=== PATIENT | male | born 1945 | race Caucasian/White ===

== ENCOUNTER 2017-05-23 05:49 | Inpatient (IN) | payer OTHER ==
[2017-05-23] MEDS ORDERED: LIDOCAINE 1% 2 ML INJ ONE (06:08)
[2017-05-23] MEDS ORDERED: LR 1,000 ML IV ONE (06:47)
[2017-05-23 06:52] LABS: % IMMATURE GRANULYOCYTES 0.3 % (0.0-1.1); ABSOLUTE IMMATURE GRANULOCYTES 0.02 10^3/uL (0.00-0.10); ADD DIFF? NO; ADD MORPH? NO; ADD SCAN? NO; ATYPICAL LYMPHOCYTE FLAG 10 (0-99); FRAGMENT RBC FLAG 0 (0-99); HEMATOCRIT 44.5 % (40.0-51.0); LEFT SHIFT FLG 0 (0-99); LIPEMIA HEMOLYSIS FLAG 80 (0-99); MEAN CELL HEMOGLOBIN 31.8 pg (27.9-34.1); MEAN CELL HEMOGLOBIN CONCENTR. 33.7 g/dL (32.4-36.7); MEAN CELL VOLUME 94.5 fL (81.5-99.8); MEAN PLATELET VOLUME 9.4 fL (8.7-11.7); PLATELET CLUMPS FLAG 0 (0-99); PLATELET COUNT 244 10^3/uL (150-400); RED BLOOD CELL COUNT 4.71 10^6/uL (4.40-6.38); RED CELL DISTRIBUTION WIDTH 12.7 % (11.5-15.2)
[2017-05-23] MEDS ORDERED: THROMBIN (BOVINE) 5,000 UNIT VIAL TP ONE (06:52)
[2017-05-23] MEDS ORDERED: BUPIVACAINE/EPI 0.5% 30 ML SDV ONE (06:52)
[2017-05-23] MEDS ORDERED: CALCIUM CHLORIDE 1 GM/10 ML INJ ONE (06:53)
[2017-05-23] MEDS ORDERED: BACITRACIN 50,000 UNITS/10 ML SYR IRR ONE (06:53)
[2017-05-23] MEDS ORDERED: POLYMYXIN B SULFATE 500,000 UNIT/10 ML SYR IRR ONE (06:53)
[2017-05-23] MEDS ORDERED: LIDOCAINE 1% 2 ML INJ ID PRN (07:01)
[2017-05-23] MEDS ORDERED: fentaNYL 100 MCG/2 ML INJ ONE (07:05)
[2017-05-23] MEDS ORDERED: ROPIVACAINE 0.2% 80 MG, EPINEPHrine 0.2 MG, KETOROLAC TROMETHAMINE 30 MG, morphINE 10 M... IU ONE (07:07)
[2017-05-23] MEDS ORDERED: ACETAMINOPHEN 500 MG TAB PO ONE (07:07)
[2017-05-23] MEDS ORDERED: ceFAZolin 2 GM/DEXTROSE 100 ML IV ONE (07:07)
[2017-05-23] MEDS ORDERED: MIDAZOLAM 2 MG/2 ML VIAL ONE (07:08)
[2017-05-23] MEDS ORDERED: PROPOFOL/EMULSION 500 MG/50 ML BOTTLE IV ONE (07:09)
--- NOTE | 2017-05-23 07:09 | PDHPUP ---
History & Physical Update H&P update statement: This history and physical update is based on an assessment of the patient which was completed after admission or registration (within 24 hours), but prior to the surgery/procedure. H&P update: H&P reviewed & patient examined, no change in patient's condition since H&P completed
--- NOTE | 2017-05-23 07:26 | PDGENHP ---
History & Physical Chief Complaint: l knee pain History of Present Illness: l knee pain Pertinent Past, Social, Family History: non-contributory Relevant Physical Exam: varus angle to l knee with spurring medially Cardiorespiratory Assessment: rrr. cta
[2017-05-23] MEDS ORDERED: ONDANSETRON 4 MG/2 ML VIAL ONE (07:54)
[2017-05-23] MEDS ORDERED: ROPIVACAINE HCL 150 MG/30 ML INJ ONE (07:54)
[2017-05-23] MEDS ORDERED: MEPERIDINE 25 MG/ML SYR IVP PRN (08:21)
[2017-05-23] MEDS ORDERED: METOCLOPRAMIDE 10 MG/2 ML VIAL IVP PRN ×2 (08:21→09:32)
[2017-05-23] MEDS ORDERED: ONDANSETRON 4 MG/2 ML VIAL IVP PRN ×2 (08:21→09:32)
[2017-05-23] MEDS ORDERED: PROMETHAZINE HCL 25 MG/ML INJ IVP PRN ×2 (08:21→09:32)
[2017-05-23] MEDS ORDERED: fentaNYL 100 MCG/2 ML INJ IVP PRN (08:21)
[2017-05-23] MEDS ORDERED: LR 500 ML IV PRN (08:21)
[2017-05-23] MEDS ORDERED: NALOXONE HCL 0.4 MG/ML INJ IVP PRN (08:21)
[2017-05-23] MEDS ORDERED: HYDROmorphONE/DILAUDID 1 MG/ML SYR IVP PRN (08:21)
[2017-05-23] MEDS ORDERED: ALBUTEROL 3 ML DEYVIAL IH PRN (08:21)
--- NOTE | 2017-05-23 08:26 | PDANEPAE ---
ANE Past Medical History - Cardiovascular History Hx Hypertension: Yes Hx Arrhythmias: No Hx Chest Pain: No Hx Coronary Artery / Peripheral Vascular Disease: No Hx CHF / Valvular Disease: No Hx Palpitations: No - Pulmonary History Hx COPD: No Hx Asthma/Reactive Airway Disease: No Hx Recent Upper Respiratory Infection: No Hx Oxygen in Use at Home: No Hx Sleep Apnea: Yes Sleep Apnea Screening Result - Last Documented: Positive Pulmonary History Comment: h/o sleep apnea - Neurologic History Hx Cerebrovascular Accident: No Hx Seizures: No Hx Dementia: No - Endocrine History Hx Diabetes: Yes Endocrine History Comment: DMII - Renal History Hx Renal Disorders: No - Liver History Hx Hepatic Disorders: No - Neurological & Psychiatric Hx Hx Neurological and Psychiatric Disorders: No - Cancer History Hx Cancer: No - Congenital Disorder History Hx Congenital Disorders: No - GI History Hx Gastrointestinal Disorders: No - Other Health History Other Health History: missing teeth - Chronic Pain History Chronic Pain: Yes (left knee) - Surgical History Prior Surgeries: left knee scoped. left rotator cuff surgery. heart cath ANE Review of Systems - Exercise capacity METS (RN): 4 METS ANE Patient History - Allergies Allergies/Adverse Reactions: No Known Allergies Allergy (Unverified 04/28/17 11:38) - Home Medications Home Medications: Cholecalciferol Vit D3 [Vitamin D3 (*)] 1,000 units PO DAILY 04/28/17 [Last Taken 1 Week Ago] Fluticasone Nasal [Flonase Nasal [place] (RX)] 1 - 2 sprays NASAL DAILY PRN [Last Taken 1 Week Ago] Herbals/Supplements -Info Only 1 ea PO DAILY 04/28/17 [Last Taken 1 Week Ago] Lisinopril [Zestril 20 mg (*)] 20 mg PO DAILY 04/28/17 [Last Taken 05/23/17 05: 00] Montelukast Sodium [Singulair 10 mg (*)] 10 mg PO HS PRN 04/28/17 [Last Taken ] Simvastatin [Zocor] 20 mg PO HS 04/28/17 [Last Taken 05/22/17 21:00] metFORMIN HCL [Glucophage 500 mg (*)] 500 mg PO DAILY 04/28/17 [Last Taken 05/20 09:00] Naproxen Sodium [Aleve 220 MG (*)] 220 mg PO DAILY PRN 05/05/17 [Last Taken 1 Week Ago] Vicodin 5-300 mg Tablet 05/05/17 [Last Taken 05/22/17 20:00] - NPO status NPO Since - Liquids (Date): 05/22/17 NPO Since - Liquids (Time): 21:00 NPO Since - Solids (Date): 05/22/17 NPO Since - Solids (Time): 18:00 - Smoking Hx Smoking Status: Never smoked - Family Anes Hx Family Hx Anesthesia Complications: none ANE Labs/Vital Signs - Labs Result Diagrams: 05/23/17 06:40 - Vital Signs Blood Pressure: 154/80 Heart Rate: 61 Respiratory Rate: 16 O2 Sat (%): 93 Height: 170.18 cm Weight: 88.451 kg ANE Physical Exam - Airway Neck exam: FROM Mallampati Score: Class 2 Mouth exam: normal dental/mouth exam - Pulmonary Pulmonary: no respiratory distress, clear to auscultation - Cardiovascular Cardiovascular: regular rate and rhythym - ASA Status ASA Status: III ANE Anesthesia Plan Anesthesia Plan: spinal Regional Anesthesia: single shot NB
[2017-05-23] MEDS ORDERED: PHENYLEPHRINE HCL 100 MCG/ML SYR ONE (08:38)
[2017-05-23] MEDS ORDERED: MONTELUKAST SODIUM 10 MG TAB PO PRN (09:31)
[2017-05-23] MEDS ORDERED: FLUTICASONE NASAL 120 SPRAYS/16 GM MDI EACHNARE PRN (09:31)
--- NOTE | 2017-05-23 09:31 | POSTOPPROG ---
Post Op Note Date of Operation: 05/23/17 Surgeon: China Hernandez Airconditioning Plant Operator: kaz Anesthesiologist: pepe Anesthesia: Epidural, IV Sedation Pre-op Diagnosis: l knee oa Procedure: l tkr Inf/Abcess present in the surg proc area at time of surgery?: No Depth: Deep Incisional (Fascial) EBL: 100-500
[2017-05-23] MEDS ORDERED: PHARMACY PAIN CONSULT 1 EA MISC PRN (09:32)
[2017-05-23] MEDS ORDERED: BISACODYL 10 MG SUPP PR PRN (09:32)
[2017-05-23] MEDS ORDERED: TEMAZEPAM 15 MG CAP PO PRN (09:32)
[2017-05-23] MEDS ORDERED: ONDANSETRON DISINTEGRATING 4 MG TAB PO PRN (09:32)
[2017-05-23] MEDS ORDERED: LACTULOSE 20 GM/30 ML UDCUP PO PRN (09:32)
[2017-05-23] MEDS ORDERED: DIPHENOXYLATE/ATROPINE LOMOTIL 1 TAB PO PRN (09:32)
[2017-05-23] MEDS ORDERED: POLYETHYLENE GLYCOL 3350 17 GM PKT PO PRN (09:32)
[2017-05-23] MEDS ORDERED: diphenhydrAMINE 25 MG CAP PO PRN (09:32)
[2017-05-23] MEDS ORDERED: PROMETHAZINE HCL 25 MG SUPPR PR PRN (09:32)
[2017-05-23] MEDS ORDERED: TAPENTADOL HCL 50 MG TAB PO PRN (09:32)
[2017-05-23] MEDS ORDERED: MAGNESIUM HYDROXIDE 30 ML UDCUP PO PRN (09:32)
[2017-05-23] MEDS ORDERED: CYCLOBENZAPRINE 10 MG TAB PO PRN (09:32)
[2017-05-23] MEDS ORDERED: LR 1,000 ML IV SCH (10:00)
--- NOTE | 2017-05-23 10:29 | POSTANESTH ---
Post Anesthetic Evaluation Respiratory Status: Normal, Stable Level of Consciousness/Mental Status: Can Participate in Eval Pain Control: Adequate, Prn Tx Ordered Nausea/Vomiting Control: Adequate, Prn Tx Ordered Complications Possibly Related to Anesthesia: None Noted
--- NOTE | 2017-05-23 11:52 | GOP ---
[f rep st] OPERATIVE REPORT DATE OF OPERATION: 05/23/2017 SURGEON: China Hernandez MD SR. PAYROLL PROCESSOR: Terrell Camara, Certified SA whose presence was medically necessary. ANESTHESIA: By epidural nerve block. PREOPERATIVE DIAGNOSIS: Left knee osteoarthritis. POSTOPERATIVE DIAGNOSIS: Left knee osteoarthritis. PROCEDURE PERFORMED: Left total knee arthroplasty. FINDINGS: INDICATIONS: This is a 71-year-old male with a long history of left knee pain worsening with use with time. X-ray exam reveals [id number] osteoarthritic changes to the medial compartment. He wishes to have surgery in order to resolve the problem. DESCRIPTION OF PROCEDURE: Patient was brought to the operating room after the left side had been identified as the correct side by the patient, nurse, and physician. Once in the operating room he was given an epidural nerve block. He then had a tourniquet placed around the upper portion of the left thigh, and the left lower extremity sterilely prepped and draped in usual fashion using a GSI solution. Once prepped and draped, the limb was exsanguinated, tourniquet inflated to 250 mmHg. An anterior incision was made along with skin 1 handbreadth above and below the patella, but not using a prior parapatellar skin incision. Sharp dissection was carried down through the skin and subcutaneous layers where bleeding controlled using electrocautery. A medial parapatellar approach was carried through the extensor mechanism with the extensor mechanism brought to the thigh but not everted. He was noted to have idat-np-gemo osteoarthritic changes to the medial compartment, and significant osteoarthritic changes to the lateral compartment. The ACL as well as the medial lateral meniscus were removed. A drill hole was made 1 cm anterior to the intercondylar notch with an intramedullary guide placed within the femur. The femur was set to remove 10 mm of bone from the distal end of the femur with 6 degrees of valgus. Once pinned into place the guide huan was removed. Cutting block had a locking pin placed within it and oscillating saw was used to remove the distal end of the femur. Once achieving a flat cut the knee was brought to maximal flexion with cartilage removed from the posterior condyles of the lateral femoral condyle. A sizing guide was placed on the cut surface of the bone. It was noted that a size 4 seemed to fit best without notching the anterior cortex of the femur. Pin holes were made, and a size 4, 4 in 1 cutting block was put into place, and the anterior, posterior, and chamfer cuts were made. A size 4 trial was put into place, noted to fit securely. The knee was brought to full extension to ensure an adequate amount of bone was removed from the femur and the knee was able to achieve full extension. Lug holes were drilled for the femoral component. Femoral trial was removed. Attention was then turned to the proximal tibia. With the knee fully flexed and subluxed with the tibia subluxed anteriorly, an external tibial guide was put into place, set in neutral varus valgus and slight posterior slope. Once pinned into place it was set to remove 2 mm of bone from the low side of the tibia which was the medial side. Once pinned into place, drop huan was used to ensure proper alignment, and a locking pin placed within the tibial guide. Oscillating saw was passed through the guide, and the proximal portion of the tibia was removed. Once removed and achieving a flat surface trial femur tibia and trial liner was placed in the tibial tray. The knee was able to achieve full extension suggesting adequate removal of bone. Therefore, trials were removed. The knee was brought back to maximum flexion, tibia subluxed anteriorly. Multiple sizes were trialed onto the tibia and noted a size 4 seemed to fit best. Therefore, a size 4 trial was pinned into place. Keel punch was passed through the guide into the proximal femur and then a secondary punch guide was placed onto the proximal tibia to accommodate a cementless tibial component. Once this guide was removed the wound was irrigated with a bulb syringe to remove any bony fragment, at which point a size 4 cementless tibial component from [place] was put into place, noted to fit securely. A size 4 cruciate retaining cementless femoral component was then put in place and noted to fit securely. Multiple trials were placed in the tibial tray and noted that an 11 mm polyethylene trial seemed to fit best. Therefore, an 11 mm poly component was put into place. Since the patient did not have a patella no resurfacing of the patella had to be done. Once completed the tourniquet was deflated at 50 minutes. Any bleeding was controlled using electrocautery. The extensor mechanism was closed using 0 Vicryl suture in a qixmpt-yy-hljte type stitch with plasma gel placed within the intra-articular portion. 0 Vicryl and 2-0 Vicryl suture were used for the subcutaneous layers with plasma gel placed external to the extensor mechanism, and a 3-0 V-Loc suture was used to close the skin. 30 cc of Marcaine had been infused around the actual incision site and joint cocktail had been injected around the periosteum of the femur and the tibia in order to alleviate the pain. The skin was then dressed with Steri-Strips, Xeroform, 4 x 4, and Kerlix. The leg was completely undraped in the operating room, tourniquet removed from the thigh, and an Oliver wrap placed around the knee. The patient was then transferred onto the stretcher, and sent to recovery room in good condition. TOURNIQUET TIME: 50 minutes. /[id number]/MODL MTDD
[2017-05-23] MEDS: KETOROLAC 30 MG/1 ML SDV IVP SCH ×2 (14:28→18:09)
[2017-05-23] MEDS: ceFAZolin 2 GM/DEXTROSE 100 ML IV SCH ×2 (14:28→21:32)
[2017-05-23] MEDS: ACETAMINOPHEN 325 MG TAB PO SCH ×2 (14:29→18:10)
[2017-05-23] MEDS: oxyCODONE IR 5 MG TAB PO PRN ×2 (14:45→20:04)
[2017-05-23] MEDS: traMADol 50 MG TAB PO SCH ×2 (14:51→17:28)
[2017-05-23] MEDS: SENNOSIDES/DOCUSATE SODIUM TAB PO SCH (20:05)
[2017-05-23] MEDS: FAMOTIDINE 20 MG TAB PO SCH (20:05)
[2017-05-23] MEDS ORDERED: NON-FORMULARY NEW DRUG (Simvastatin [Zocor] 20 MG) PO SCH (21:00)
[2017-05-23] MEDS ORDERED: ATORVASTATIN CALCIUM 10 MG TAB PO SCH (21:00)
[2017-05-24] MEDS: ACETAMINOPHEN 325 MG TAB PO SCH ×3 (00:13→11:59)
[2017-05-24] MEDS: traMADol 50 MG TAB PO SCH ×3 (00:13→12:00)
[2017-05-24] MEDS: KETOROLAC 30 MG/1 ML SDV IVP SCH ×3 (00:13→11:59)
[2017-05-24 05:24] LABS: HEMATOCRIT 33.8 % (40.0-51.0); HEMOGLOBIN 11.2 g/dL (13.7-17.5)
[2017-05-24] MEDS: oxyCODONE IR 5 MG TAB PO PRN ×2 (05:47→12:49)
[2017-05-24 07:43] VITALS: PULSE 64
[2017-05-24] MEDS: SENNOSIDES/DOCUSATE SODIUM TAB PO SCH (08:27)
[2017-05-24] MEDS: FAMOTIDINE 20 MG TAB PO SCH (08:28)
[2017-05-24] MEDS ORDERED: metFORMIN HCL 500 MG TAB PO SCH (09:00)
[2017-05-24] MEDS ORDERED: FERROUS SULFATE 140 MG TAB.ER PO SCH (09:00)
[2017-05-24] MEDS ORDERED: CHOLECALCIFEROL VIT D3 1,000 UNITS TAB PO SCH (09:00)
[2017-05-24] MEDS ORDERED: RIVAROXABAN 10 MG TAB PO SCH (09:00)
[2017-05-24] MEDS ORDERED: LISINOPRIL 20 MG TAB PO SCH (09:00)
--- NOTE | 2017-05-24 11:25 | SOAPPROG ---
SOAP Progress Note Assessment/Plan: Assessment: Plan: - d/c home 05/24/17 11:23 Subjective: Pain controlled w oxy, no issues, did PT today, feels ready to go home Objective: Vital Signs Temp Pulse Resp BP Pulse Ox 37.1 C 64 16 119/55 L 97 05/24/17 07:42 05/24/17 07:42 05/24/17 07:42 05/24/17 08:28 05/24/17 07:42 Laboratory Results 05/24/17 04:26 05/23/17 05/24/17 05/25/17 05:59 05:59 05:59 Intake Total 4050 Output Total 855 Balance 3195 Dressing removed, small amount of bloody drainage, dressing was soaked with blood, moderate effusion, calf NT, neg homman's, NVI - Time Spent With Patient Time Spent With Patient: 20 - Pending Discharge Pending Discharge Within 24 Hours: Yes Pending Discharge Within 48 Hours: No Pending Discharge Date: 05/25/17 Pending Discharge Time: 11:00 ICD10 Worksheet Patient Problems: Problems Problem Status Onset Arthritis of right knee Acute - ICD10 Problem Qualifiers (1) Arthritis of right knee
--- NOTE | 2017-05-24 11:28 | PDIAF ---
- Diagnosis Code Status: Full Code - Medication Management Discharge Medications: Medications to Continue on Transfer Cholecalciferol Vit D3 [Vitamin D3 (*)] 1,000 units PO DAILY 04/28/17 [Last Taken 1 Week Ago] Fluticasone Nasal [Flonase Nasal [place]] 1 - 2 sprays NASAL DAILY PRN 04/28/17 [ Last Taken 1 Week Ago] Herbals/Supplements -Info Only 1 ea PO DAILY 04/28/17 [Last Taken 1 Week Ago] Lisinopril [Zestril 20 mg (*)] 20 mg PO DAILY 04/28/17 [Last Taken 05/23/17 05: 00] Montelukast Sodium [Singulair 10 mg (*)] 10 mg PO HS PRN 04/28/17 [Last Taken ] Simvastatin [Zocor] 20 mg PO HS 04/28/17 [Last Taken 05/22/17 21:00] metFORMIN HCL [Glucophage 500 mg (*)] 500 mg PO DAILY 04/28/17 [Last Taken 05/20 09:00] Hydrocodone/APAP 5/325 [[place] 5/325 (*)] 1 tab PO HS 05/05/17 [Last Taken ] Naproxen Sodium [Aleve 220 MG (*)] 220 mg PO DAILY PRN 05/05/17 [Last Taken 1 Week Ago] oxyCODONE IR [Oxycodone Ir (*)] 5 - 10 mg PO Q4HRS PRN 05/23/17 [Last Taken Unknown] Acetaminophen [Tylenol 325mg (*)] 650 mg PO Q6HRS #0 tab 05/24/17 [Last Taken Unknown] Rivaroxaban [Xarelto 10mg (*)] 10 mg PO DAILY #0 tab 05/24/17 [Last Taken Unknown] oxyCODONE IR [Oxycodone Ir (*)] 5 - 10 mg PO Q3HRS PRN #0 tab 05/24/17 [Last Taken Unknown] Discharge Medications: Refer to the Discharge Home Medication list for PRN reason. PICC Care - Routine: N/A - Orders Services needed: Physical Therapy Diet Recommendation: no restrictions on diet Diet Texture: Regular Texture Diet [place]: Not applicable Wound Care Instructions: Change dressing to coverderm on. Monday morning. If bleeding soaks through will call office tomorrow Activity/Weight Bearing Restrictions: wbat - Follow Up Care Current Providers and Referrals: Sandra Parson MD [Primary Care Provider] -
[2017-05-24 11:35] VITALS: BP 110/55; RESP 15; TEMP 98.6; O2SAT 92
== END 2017-05-24 14:21 | disposition home health service (06) | DRG 470 ==
LOC: F3N 05:49
PROVIDERS: ADMIT Orthopaedic Surgery; ATTEND Orthopaedic Surgery
PROC: 0SRD0JA Replacement of Left Knee Joint with Synthetic Substitute, Uncemented, Open Approach (ICD-10-PCS; principal; 2017-05-23 07:15)
DX: M17.12 Unilateral primary osteoarthritis, left knee (principal)
CPT/HCPCS: 97110-GP; 97116-GP; 97161-GP; 97165-GO; G8978-GP-CJ; G8979-GP-CI; G8987-GO-CI; G8988-GO-CI; G8989-GO-CI; J0171; J0690; J1885; J2250; J2370; J2405; J2704; J2795; J3010

== ENCOUNTER 2017-05-26 11:51 | Inpatient (IN) | payer OTHER ==
[2017-05-26] MEDS ORDERED: LIDOCAINE 1% 2 ML INJ ONE (12:12)
[2017-05-26] MEDS ORDERED: ACETAMINOPHEN 500 MG TAB PO ONE (12:40)
[2017-05-26] MEDS ORDERED: ceFAZolin 2 GM/DEXTROSE 100 ML IV ONE (12:40)
[2017-05-26] MEDS ORDERED: ACETAMINOPHEN 500 MG TAB ONE (12:48)
[2017-05-26] MEDS ORDERED: CEFAZOLIN 2 GM/DEXTROSE/100 ML BAG IV ONE (12:48)
[2017-05-26] MEDS ORDERED: BUPIVACAINE/EPI 0.5% 30 ML SDV ONE (13:07)
[2017-05-26] MEDS ORDERED: BACITRACIN 50,000 UNITS/10 ML SYR IRR ONE (13:07)
[2017-05-26] MEDS ORDERED: POLYMYXIN B SULFATE 500,000 UNIT/10 ML SYR IRR ONE (13:07)
[2017-05-26] MEDS ORDERED: LR 1,000 ML IV ONE (13:13)
[2017-05-26] MEDS ORDERED: LIDOCAINE 1% 2 ML INJ ID PRN (13:13)
[2017-05-26] MEDS ORDERED: fentaNYL 100 MCG/2 ML INJ ONE ×4 (13:59→16:06)
[2017-05-26] MEDS ORDERED: PROPOFOL 200 MG/20 ML VIAL ONE (13:59)
[2017-05-26] MEDS ORDERED: LIDOCAINE 2% 100 MG/5 ML SYR ONE (14:00)
[2017-05-26] MEDS ORDERED: METOCLOPRAMIDE 10 MG/2 ML VIAL ONE (14:00)
--- NOTE | 2017-05-26 14:09 | GHP ---
[f rep st] PREOP HISTORY AND PHYSICAL DATE OF ADMISSION: 05/26/2017 CURRENT COMPLAINT: Left knee wound dehiscence. HISTORY OF PRESENT ILLNESS: The patient is a 71-year-old male who this week had undergone a left to duran knee arthroplasty. He had been discharged from the hospital the next day. He began physical th erapy yesterday, and has had an excessive amount of bleeding underneath his dressing since then. ALLERGIES: He has no drug allergies. MEDICATIONS: Include fluticasone, lisinopril, metformin, montelukast, ProAir, and simvastatin. PAST MEDICAL HISTORY: Prior medical problems include diabetes, high cholesterol, and sleep apnea. Prior surgeries include removal of a kneecap in 1967, cardiac catheterization in 2004, and orthopedi c surgery x3. PHYSICAL EXAM: HEENT: Patient's pupils equal, round, and reactive to light. CHEST: Clear to ausc ultation. HEART: Regular rate and rhythm. ABDOMEN: Soft and nontender. EXTREMITIES: His left k nee has an open wound approximately 6 cm long and approximately 3 cm wide; at this point, he has a c lot noted in the middle with a small amount of bloody oozing coming from around the wound itself. T here is no significant erythema, and there is no purulence noted. ASSESSMENT AND PLAN: The patient is status post left knee wound dehiscence. He is to go to the ope rating room for formal irrigation and debridement, and subsequent 23-hour observation for antibiotic s. /[id number]/MODL
--- NOTE | 2017-05-26 14:10 | PDANEPAE ---
ANE History of Present Illness s/p l tka ANE Past Medical History - Cardiovascular History Hx Hypertension: Yes Hx Arrhythmias: No Hx Chest Pain: No Hx Coronary Artery / Peripheral Vascular Disease: No Hx CHF / Valvular Disease: No Hx Palpitations: No - Pulmonary History Hx COPD: No Hx Asthma/Reactive Airway Disease: No Hx Recent Upper Respiratory Infection: No Hx Oxygen in Use at Home: No Hx Sleep Apnea: Yes Pulmonary History Comment: h/o sleep apnea - Neurologic History Hx Cerebrovascular Accident: No Hx Seizures: No Hx Dementia: No - Endocrine History Hx Diabetes: Yes Obesity: moderate Endocrine History Comment: DMII - Renal History Hx Renal Disorders: No - Liver History Hx Hepatic Disorders: No - Neurological & Psychiatric Hx Hx Neurological and Psychiatric Disorders: No - Cancer History Hx Cancer: No - Congenital Disorder History Hx Congenital Disorders: No - GI History Hx Gastrointestinal Disorders: No - Other Health History Other Health History: missing teeth - Chronic Pain History Chronic Pain: Yes (left knee) - Surgical History Prior Surgeries: left knee scoped, replaced. left rotator cuff surgery. heart cath ANE Review of Systems - Exercise capacity METS (RN): 3 METS ANE Patient History - Allergies Allergies/Adverse Reactions: No Known Allergies Allergy (Unverified 04/28/17 11:38) - Home Medications Home Medications: Cholecalciferol Vit D3 [Vitamin D3 (*)] 1,000 units PO DAILY 04/28/17 [Last Taken 1 Week Ago] Fluticasone Nasal [Flonase Nasal [place]] 1 - 2 sprays NASAL DAILY PRN 04/28/17 [ Last Taken 1 Week Ago] Herbals/Supplements -Info Only 1 ea PO DAILY 04/28/17 [Last Taken 1 Week Ago] Lisinopril [Zestril 20 mg (*)] 20 mg PO DAILY 04/28/17 [Last Taken 05/26/17 08: 00] Montelukast Sodium [Singulair 10 mg (*)] 10 mg PO HS PRN 04/28/17 [Last Taken ] Simvastatin [Zocor] 20 mg PO HS 04/28/17 [Last Taken 05/25/17 20:00] metFORMIN HCL [Glucophage 500 mg (*)] 500 mg PO DAILY 04/28/17 [Last Taken 05/26 08:00] Hydrocodone/APAP 5/325 [[place] 5/325 (*)] 1 tab PO HS 05/05/17 [Last Taken ] Naproxen Sodium [Aleve 220 MG (*)] 220 mg PO DAILY PRN 05/05/17 [Last Taken 20:00] oxyCODONE IR [Oxycodone Ir (*)] 5 - 10 mg PO Q4HRS PRN 05/23/17 [Last Taken 11:00] - NPO status NPO Since - Liquids (Date): 05/26/17 NPO Since - Liquids (Time): 13:00 NPO Since - Solids (Date): 05/25/17 NPO Since - Solids (Time): 20:00 - Smoking Hx Smoking Status: Never smoked - Family Anes Hx Family Hx Anesthesia Complications: none ANE Labs/Vital Signs - Vital Signs Blood Pressure: 132/57 Heart Rate: 88 Respiratory Rate: 16 O2 Sat (%): 92 Height: 170.18 cm Weight: 88.451 kg ANE Physical Exam - Airway Mallampati Score: Class 3 Mouth exam: small mouth opening - ASA Status ASA Status: III ANE Anesthesia Plan Anesthesia Plan: GA w LMA
[2017-05-26] MEDS ORDERED: PHARMACY PAIN CONSULT 1 EA MISC PRN (15:40)
[2017-05-26] MEDS ORDERED: BISACODYL 10 MG SUPP PR PRN (15:40)
[2017-05-26] MEDS ORDERED: DIPHENOXYLATE/ATROPINE LOMOTIL 1 TAB PO PRN (15:40)
[2017-05-26] MEDS: fentaNYL 100 MCG/2 ML INJ IVP PRN ×4 (15:40→16:22)
[2017-05-26] MEDS ORDERED: ONDANSETRON DISINTEGRATING 4 MG TAB PO PRN (15:40)
[2017-05-26] MEDS ORDERED: PROMETHAZINE HCL 25 MG/ML INJ IVP PRN (15:40)
[2017-05-26] MEDS ORDERED: ONDANSETRON 4 MG/2 ML VIAL IVP PRN ×2 (15:40→15:43)
[2017-05-26] MEDS ORDERED: TAPENTADOL HCL 50 MG TAB PO PRN (15:40)
[2017-05-26] MEDS ORDERED: diphenhydrAMINE 25 MG CAP PO PRN (15:40)
[2017-05-26] MEDS ORDERED: POLYETHYLENE GLYCOL 3350 17 GM PKT PO PRN (15:40)
[2017-05-26] MEDS ORDERED: METOCLOPRAMIDE 10 MG/2 ML VIAL IVP PRN (15:40)
[2017-05-26] MEDS ORDERED: LACTULOSE 20 GM/30 ML UDCUP PO PRN (15:40)
[2017-05-26] MEDS ORDERED: MAGNESIUM HYDROXIDE 30 ML UDCUP PO PRN (15:40)
[2017-05-26] MEDS ORDERED: PROMETHAZINE HCL 25 MG SUPPR PR PRN (15:40)
[2017-05-26] MEDS ORDERED: TEMAZEPAM 15 MG CAP PO PRN (15:40)
--- NOTE | 2017-05-26 15:40 | POSTOPPROG ---
Post Op Note Date of Operation: 05/26/17 Surgeon: China Hernandez Anesthesiologist: crystal Anesthesia: LMA Pre-op Diagnosis: l knee dehisence Procedure: l knee I&D with closure Inf/Abcess present in the surg proc area at time of surgery?: Yes Depth: Deep Incisional (Fascial) EBL: 100-500
[2017-05-26] MEDS ORDERED: MEPERIDINE 25 MG/ML SYR IVP PRN (15:43)
[2017-05-26] MEDS ORDERED: LR 500 ML IV PRN (15:43)
[2017-05-26] MEDS ORDERED: ACETAMINOPHEN 500 MG TAB PO PRN (15:43)
[2017-05-26] MEDS ORDERED: NALOXONE HCL 0.4 MG/ML INJ IVP PRN (15:43)
--- NOTE | 2017-05-26 15:45 | POSTANESTH ---
Post Anesthetic Evaluation Cardiovascular Status: Normal, Stable Respiratory Status: Normal, Stable Level of Consciousness/Mental Status: Can Participate in Eval Pain Control: Adequate, Prn Tx Ordered Nausea/Vomiting Control: Adequate, Prn Tx Ordered Complications Possibly Related to Anesthesia: None Noted
[2017-05-26] MEDS ORDERED: LR 1,000 ML IV SCH (16:00)
[2017-05-26] MEDS ORDERED: oxyCODONE IR 5 MG TAB ONE (16:55)
[2017-05-26] MEDS: oxyCODONE IR 5 MG TAB PO PRN ×2 (16:57→19:52)
--- NOTE | 2017-05-26 17:00 | GOP ---
[f rep st] OPERATIVE REPORT DATE OF OPERATION: 05/26/2017 SURGEON: China Hernandez MD ANESTHESIA: LMA. PREOPERATIVE DIAGNOSIS: Left knee wound dehiscence. POSTOPERATIVE DIAGNOSIS: Left knee wound dehiscence, with extensor mechanism dehiscence. PROCEDURE PERFORMED: Left knee irrigation and debridement, with closure of the extensor mechanism a nd the skin. FINDINGS: INDICATIONS: This is a 71-year-old male, who had undergone a left total knee arthroplasty on , went to physical therapy yesterday, noted a significant increase in bleeding, was seen in the off ice today. Once the dressings were removed, he was noted to have a wound dehiscence. [facility] to take him to the operating room directly today. DESCRIPTION OF PROCEDURE: Patient was brought to the operating room after the left side had been id entified as the correct side by the patient, nurse and physician. Once in the operating room, he wa s placed under general anesthesia using an LMA. Once asleep, tourniquet was placed around the upper portion of the left thigh, and the left lower extremity sterilely prepped and draped in usual fashi on using GSI solution. The limb was elevated for 2 minutes, at which point, the tourniquet was infl ated to 250 mmHg. The wound was opened and found to have dehiscence, not only of the cutaneous and subcutaneous layers, but also into the extensor mechanism. Therefore, the skin wound was extended i n order to further examine the extensor mechanism, which was noted to have a great deal of it having opened. Multiple Vicryl sutures as well as the V-Loc subcuticular closure sutures were removed. T here was abundant amount of blood and clotted blood within the knee and into the medial and lateral gutters. These were taken down, removed. 3 L of antibiotic solution was irrigated via bulb syringe through the knee joint, and then some in the subcutaneous tissues, with 0 Vicryl suture then used t o close the extensor mechanism in a [id number]-rj-[id number] type stitch. Another liter of fluid was irrigat ed through the subcutaneous tissue and over the extensor mechanism, with 0 Vicryl and 2-0 Vicryl sut ure used to close the subcutaneous layers, and a 2-0 nylon suture in a vertical mattress type stitch to close the skin. The tourniquet was deflated at 33 minutes. The wound was dressed with Xeroform, 4 x 4's, wrapped in Kerlix. Leg was completely undraped in the operating room, tourniquet removed from the thigh, and an Oliver wrap placed around the knee. He was then woken up, extubated, transferred onto a stretcher, and sent to recovery room in good condition. TOURNIQUET TIME: 33 minutes. /[id number]/MODL
[2017-05-26] MEDS: ACETAMINOPHEN 325 MG TAB PO SCH ×2 (18:25→23:39)
[2017-05-26] MEDS: traMADol 50 MG TAB PO SCH ×2 (18:25→23:39)
[2017-05-26] MEDS: FAMOTIDINE 20 MG TAB PO SCH (19:52)
[2017-05-26] MEDS: SENNOSIDES/DOCUSATE SODIUM TAB PO SCH (19:52)
[2017-05-26] MEDS: ceFAZolin 2 GM/DEXTROSE 100 ML IV SCH (22:22)
[2017-05-26] MEDS: LR 1,000 ML IV SCH (22:22)
[2017-05-27] MEDS: oxyCODONE IR 5 MG TAB PO PRN ×6 (00:44→17:29)
[2017-05-27 05:07] LABS: HEMATOCRIT 24.7 % (40.0-51.0); HEMOGLOBIN 8.2 g/dL (13.7-17.5)
[2017-05-27] MEDS: traMADol 50 MG TAB PO SCH ×4 (05:13→23:04)
[2017-05-27] MEDS: ceFAZolin 2 GM/DEXTROSE 100 ML IV SCH (05:13)
[2017-05-27] MEDS: ACETAMINOPHEN 325 MG TAB PO SCH ×4 (05:13→23:04)
[2017-05-27] MEDS: FAMOTIDINE 20 MG TAB PO SCH ×2 (07:50→19:56)
[2017-05-27] MEDS: SENNOSIDES/DOCUSATE SODIUM TAB PO SCH ×2 (07:50→19:55)
[2017-05-27] MEDS: LR 1,000 ML IV SCH (07:56)
[2017-05-27] MEDS: CYCLOBENZAPRINE 10 MG TAB PO PRN ×2 (11:54→19:56)
--- NOTE | 2017-05-27 14:48 | SOAPPROG ---
SOAP Progress Note Assessment/Plan: Assessment: Plan: Subjective: states he's not getting his pain meds as prescribed he is also not getting his home meds dressing C&D foot NVI brace in place get pain under control with better timing of pain meds, especially scheduled meds i am unable to check off home meds due to computer issue but he should those that aren't put on hold by me. await ID input for probable IV anitbiotic treatment Objective: Vital Signs Temp Pulse Resp BP Pulse Ox 36.8 C 66 16 112/50 L 95 05/27/17 11:00 05/27/17 11:00 05/27/17 11:00 05/27/17 11:00 05/27/17 11:00 Laboratory Results 05/27/17 04:26 05/26/17 05/27/17 05/28/17 05:59 05:59 05:59 Intake Total 1750 Output Total 800 250 Balance 950 -250 ICD10 Worksheet Patient Problems: Problems Problem Status Onset Arthritis of right knee Acute
[2017-05-27] MEDS ORDERED: FLUTICASONE NASAL 120 SPRAYS/16 GM MDI EACHNARE PRN (14:50)
[2017-05-27] MEDS ORDERED: MONTELUKAST SODIUM 10 MG TAB PO PRN (14:50)
[2017-05-27] MEDS: VANCOMYCIN HCL/NORMAL SALINE 250 ML IV SCH (15:35)
[2017-05-27 16:00] LABS: % IMMATURE GRANULYOCYTES 0.6 % (0.0-1.1); ABSOLUTE IMMATURE GRANULOCYTES 0.06 10^3/uL (0.00-0.10); ADD DIFF? NO; ADD MORPH? NO; ADD SCAN? NO; ATYPICAL LYMPHOCYTE FLAG 10 (0-99); FRAGMENT RBC FLAG 0 (0-99); HEMATOCRIT 24.5 % (40.0-51.0); HEMOGLOBIN 8.3 g/dL (13.7-17.5); LEFT SHIFT FLG 10 (0-99); LIPEMIA HEMOLYSIS FLAG 90 (0-99); MEAN CELL HEMOGLOBIN 32.7 pg (27.9-34.1); MEAN CELL HEMOGLOBIN CONCENTR. 33.9 g/dL (32.4-36.7); MEAN CELL VOLUME 96.5 fL (81.5-99.8); MEAN PLATELET VOLUME 9.4 fL (8.7-11.7); PLATELET CLUMPS FLAG 30 (0-99); PLATELET COUNT 230 10^3/uL (150-400); RED BLOOD CELL COUNT 2.54 10^6/uL (4.40-6.38); RED CELL DISTRIBUTION WIDTH 12.6 % (11.5-15.2)
[2017-05-27 16:11] LABS: ALANINE AMINOTRANSFERASE 29 IU/L (21-72); ALBUMIN 2.6 g/dL (3.5-5.0); ALKALINE PHOSPHATASE 51 IU/L (38-126); ANION GAP 8 mEq/L (8-16); ASPARTATE AMINOTRANSFERASE 24 IU/L (17-59); BILIRUBIN,TOTAL 0.6 mg/dL (0.1-1.4); CALCIUM 8.4 mg/dL (8.5-10.4); CARBON DIOXIDE 26 mEq/l (22-31); CHLORIDE 100 mEq/L (97-110); CREATININE 0.9 mg/dL (0.7-1.3); GLOMERULAR FILTRATION RATE > 60; GLUCOSE 123 mg/dL (70-100); POTASSIUM 3.7 mEq/L (3.5-5.2); SODIUM 134 mEq/L (134-144); TOTAL PROTEIN 4.9 g/dL (6.3-8.2)
[2017-05-27 16:27] LABS: C-REACTIVE PROTEIN 125.1 mg/L (<10.0)
[2017-05-27] MEDS: ATORVASTATIN CALCIUM 10 MG TAB PO SCH (19:55)
--- NOTE | 2017-05-27 20:34 | GCON ---
[f rep st] CONSULTATION INFECTIOUS DISEASE CONSULTATION DATE OF CONSULTATION: 05/27/2017 REFERRING PHYSICIAN: China Hernandez MD REASON FOR CONSULTATION: Left knee wound dehiscence after recent total knee arthroplasty. HISTORY OF PRESENT ILLNESS: The patient is a 71-year-old male who underwent left total knee arthrop lasty on 05/23/2017. Postoperatively, the patient notes that he had significant bleeding from his k nee incision. He does describe standing up with the help of nurses and aids during his post hospita l course and had a short period where his knees buckled, but he did not actually fall. After hospit al discharge, he continued to have bleeding from the knee incision. He was seen yesterday and furth er evaluation by Orthopedic Surgery yesterday, based on the increased bleeding, and was noted at finesse t time to have dehiscence of his surgical incision. He subsequently was taken to the operating room for debridement and wound closure. Intraoperatively, it was noted that he had dehiscence of the cu taneous and subcutaneous layers as well as the extensor mechanism extending into the joint. The pat ient underwent irrigation and debridement with retention of hardware and closure of his surgical inc isions. He did not have any preceding fever or chills. He did note that he had some erythema surro unding his knee. Intraoperative cultures are not available. Given the wound dehiscence with disrup tion of extensor mechanism and penetration into joint space, I am now asked to assist in his ongoing management and make recommendations regarding antibiotic therapy. PAST MEDICAL HISTORY: Diabetes mellitus, hypercholesterolemia, sleep apnea, hypertension. PAST SURGICAL HISTORY: As above, rotator cuff surgery, removal of left knee cap during ser vice. CURRENT MEDICATIONS: Lipitor 10 mg p.o. at bedtime, Celebrex 200 mg p.o. daily, Flexeril 10 mg as n eeded q.8 hours, Pepcid 20 mg p.o. twice daily, lisinopril 20 mg p.o. daily, metformin 500 mg p.o. d aily, Singulair 10 mg p.o. at bedtime, Xarelto 10 mg p.o. daily, Ultram 50 mg p.o. q.6 hours. ALLERGIES: No known drug allergies. SOCIAL HISTORY: No tobacco use. Patient drinks 3-4 glasses of wine daily. FAMILY HISTORY: Coronary artery disease. REVIEW OF SYSTEMS: Outside that noted in the HPI, remainder of a 10 system review is unremarkable. PHYSICAL EXAMINATION: VITAL SIGNS: Temperature 36.8, heart rate 74, blood pressure 112/61, oxygen saturation 92% on room air. GENERAL: Patient is well nourished, well developed, in no acute distre ss. He appears nontoxic. HEENT: There is no scleral icterus, conjunctival injection, or conjuncti lex petechiae. Oropharynx is clear without lesions. Dentition is in fair repair. There is no nasa l discharge. There is no tenderness over the frontal, maxillary, or mastoid area. NECK: Supple wi thout palpable lymphadenopathy or thyromegaly. CHEST: Clear to auscultation bilaterally without ad ventitious sounds. Respiratory effort is normal. CARDIOVASCULAR: Regular rate and rhythm without murmurs, gallops, or rubs. ABDOMEN: Soft, nontender, nondistended. There is no palpable organomeg chuy. Bowel sounds are present. MUSCULOSKELETAL: Left lower extremity is dressed postoperatively. No erythema above dressing margin. The patient is able to wiggle his toes without difficulty. SKI N: No rash is noted. No stigmata of endocarditis. Skin is warm and dry to touch. LYMPHATICS: No cervical or supraclavicular nodes palpable. NEUROLOGIC: Patient is alert and interacts appropriat murpyh with the examiner. Cranial nerves 2 through 12 are grossly intact. Sensation is grossly intact . Muscle tone and bulk are normal. LABORATORY DATA: Hematocrit 24.7. 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 Most likely pathogens would be related to skin tylor including Staphylococcus aureus, beta-hemolytic streptococc i, or coagulase-negative staphylococci. Most typical duration of treatment would be 6 weeks, althou gh given no overt infection present, could consider potential modified treatment course with initial 2 weeks of IV antibiotic therapy followed by oral antibiotic therapy. This will be discussed with patient over time. RECOMMENDATIONS: 1. Baseline CBC, CMP, and CRP. 2. Vancomycin 1 g IV q.12 hours. 3. Discussed with patient and plans for IV antibiotic therapy and need for PICC line placement over time. Thank you for this consultation. We will continue to follow the patient with you. /[id number]/MODL
[2017-05-27] MEDS ORDERED: NON-FORMULARY NEW DRUG (Simvastatin [Zocor] 20 MG) PO SCH (21:00)
[2017-05-27] MEDS ORDERED: DIAZEPAM 5 MG TAB PO PRN (22:50)
[2017-05-27] MEDS ORDERED: DIAZEPAM 10 MG/2 ML SYR IVP ONE (22:50)
[2017-05-28] MEDS: VANCOMYCIN HCL/NORMAL SALINE 250 ML IV SCH ×4 (03:12→15:50)
[2017-05-28] MEDS: oxyCODONE IR 5 MG TAB PO PRN ×5 (03:17→20:54)
[2017-05-28] MEDS: traMADol 50 MG TAB PO SCH ×4 (04:59→23:14)
[2017-05-28] MEDS: ACETAMINOPHEN 325 MG TAB PO SCH ×4 (05:00→23:15)
[2017-05-28 05:06] LABS: HEMATOCRIT 24.6 % (40.0-51.0); HEMOGLOBIN 8.2 g/dL (13.7-17.5)
[2017-05-28 05:32] LABS: ANION GAP 7 mEq/L (8-16); CALCIUM 8.5 mg/dL (8.5-10.4); CARBON DIOXIDE 25 mEq/l (22-31); CHLORIDE 104 mEq/L (97-110); CREATININE 0.7 mg/dL (0.7-1.3); GLOMERULAR FILTRATION RATE > 60; GLUCOSE 94 mg/dL (70-100); POTASSIUM 4.1 mEq/L (3.5-5.2); SODIUM 136 mEq/L (134-144)
[2017-05-28] MEDS: CYCLOBENZAPRINE 10 MG TAB PO PRN ×2 (08:39→21:43)
[2017-05-28] MEDS: metFORMIN HCL 500 MG TAB PO SCH (08:39)
[2017-05-28] MEDS: SENNOSIDES/DOCUSATE SODIUM TAB PO SCH ×2 (08:39→20:54)
[2017-05-28] MEDS: FAMOTIDINE 20 MG TAB PO SCH ×2 (08:40→20:53)
[2017-05-28] MEDS: RIVAROXABAN 10 MG TAB PO SCH (08:40)
[2017-05-28] MEDS: LISINOPRIL 20 MG TAB PO SCH (08:40)
[2017-05-28] MEDS ORDERED: metFORMIN HCL 500 MG TAB PO SCH (09:00)
--- NOTE | 2017-05-28 09:06 | GCON ---
[f rep st] CONSULTATION MEDICINE CONSULTATION DATE OF CONSULTATION: 05/27/2017 This is a medicine consultation at the request of Dr. China Hernandez for evaluation and management of pos sible seizure. CHIEF COMPLAINT: Question of seizure. HISTORY OF PRESENT ILLNESS: This is a 71-year-old man with past medical history of diabetes and obs tructive sleep apnea, who is status post a left total knee arthroplasty on 05/23/2017, which was com plicated by significant postoperative bleeding and ultimate wound dehiscence leading to repeat hospi talization on 05/26. He has undergone irrigation and debridement of his dehisced wound and subseque nt wound closure. He has not had a fever or other signs of infection, however, given the dehiscence was communicating with his joint space, it is being treated as a prosthetic joint infection, and ID is following. The patient noted that twice this evening while he was on the verge of falling aslee p, he was woken up with the sensation that his arms were flailing, which immediately stopped as soon as he was awake. Once awake, he also felt completely normal in terms of his thinking and other fac ulties. He notes this happened 2 times, and he was concerned that this was a sign that he was havin g seizures. He also has been having some shooting pain in the area of his knee where the surgery wa s performed today. He states it is a sensation like electricity. He has never had seizure in the p ast. He does drink 3-4 drinks daily but has never had withdrawal symptoms. PAST MEDICAL HISTORY: 1. Diabetes. 2. Hyperlipidemia. 3. SHABNAM. 4. Hypertension. PAST SURGICAL HISTORY: 1. Includes TKA with subsequent irrigation, debridement and secondary closure as per above. 2. Multiple orthopedic surgeries. 3. Rotator cuff surgery. FAMILY HISTORY: Reviewed and noncontributory. SOCIAL HISTORY: The patient is a nonsmoker. He drinks 3-4 glasses of wine per day. REVIEW OF SYSTEMS: A 10-point review of systems obtained and negative except as per HPI. HOME MEDICATIONS: Include: 1. Oxycodone. 2. Metformin. 3. Simvastatin. 4. Xarelto. 5. Naproxen. 6. Singulair. 7. Lisinopril. 8. [place]. 9. Flonase. 10. Cholecalciferol. 11. Tylenol. ALLERGIES: No known drug allergies. PHYSICAL EXAM: VITAL SIGNS: BP 112/61, heart rate 74, respiratory rate 16, O2 sat 92% on room air, temperature is 36.8. GENERAL APPEARANCE: Well-developed/well-nourished man. He is awake and aler t, in no acute distress. EYES: Anicteric. HENT: Oropharynx clear. CARDIOVASCULAR: RRR, no MRG. PULMONARY: CTA bilaterally to anterior exam. ABDOMEN: Obese, soft, nontender. EXTREMITIES: Le ft lower extremity in brace, otherwise bilateral lower extremities without clubbing, cyanosis, or ed shauna. SKIN: Warm, dry, well perfused. NEURO/PSYCH: Oriented, appropriate, pleasant, no tremors. CLINICAL DATA: Labs reviewed. BMP unremarkable other than a glucose of 123. LFTs remarkable only for albumin of 2.6 and total protein of 4.9. Most recent hemoglobin of 8.3 and hematocrit 24.5; the y were 15.0 and 44.5 preoperatively. ASSESSMENT/PLAN: This is a 71-year-old man status post TKA with postop wound dehiscence and prosthe tic joint infection presenting with concerns of seizure. 1. Movement disorder. From description, this sounds most consistent with hypnic jerking. This onl y occurred twice and both times in the setting of nearly falling asleep. There was no postictal per iod and no other features suggestive of seizure disorder. On further discussion with the patient, h is sleep has been quite disrupted since hospitalization, and he has only gotten a couple hours of sl eep per night, possibly contributing to new development of sleep disorder. Will give Valium for hel p with both muscle spasm and hopefully to aid him in sleeping this evening. 2. Prosthetic joint infection. Being managed by ID, currently on vancomycin. Cultures grew E coli . Intraoperative cultures are not available. He is being treated empirically with a plan for at le ast 2 weeks of treatment. 3. Postoperative anemia. The patient has had a fairly significant drop in his H and H from hematoc rit 44.5 to 24.5. Will continue to trend. 4. Diabetes. He has been continued on his metformin, and, thus far, glucose has been well controll ed. 5. Hypertension. Continue on lisinopril. Will monitor renal function given his associated anemia. 6. Deep vein thrombosis prophylaxis. Patient has been on Xarelto, which will be continued. 7. Disposition. Medicine will continue to follow patient while in-house. Thank you for this consultation. Patient is new to my care. Old records reviewed, summarized as per HPI and past medical history. /[id number]/MODL
--- NOTE | 2017-05-28 13:05 | HOSPPROG ---
Hospitalist Progress Note Assessment/Plan: 71-year-old male admitted because of a left knee arthroplasty plasty with wound dehiscence. He had operative repair and irrigation and closure of the left knee , is being followed by ID on vancomycin, and we have been asked to follow because of hip neck jerking and manage his medical problems. Patient new to me today - Hip neck limb jerking: - Diabetes mellitus: Currently in good control on Glucophage - hypertension: Currently in good control on lisinopril 20 mg a day - anemia with a hemoglobin of - OSAS: -hpl Plan: PICC line for Abx; continue bp, diabetic meds, PT Subjective: no complaints. no hipic spasms. No chest pain, SOB, fever, cough, N.v.,,abdominal pain Objective: Vital Signs Temp Pulse Resp BP Pulse Ox 37.1 C 90 16 130/75 H 95 05/28/17 12:20 05/28/17 12:20 05/28/17 12:20 05/28/17 08:40 05/28/17 12:20 Laboratory Results 05/28/17 04:38 05/28/17 04:38 05/27/17 05/28/17 05/29/17 05:59 05:59 05:59 Intake Total 1750 2400 Output Total 800 1800 475 Balance 950 600 -475 Laboratory Tests 05/27/17 05/27/17 05/27/17 04:26 15:45 20:34 Hgb 8.2 L 8.3 L POC Glucose 118 H 05/27/17 05/27/17 05/28/17 21:34 23:05 04:38 Hgb 8.2 L POC Glucose 109 H 108 H 05/28/17 05/28/17 07:25 12:11 Hgb POC Glucose 105 H 130 H - Time Spent With Patient Time Spent with Patient: greater than 35 minutes Time Spent with Patient: Greater than 35 minutes spent on this patients care, greater than 50% of time spent counseling, educating, and coordinating care regarding the above mentioned plan. - Pending Discharge Pending Discharge Within 24 Hours: No Pending Discharge Within 48 Hours: No - Physical Exam Constitutional: no apparent distress Eyes: PERRL, anicteric sclera Ears, Nose, Mouth, Throat: moist mucous membranes, hearing normal Cardiovascular: regular rate and rhythym, no murmur, rub, or gallop Respiratory: no respiratory distress, no rales or rhonchi Gastrointestinal: normoactive bowel sounds, soft, non-tender abdomen, no palpable masses Genitourinary: no bladder fullness Musculoskeletal: full muscle strength, other (Left knee in brace and surgical dressing. no signs infection above) Neurologic: AAOx3, CN II-XII Intact ICD10 Worksheet Patient Problems: Problems Problem Status Onset Arthritis of right knee Acute
[2017-05-28] MEDS ORDERED: ALTEPLASE 2 MG VIAL IVP PRN (13:47)
--- NOTE | 2017-05-28 13:47 | SOAPPROG ---
SOAP Progress Note Assessment/Plan: Assessment: Plan: Subjective: states he's doing better with pain control dressing C&D with foot NVI await PICC line placement and plan for DC tomorrow Objective: Vital Signs Temp Pulse Resp BP Pulse Ox 37.1 C 90 16 130/75 H 95 05/28/17 12:20 05/28/17 12:20 05/28/17 12:20 05/28/17 08:40 05/28/17 12:20 Laboratory Results 05/28/17 04:38 05/28/17 04:38 05/27/17 05/28/17 05/29/17 05:59 05:59 05:59 Intake Total 1750 2400 Output Total 800 1800 475 Balance 950 600 -475 ICD10 Worksheet Patient Problems: Problems Problem Status Onset Arthritis of right knee Acute
--- NOTE | 2017-05-28 13:49 | PCMIDPN ---
Assessment/Plan: Assessment/Plan: * Left total knee arthroplasty wound dehiscence with penetration to joint status post incision and drainage with wound closure: Tolerating vancomycin well. No operative cultures to further guide therapy. Primary organisms of concern skin tylor. Plan continued vancomycin as outlined in initial consultation with treatment course as if prosthetic joint infection present. Place PICC line tomorrow in anticipation of outpatient antibiotic therapy. 05/28/17 13:45 Subjective: Patient with mild left knee pain. No itching or rash with vancomycin. Objective: Vital Signs Temp Pulse Resp BP Pulse Ox 37.1 C 90 16 130/75 H 95 05/28/17 12:20 05/28/17 12:20 05/28/17 12:20 05/28/17 08:40 05/28/17 12:20 Laboratory Results 05/28/17 04:38 05/28/17 04:38 05/27/17 05/28/17 05/29/17 05:59 05:59 05:59 Intake Total 1750 2400 Output Total 800 1800 475 Balance 950 600 -475 C-Reactive Protein 125.1 mg/L (<10.0) H 05/27/17 15:45 vancomycin # 1 Laboratory Tests 05/27/17 15:45 WBC 9.29 - Physical Exam General Appearance: alert, no apparent distress EENT: No thrush, No conjunctival petechiae Respiratory: lungs clear, No respiratory distress Cardiac/Chest: regular rate, rhythm Extremities: other (Left knee dressed postoperatively) Abdomen: non-tender, No distended ICD10 Worksheet Patient Problems: Problems Problem Status Onset Arthritis of right knee Acute
[2017-05-28] MEDS: ATORVASTATIN CALCIUM 10 MG TAB PO SCH (20:54)
[2017-05-29] MEDS: oxyCODONE IR 5 MG TAB PO PRN ×6 (00:48→20:25)
[2017-05-29] MEDS: VANCOMYCIN HCL/NORMAL SALINE 250 ML IV SCH ×2 (03:20→15:57)
[2017-05-29] MEDS: LR 1,000 ML IV SCH (03:20)
[2017-05-29 05:02] LABS: % IMMATURE GRANULYOCYTES 1.5 % (0.0-1.1); ABSOLUTE IMMATURE GRANULOCYTES 0.11 10^3/uL (0.00-0.10); ADD DIFF? NO; ADD MORPH? NO; ADD SCAN? NO; ATYPICAL LYMPHOCYTE FLAG 0 (0-99); FRAGMENT RBC FLAG 0 (0-99); HEMOGLOBIN 8.3 g/dL (13.7-17.5); LEFT SHIFT FLG 30 (0-99); LIPEMIA HEMOLYSIS FLAG 80 (0-99); MEAN CELL HEMOGLOBIN 31.7 pg (27.9-34.1); MEAN CELL HEMOGLOBIN CONCENTR. 33.2 g/dL (32.4-36.7); MEAN CELL VOLUME 95.4 fL (81.5-99.8); MEAN PLATELET VOLUME 9.1 fL (8.7-11.7); PLATELET CLUMPS FLAG 20 (0-99); PLATELET COUNT 266 10^3/uL (150-400); RED BLOOD CELL COUNT 2.62 10^6/uL (4.40-6.38); RED CELL DISTRIBUTION WIDTH 12.6 % (11.5-15.2)
[2017-05-29 05:18] LABS: ANION GAP 7 mEq/L (8-16); CALCIUM 8.6 mg/dL (8.5-10.4); CARBON DIOXIDE 26 mEq/l (22-31); CHLORIDE 106 mEq/L (97-110); CREATININE 0.8 mg/dL (0.7-1.3); GLOMERULAR FILTRATION RATE > 60; GLUCOSE 95 mg/dL (70-100); POTASSIUM 4.1 mEq/L (3.5-5.2); SODIUM 139 mEq/L (134-144)
[2017-05-29] MEDS: traMADol 50 MG TAB PO SCH ×4 (05:38→23:50)
[2017-05-29] MEDS: ACETAMINOPHEN 325 MG TAB PO SCH ×4 (05:38→23:50)
[2017-05-29] MEDS: metFORMIN HCL 500 MG TAB PO SCH (08:23)
[2017-05-29] MEDS: LISINOPRIL 20 MG TAB PO SCH (08:23)
[2017-05-29] MEDS: FAMOTIDINE 20 MG TAB PO SCH ×2 (08:23→20:25)
[2017-05-29] MEDS: SENNOSIDES/DOCUSATE SODIUM TAB PO SCH ×2 (08:24→20:25)
[2017-05-29] MEDS: RIVAROXABAN 10 MG TAB PO SCH (08:24)
--- NOTE | 2017-05-29 15:26 | HOSPPROG ---
Hospitalist Progress Note Assessment/Plan: 71-year-old male admitted because of a left knee arthroplasty plasty with wound dehiscence. He had operative repair and irrigation and closure of the left knee , is being followed by ID on vancomycin, and we have been asked to follow because of hip neck jerking and manage his medical problems. - Hip neck limb jerking: none today. resolved -left knee irrigation, IV antibiotics. Overall knee looks good and OK for discharge when arrangement made for home IV antibiotic and training. Receiving vancomycin, level today. No cultures to guide antibiotic therapy from left knee irrigation. - Diabetes mellitus: Currently in good control on Glucophage - hypertension: Currently in good control on lisinopril 20 mg a day - anemia with a hemoglobin of Hgb=8.4 -dvt propylactic on xarelto - OSAS: uses CPAP -hpl Plan: PICC line for Abx; continue bp, diabetic meds, PT Home when home antibiotics and training completed Subjective: reports has good pain control Objective: Vital Signs Temp Pulse Resp BP Pulse Ox 36.9 C 79 24 H 139/75 H 92 05/29/17 11:30 05/29/17 11:30 05/29/17 11:30 05/29/17 11:30 05/29/17 11:30 Laboratory Results 05/29/17 04:39 05/29/17 04:39 05/28/17 05/29/17 05/30/17 05:59 05:59 05:59 Intake Total 2400 1100 Output Total 1800 475 375 Balance 600 625 -375 - Time Spent With Patient Time Spent with Patient: greater than 35 minutes Time Spent with Patient: Greater than 35 minutes spent on this patients care, greater than 50% of time spent counseling, educating, and coordinating care regarding the above mentioned plan. - Pending Discharge Pending Discharge Within 24 Hours: Yes Pending Discharge Date: 05/30/17 Pending Discharge Time: 11:00 - Physical Exam Constitutional: no apparent distress Eyes: PERRL Ears, Nose, Mouth, Throat: moist mucous membranes Cardiovascular: regular rate and rhythym, no murmur, rub, or gallop Respiratory: no respiratory distress, no rales or rhonchi, clear to auscultation Gastrointestinal: normoactive bowel sounds, soft, non-tender abdomen, no palpable masses Genitourinary: no bladder fullness Skin: warm Musculoskeletal: full muscle strength, other (left knee in a brace and slightly tender to palpation. no swelling, calf normal. Left arm with PICC which has had some bleeding. Good hemostasis now. No edema or SC swelling or ecchymosis. p[atient on Xarelto for DVT) ICD10 Worksheet Patient Problems: Problems Problem Status Onset Arthritis of right knee Acute
--- NOTE | 2017-05-29 16:25 | PCMIDPN ---
Assessment/Plan: Assessment/Plan: * Left total knee arthroplasty wound dehiscence with penetration to joint status post incision and drainage with wound closure: Tolerating vancomycin well. PICC line placed earlier today. Suspect will gradually accumulate vancomycin so do not plan to adjust dosing. If necessary, can adjust as outpatient with additional trough values. Will adjust timing to 8:00 p.m. and 8:00 a.m.for patient convenience with dosing. Anticipate 6 weeks of therapy with weekly CBC and CMP in twice weekly vancomycin trough /creatinine. Will arrange for follow-up in my office next week. 05/29/17 16:23 Subjective: Patient with increased knee pain. Working more with physical therapy. Objective: Vital Signs Temp Pulse Resp BP Pulse Ox 36.9 C 79 24 H 139/75 H 92 05/29/17 11:30 05/29/17 11:30 05/29/17 11:30 05/29/17 11:30 05/29/17 11:30 Laboratory Results 05/29/17 04:39 05/29/17 04:39 05/28/17 05/29/17 05/30/17 05:59 05:59 05:59 Intake Total 2400 1100 Output Total 1800 475 375 Balance 600 625 -375 C-Reactive Protein 125.1 mg/L (<10.0) H 05/27/17 15:45 Vancomycin # 2 Laboratory Tests 05/29/17 15:15 Vancomycin Trough 6.3 - Physical Exam General Appearance: alert, no apparent distress EENT: pharynx normal, No scleral icterus, No thrush Respiratory: lungs clear, No respiratory distress Cardiac/Chest: regular rate, rhythm Extremities: other (1+ edema above operative dressing) Abdomen: non-tender, No distended ICD10 Worksheet Patient Problems: Problems Problem Status Onset Arthritis of right knee Acute
--- NOTE | 2017-05-29 16:29 | PDIAF ---
- Diagnosis Diagnosis: left total knee arthroplasty wound dehiscence Code Status: Full Code - Medication Management Discharge Medications: Medications to Continue on Transfer Cholecalciferol Vit D3 [Vitamin D3 (*)] 1,000 units PO DAILY 04/28/17 [Last Taken 1 Week Ago] Fluticasone Nasal [Flonase Nasal [place]] 1 - 2 sprays NASAL DAILY PRN 04/28/17 [ Last Taken 1 Week Ago] Herbals/Supplements -Info Only 1 ea PO DAILY 04/28/17 [Last Taken 1 Week Ago] Lisinopril [Zestril 20 mg (*)] 20 mg PO DAILY 04/28/17 [Last Taken 05/26/17 08: 00] Montelukast Sodium [Singulair 10 mg (*)] 10 mg PO HS PRN 04/28/17 [Last Taken ] Simvastatin [Zocor] 20 mg PO HS 04/28/17 [Last Taken 05/25/17 20:00] metFORMIN HCL [Glucophage 500 mg (*)] 500 mg PO DAILY 04/28/17 [Last Taken 05/26 08:00] Hydrocodone/APAP 5/325 [[place] 5/325 (*)] 1 tab PO HS 05/05/17 [Last Taken ] Naproxen Sodium [Aleve 220 MG (*)] 220 mg PO DAILY PRN 05/05/17 [Last Taken 20:00] oxyCODONE IR [Oxycodone Ir (*)] 5 - 10 mg PO Q4HRS PRN 05/23/17 [Last Taken 11:00] Acetaminophen [Tylenol 325mg (*)] 650 mg PO Q6HRS #0 tab 05/24/17 [Last Taken 01:00] Rivaroxaban [Xarelto 10mg (*)] 10 mg PO DAILY #0 tab 05/24/17 [Last Taken 08:00] [facility] Antibiotics: vancomycin 1 g IV q.12 hours [facility] Antibiotic Stop Date: 07/08/17 Discharge Medications: Refer to the Discharge Home Medication list for PRN reason. PICC Care - Routine: Yes - Orders Services needed: Home Longterm Care Face to Face: I certify that this patient was under my care and that I had the required [id number] encounter meeting the encounter requirements on the discharge day. My findings support the fact that the patient is homebound as defined in CMS Chapter 7 Medicare Benefits Manual 30.1.1, The condition of the patient is such that there exists a normal inability to leave home and consequently, leaving home would require a considerable and taxing effort. - Labs/Radiology CBC Date: 06/01/17 CMP Date: 06/01/17 Creatinine Date: 06/05/17 ( weekly Q Monday) Vanco Trough Date and Time: weekly Q Monday, Q - Follow Up Care Current Providers and Referrals: Sandra Parson MD [Primary Care Provider] - Juan Luis Thorne MD [Medical Doctor] - 06/08/17 11:00 am
--- NOTE | 2017-05-29 18:21 | SOAPPROG ---
SOAP Progress Note Assessment/Plan: Assessment: Plan: Subjective: states he's ready for home dressing C&D with foot NVI PICC line in place plan for DC - possibly tomorrow due to issue with home Abx Objective: Vital Signs Temp Pulse Resp BP Pulse Ox 37.3 C 81 20 129/68 H 93 05/29/17 16:00 05/29/17 16:00 05/29/17 16:00 05/29/17 16:00 05/29/17 16:00 Laboratory Results 05/29/17 04:39 05/29/17 04:39 05/28/17 05/29/17 05/30/17 05:59 05:59 05:59 Intake Total 2400 1100 250 Output Total 1800 475 375 Balance 600 280 -125 ICD10 Worksheet Patient Problems: Problems Problem Status Onset Arthritis of right knee Acute
[2017-05-29] MEDS: ATORVASTATIN CALCIUM 10 MG TAB PO SCH (20:25)
[2017-05-30 05:15] LABS: % IMMATURE GRANULYOCYTES 1.5 % (0.0-1.1); ABSOLUTE IMMATURE GRANULOCYTES 0.13 10^3/uL (0.00-0.10); ABSOLUTE NRBC COUNT 0.02 10^3/uL (0-0.01); ADD DIFF? NO; ADD MORPH? NO; ADD SCAN? NO; ATYPICAL LYMPHOCYTE FLAG 10 (0-99); FRAGMENT RBC FLAG 0 (0-99); HEMATOCRIT 25.3 % (40.0-51.0); HEMOGLOBIN 8.5 g/dL (13.7-17.5); LEFT SHIFT FLG 10 (0-99); LIPEMIA HEMOLYSIS FLAG 80 (0-99); MEAN CELL HEMOGLOBIN CONCENTR. 33.6 g/dL (32.4-36.7); MEAN CELL VOLUME 95.1 fL (81.5-99.8); NRBC-AUTO% 0.2 % (0.0-0.2); PLATELET CLUMPS FLAG 10 (0-99); PLATELET COUNT 325 10^3/uL (150-400); RED BLOOD CELL COUNT 2.66 10^6/uL (4.40-6.38); RED CELL DISTRIBUTION WIDTH 12.8 % (11.5-15.2)
[2017-05-30 05:27] VITALS: PULSE 78; TEMP 98.8; O2SAT 91
[2017-05-30 05:31] LABS: ANION GAP 10 mEq/L (8-16); CALCIUM 8.7 mg/dL (8.5-10.4); CARBON DIOXIDE 22 mEq/l (22-31); CHLORIDE 106 mEq/L (97-110); CREATININE 0.7 mg/dL (0.7-1.3); GLOMERULAR FILTRATION RATE > 60; GLUCOSE 91 mg/dL (70-100); POTASSIUM 3.8 mEq/L (3.5-5.2); SODIUM 138 mEq/L (134-144)
[2017-05-30] MEDS: traMADol 50 MG TAB PO SCH (05:57)
[2017-05-30] MEDS: ACETAMINOPHEN 325 MG TAB PO SCH (05:57)
[2017-05-30] MEDS: oxyCODONE IR 5 MG TAB PO PRN ×2 (05:57→08:09)
[2017-05-30 07:57] VITALS: BP 143/78; RESP 18
[2017-05-30] MEDS ORDERED: VANCOMYCIN HCL/NORMAL SALINE 250 ML IV SCH (08:00)
[2017-05-30] MEDS: LISINOPRIL 20 MG TAB PO SCH (08:09)
[2017-05-30] MEDS: metFORMIN HCL 500 MG TAB PO SCH (08:09)
[2017-05-30] MEDS: SENNOSIDES/DOCUSATE SODIUM TAB PO SCH (08:09)
[2017-05-30] MEDS: RIVAROXABAN 10 MG TAB PO SCH (08:10)
[2017-05-30] MEDS: FAMOTIDINE 20 MG TAB PO SCH (08:10)
== END 2017-05-30 11:20 | disposition home health service (06) | DRG 908 ==
LOC: FSGY 11:51 → INTOOBSV 15:40 → F3N 15:40 → OBSVTOIN 05-27 15:08
PROVIDERS: ADMIT Orthopaedic Surgery; ATTEND Orthopaedic Surgery
PROC: 0SCD0ZZ Extirpation of Matter from Left Knee Joint, Open Approach (ICD-10-PCS; principal; 2017-05-27)
PROC: 0S9D0ZZ Drainage of Left Knee Joint, Open Approach (ICD-10-PCS; principal; 2017-05-27)
PROC: 3E1U38Z Irrigation of Joints using Irrigating Substance, Percutaneous Approach (ICD-10-PCS; principal; 2017-05-27)
PROC: 02HV33Z Insertion of Infusion Device into Superior Vena Cava, Percutaneous Approach (ICD-10-PCS; 2017-05-28)
DX: T81.31XA Disruption of external operation (surgical) wound, not elsewhere classified, initial encounter (principal); T84.54XA Infection and inflammatory reaction due to internal left knee prosthesis, initial encounter; D62 Acute posthemorrhagic anemia; G25.3 Myoclonus; E11.9 Type 2 diabetes mellitus without complications; E78.00 Pure hypercholesterolemia, unspecified; G47.33 Obstructive sleep apnea (adult) (pediatric); I10 Essential (primary) hypertension; Z96.652 Presence of left artificial knee joint
CPT/HCPCS: 97116-GP; 97161-GP; 97165-GO; C1751; G8978-GP-CI; G8979-GP-CI; G8980-GP-CI; G8987-GO-CI; G8988-GO-CI; G8989-GO-CI; J0690; J2001; J2704; J2765; J3010; J3370

== ENCOUNTER 2017-06-19 20:19 | Inpatient (IN) | payer OTHER ==
--- NOTE | 2017-06-19 20:37 | CPEKG ---
Heart Rate: 94 RR Interval: 638 P-R Interval: 240 QRSD Interval: 78 QT Interval: 324 QTC Interval: 406 P [place]: -41 QRS [place]: -11 T Wave [place]: -2 EKG Severity - ABNORMAL ECG - EKG Impression: SINUS RHYTHM EKG Impression: FIRST DEGREE AV BLOCK EKG Impression: PROBABLE INFERIOR INFARCT, AGE INDETERMINATE EKG Impression: CONSIDER ANTERIOR INFARCT Electronically Signed By: Joni Baxter 19-Jun-2017 20:41:26
--- NOTE | 2017-06-19 20:38 | EDPHY ---
H & P Time Seen by Provider: 06/19/17 20:30 HPI/ROS: CHIEF COMPLAINT: Elevated creatinine HISTORY OF PRESENT ILLNESS: 71-year-old man had left total knee replacement on May 23 and then a 2nd surgery on May 26. His wound dehisced resulting in the second surgery, and he got PICC line and extended course of IV vancomycin. He was sent to the emergency department tonight because his creatinine was elevated and his vancomycin level was elevated. Dr. Juan Luis Thorne from Infectious Disease called me prior to arrival. Patient still has some discomfort in his left knee but no other symptoms. Hearing is unchanged. Still continues to urinate without urinary symptoms. No fever or chills. REVIEW OF SYSTEMS: Eye: no change in vision ENT: Mild sore throat Cardiac: no chest pain or syncope Pulmonary: no cough or SOB Abdomen: no vomiting, diarrhea, abdominal pain Musculoskeletal: no back pain Skin: Healing wound left knee, left knee symptoms unchanged over the past couple of weeks. Neuro: no headache Constitutional: no fever : no urinary symptoms A comprehensive 10 point review of systems is otherwise negative aside from elements mentioned in the history of present illness. PAST MEDICAL HISTORY: Left total knee arthroplasty, hypertension, diabetes, high cholesterol. Social history: , here with his Initial temperature noted 38.3. General Appearance: Alert and conversant, cooperative. Eyes: No scleral icterus. ENT, Mouth: Normal mucous membranes. Normal pharynx, no trismus. Respiratory: Normal respiratory effort, breath sounds equal, lungs are clear to auscultation. Cardiovascular: Regular rate and rhythm. No murmur. Gastrointestinal: Abdomen is soft and non tender. Neurological: Alert and oriented x3. Normally conversant. Face symmetric, normal movement and sensation in all extremities. Skin: Healing left knee midline incision. No surrounding redness and no drainage. Not hot to the touch. Picc line site clean dry intact. Musculoskeletal: Left knee immobilizer hinged brace. No left leg tenderness to palpation, compartment soft. Psychiatric: Not agitated. Emergency Department course/MDM: Blood cultures, lactate, chest x-ray and urinalysis. EKG noted as showing inferior Q-waves and late anterior RS transition, the patient says that he has a chronically abnormal EKG but no history of coronary disease. 2054: I-STAT creatinine is 5.4, potassium 4.4. 2107: Discussed with Hero, hospitalist will admit, chest x-ray personally reviewed and interpreted as negative for pneumonia. 2124: Discussed with Dr. Thorne, without documented obvious source of new infection and no change in knee symptoms, do not give any additional antibiotics now. UA and chest xray negative for UTI or pneumonia. Smoking Status: Never smoked Constitutional: Initial Vital Signs Temperature (C) 38.3 C 06/19/17 20:25 Heart Rate 92 06/19/17 20:25 Respiratory Rate 16 06/19/17 20:25 Blood Pressure 135/79 H 06/19/17 20:25 O2 Sat (%) 94 06/19/17 20:25 O2 Delivery Mode Room Air Allergies/Adverse Reactions: No Known Allergies Allergy (Verified 06/19/17 21:24) Home Medications: Medication Instructions Recorded Montelukast Sodium [Singulair 10 10 mg PO HS PRN 04/28/17 mg (*)] Simvastatin [Zocor] 20 mg PO HS 04/28/17 metFORMIN HCL [Glucophage 500 mg 500 mg PO DAILY 04/28/17 (*)] oxyCODONE IR [Oxycodone Ir (*)] 5 - 10 mg PO Q4HRS PRN 05/23/17 Ibuprofen [Motrin (*)] 200 mg PO Q4-6PRN PRN 06/19/17 Lisinopril [Zestril 30 mg] 30 mg PO DAILY 06/19/17 Vancomycin 1 gm/Dextrose 1 gm IV DAILY 06/19/17 [Vancomycin 1 gm (Premix)] Medical Decision Making - Diagnostics EKG Interpretation: 12-lead EKG interpreted by me; official reading is in trace master. My interpretation is sinus rhythm with first-degree AV block, inferior Q-waves, late anterior RS transition. Imaging Results: Imaging Impressions Chest X-Ray 06/19/17 20:40 Impression: 1. No active cardiopulmonary disease seen. Abdomen/Pelvis Ultrasound 06/19/17 20:55 Impression: 1. Normal-appearing kidneys. No significant mass or hydronephrosis. Differential Diagnosis: Differential for fever considered including but not limited to UTI, drug reaction, line infection, pneumonia, joint infection. - Data Points Laboratory Results: 06/19/17 06/19/17 20:53 20:45 POC Hgb 11.2 gm/dL L gm/dL (13.7-17.5) POC Hct 33 % L % (40-51) VBG Lactic Acid 0.8 mmol/L mmol/L (0.7-2.1) POC Sodium 128 mEq/L L mEq/L (134-144) POC Potassium 4.4 mEq/L mEq/L (3.3-5.0) POC Chloride 97 mEq/L mEq/L (97-110) POC BUN 56 mg/dL H mg/dL (7-23) POC Creatinine 5.4 mg/dL H mg/dL (0.7-1.3) POC Glucose 150 mg/dL H mg/dL (70-100) Medications Given: Alteplase, Recombinant (Cathflo Activase) 2 mg IVP PRN PRN PRN Reason: Per PICC line policy Stop: 12/17/17 01:30 Last Admin: 06/20/17 02:32 Dose: 2 mg Heparin Sodium (Porcine) (Heparin Sc Injection) 5,000 unit SC Q8 DUSTIN Stop: 12/16/17 21:59 Last Admin: 06/20/17 06:14 Dose: 5,000 unit Sodium Chloride (Ns) 1,000 mls @ 125 mls/hr IV CONT DUSTIN Stop: 12/16/17 21:59 Last Admin: 06/19/17 23:30 Dose: 1,000 mls Oxycodone HCl (Oxycodone Ir) 5 - 10 mg PO Q4HRS PRN PRN Reason: Pain, Severe Able to Take PO Stop: 06/30/17 01:29 Last Admin: 06/20/17 02:32 Dose: 5 mg Discontinued Medications Oxycodone HCl (Oxycodone Ir) 5 mg PO EDNOW ONE Stop: 06/19/17 22:30 Last Admin: 06/19/17 22:35 Dose: 5 mg Point of Care Test Results: 06/19/17 20:45 POC Sodium 128 L POC Potassium 4.4 POC Chloride 97 POC BUN 56 H POC Creatinine 5.4 H POC Glucose 150 H Departure - Departure Disposition: [facility] Inpatient Acute Clinical Impression: Hyponatremia Acute renal failure Qualifiers: Acute renal failure type: unspecified Qualified Code(s): N17.9 - Acute kidney failure, unspecified Fever Qualifiers: Fever type: unspecified Qualified Code(s): R50.9 - Fever, unspecified Condition: Good
[2017-06-19 21:22] LABS: COLOR YELLOW; LEUKOCYTE ESTERASE,URINE NEGATIVE (NEGATIVE); NITRITE,URINE NEGATIVE (NEGATIVE)
[2017-06-19 21:33] LABS: % IMMATURE GRANULYOCYTES 0.3 % (0.0-1.1); ABSOLUTE IMMATURE GRANULOCYTES 0.02 10^3/uL (0.00-0.10); ADD DIFF? NO; ADD MORPH? NO; ADD SCAN? NO; ATYPICAL LYMPHOCYTE FLAG 50 (0-99); FRAGMENT RBC FLAG 0 (0-99); HEMATOCRIT 30.1 % (40.0-51.0); LEFT SHIFT FLG 0 (0-99); LIPEMIA HEMOLYSIS FLAG 80 (0-99); MEAN CELL HEMOGLOBIN 30.8 pg (27.9-34.1); MEAN CELL HEMOGLOBIN CONCENTR. 33.2 g/dL (32.4-36.7); MEAN CELL VOLUME 92.6 fL (81.5-99.8); MEAN PLATELET VOLUME 9.6 fL (8.7-11.7); PLATELET CLUMPS FLAG 0 (0-99); PLATELET COUNT 182 10^3/uL (150-400); RED BLOOD CELL COUNT 3.25 10^6/uL (4.40-6.38); RED CELL DISTRIBUTION WIDTH 13.4 % (11.5-15.2)
[2017-06-19] MEDS ORDERED: ONDANSETRON 4 MG/2 ML VIAL IVP PRN (21:38)
[2017-06-19] MEDS ORDERED: ONDANSETRON DISINTEGRATING 4 MG TAB PO PRN (21:38)
[2017-06-19 21:44] LABS: ANION GAP 14 mEq/L (8-16); BILIRUBIN,TOTAL 0.7 mg/dL (0.1-1.4); CALCIUM 8.5 mg/dL (8.5-10.4); CARBON DIOXIDE 17 mEq/l (22-31); CHLORIDE 95 mEq/L (97-110); CREATININE 4.9 mg/dL (0.7-1.3); GLOMERULAR FILTRATION RATE 12; GLUCOSE 130 mg/dL (70-100); POTASSIUM 5.1 mEq/L (3.5-5.2); SODIUM 126 mEq/L (134-144); SPECIMEN HEMOLYSIS 117
[2017-06-19] MEDS ORDERED: MONTELUKAST SODIUM 10 MG TAB PO PRN (21:50)
[2017-06-19 21:56] LABS: TROPONIN I < 0.012 ng/mL (0.000-0.034)
[2017-06-19 21:59] LABS: INR 1.21 (0.83-1.16); PROTIME(PATIENT) 15.3 SEC (12.0-15.0)
[2017-06-19 22:00] LABS: APTT 28.3 SEC (23.0-38.0)
[2017-06-19] MEDS ORDERED: oxyCODONE IR 5 MG TAB PO ONE (22:29)
--- NOTE | 2017-06-19 22:42 | GHP ---
[f rep st] HISTORY AND PHYSICAL DATE OF ADMISSION: 06/19/2017 CHIEF COMPLAINT: OPAL, vancomycin toxicity. HISTORY OF PRESENT ILLNESS: A 71-year-old male with history of hypertension, diabetes, who underwent left TKA 05/23/[address] Hernandez. A few days into his hospitalization was out of bed, knees buckled and incision dehisced. Underwent repair and I&D 05/26/2017. He had significant bleeding from his incision site after surgery. During his recent hospital stay he began antibiotics for a prosthetic joint infection and discharged home on May 30 with PICC line and vancomycin. He has been followed by Dr. Thorne since [place]. Recent labs on 06/15 showed a Cr 1.09 and Vanco trough 16.5. Labs today: vancomycin level 63 and a creatinine 5.2. He did feel feverish today. Denies cough, N/V/D, or SOB. Decreased appetite and PO intake. No difficulty urinating. Has been taking 1-2 Advil 200 mg for several weeks. REVIEW OF SYSTEMS: I completed a 10-point review of systems, negative except as noted in HPI. PAST MEDICAL HISTORY: Hypertension, diabetes, hyperlipidemia. PAST SURGICAL HISTORY: Left rotator cuff, prior knee scope. SOCIAL HISTORY: Lives in [place] with his . Drinks a couple glasses of wine daily. No tobacco or illicit's. FAMILY HISTORY: Father with diabetes, stroke, heart attack. Mother with lung cancer. HOME MEDICATIONS: Vancomycin 1 g daily, ibuprofen 200 mg p.o. q.6 hours p.r.n. , lisinopril 30 mg daily, Zocor, Singulair, oxycodone 5-10 q.4 hours p.r.n., metformin 500 mg daily. PHYSICAL EXAM: VITAL SIGNS: Temperature 38.3, blood pressure 135/79, heart rate is in the 70s, respirations 16, 94% on room air. GENERAL: Well-appearing male in no acute distress. HEENT: PERRLA. Mildly dry mucous membranes. CV: Regular rate and rhythm. No murmurs, gallops, or rubs. LUNGS: Clear to auscultation bilaterally. ABDOMEN: Soft, nontender, nondistended. Positive bowel sounds. : No suprapubic tenderness. MUSCULOSKELETAL: 5/5 upper lower extremity strength. Left knee surgical incision healing with some scabbed lesions and mild erythema that does not appear to be cellulitic. Has full range of motion. No lower extremity edema. NEURO: 2 through 12 intact. PSYCH: Alert and oriented x3. LABORATORY DATA: WBC 6, hemoglobin 10, hematocrit 30, platelets 182. Coag's are pending. Lactate 0.8, sodium 126, potassium 5.1, carbon chloride 95, carbon dioxide 17, BUN 61, creatinine 4.9, glucose 130. UA is negative. Vancomycin trough was 63 per outside lab reports. EKG personally reviewed by me, sinus rhythm, first-degree block. No old to compare. Chest x-ray personally reviewed by me, no effusion or opacity. ASSESSMENT AND PLAN: 1. Acute kidney injury: multifactorial with decreased p.o. intake, Advil use and concomitantly taking lisinopril. He had normal kidney function 4 days ago. Mildly dry on exam. No electrolyte abnormalities today. Monitor on telemetry and repeat labs in the morning and gently hydrate. Renal ultrasound is pending. 2. Vancomycin toxicity: secondary to acute kidney injury as stated above. Will continue to monitor closely. 3. Fever: suspect due to abx. No infectious symptoms. UA, CXR normal. Surgical incision healing well. Blood cultures pending. 4. Diabetes. Hold metformin sliding scale insulin here. 5. Hypertension. Hold lisinopril with acute kidney injury. 6. Hyperlipidemia. Continue statin. 7. Deep venous thrombosis prophylaxis, medium risk. Subcu heparin. DIET: Renal. DISPOSITION: Patient warrants observation admission given OPAL and vancomycin toxicity requiring telemetry, IV fluids, and serial labs. /[id number]/MODL MTDD
[2017-06-19] MEDS: NS 1,000 ML IV SCH (23:30)
[2017-06-19] MEDS: HEPARIN 5,000 UNIT/0.5 ML SYR SC SCH (23:36)
[2017-06-20] MEDS ORDERED: D50W 25 GM/50 ML SYR IVP PRN (01:31)
[2017-06-20] MEDS ORDERED: ALTEPLASE 2 MG VIAL IVP PRN (01:31)
[2017-06-20] MEDS: oxyCODONE IR 5 MG TAB PO PRN ×3 (02:32→14:55)
[2017-06-20 03:54] LABS: % IMMATURE GRANULYOCYTES 0.2 % (0.0-1.1); ABSOLUTE IMMATURE GRANULOCYTES 0.01 10^3/uL (0.00-0.10); ADD DIFF? NO; ADD MORPH? NO; ADD SCAN? NO; ATYPICAL LYMPHOCYTE FLAG 60 (0-99); FRAGMENT RBC FLAG 0 (0-99); HEMATOCRIT 30.7 % (40.0-51.0); HEMOGLOBIN 10.3 g/dL (13.7-17.5); LEFT SHIFT FLG 0 (0-99); LIPEMIA HEMOLYSIS FLAG 80 (0-99); MEAN CELL HEMOGLOBIN 30.7 pg (27.9-34.1); MEAN CELL HEMOGLOBIN CONCENTR. 33.6 g/dL (32.4-36.7); MEAN CELL VOLUME 91.4 fL (81.5-99.8); MEAN PLATELET VOLUME 9.7 fL (8.7-11.7); PLATELET CLUMPS FLAG 0 (0-99); PLATELET COUNT 141 10^3/uL (150-400); RED BLOOD CELL COUNT 3.36 10^6/uL (4.40-6.38); RED CELL DISTRIBUTION WIDTH 13.5 % (11.5-15.2)
[2017-06-20 04:03] LABS: INR 1.27 (0.83-1.16); PROTIME(PATIENT) 15.9 SEC (12.0-15.0)
[2017-06-20 04:16] LABS: ANION GAP 11 mEq/L (8-16); CALCIUM 8.2 mg/dL (8.5-10.4); CARBON DIOXIDE 18 mEq/l (22-31); CHLORIDE 99 mEq/L (97-110); CREATININE 5.2 mg/dL (0.7-1.3); GLOMERULAR FILTRATION RATE 11; GLUCOSE 102 mg/dL (70-100); POTASSIUM 4.1 mEq/L (3.5-5.2); SODIUM 128 mEq/L (134-144)
[2017-06-20] MEDS: HEPARIN 5,000 UNIT/0.5 ML SYR SC SCH ×3 (06:14→21:22)
[2017-06-20] MEDS: NS 1,000 ML IV SCH ×2 (08:23→14:58)
--- NOTE | 2017-06-20 08:48 | PCMIDPN ---
Assessment/Plan: Assessment/Plan: * Acute nephrotoxicity likely associated with vancomycin nephrotoxicity: Also has low-grade temperature with mild eosinophilia raising consideration of acute interstitial nephritis. Will obtain liver function tests as DRESS syndrome also of consideration although I think less likely. Creatinine stable overnight. Will obtain nephrology consultation for further assistance. Continue to follow creatinine and electrolytes. Obtain urine for eosinophils to assess for AIN. * Left total knee arthroplasty wound dehiscence with penetration to joint: Treating as if prosthetic joint infection given penetration to joint. Has completed approximately 3 weeks of vancomycin therapy. Anticipate transitioning to oral therapy such as doxycycline to complete remaining 3 weeks given toxicity associated with vancomycin as outlined above. * Fever: Likely associated with drug toxicity rather than new infectious process. Blood cultures are pending. * Rash: Faint, subtle rash over chest wall and left thigh which may be vancomycin related. Rash over back more consistent with folliculitis and without interval change. 06/20/17 08:38 Subjective: Patient has been treated with approximately 3 weeks of vancomycin for total knee arthroplasty wound dehiscence with penetration to joint. Yesterday, had acute rise in creatinine to 5.2 with vancomycin level of 63.9. Serum creatinine on 06/15/2017 was 1.09 with vancomycin trough of 16.5. Patient notes low-grade temperature over last 48 hours. No new rash. Knee gradually improving without drainage. Based on acute renal failure, I advised hospitalization last p.m. for further assessment and monitoring. Renal ultrasound performed yesterday shows no evidence of hydronephrosis. Urinalysis that was performed shows normal findings. Patient continues to make urine without any change in urine output. Was taking ibuprofen 200-400 mg orally daily. Objective: Vital Signs Temp Pulse Resp BP Pulse Ox 37.6 C 79 12 105/46 L 96 06/20/17 07:03 06/20/17 07:03 06/20/17 07:03 06/20/17 07:03 06/20/17 07:03 Laboratory Results 06/20/17 03:20 06/20/17 03:20 06/19/17 06/20/17 06/21/17 05:59 05:59 05:59 Intake Total 750 317 Output Total 300 Balance 450 317 Renal ultrasound without hydronephrosis Urinalysis negative Blood cultures x2 pending Absolute eosinophil count 520 - Physical Exam General Appearance: alert, no apparent distress EENT: dry mucous membranes, No scleral icterus, No conjunctival petechiae Respiratory: lungs clear, No respiratory distress Cardiac/Chest: regular rate, rhythm, No systolic murmur Extremities: inflammation (Left knee incision intact without erythema or drainage; some scabbing overlying incision line; mild warmth present) Abdomen: non-tender, No distended Skin: rash (Follicular rash over back which is unchanged; faint macular rash over chest wall and left thigh) ICD10 Worksheet Patient Problems: Problems Problem Status Onset Acute renal failure Acute Fever Acute Hyponatremia Acute Arthritis of right knee Acute
[2017-06-20] MEDS: INSULIN LISPRO 100 UNIT/ML SC SCH ×3 (08:50→17:23)
--- NOTE | 2017-06-20 08:52 | HOSPPROG ---
Hospitalist Progress Note Assessment/Plan: The patient is a 71-year-old male with history of hypertension diabetes who underwent a TKA in April 2017. During his recent hospitalization he was treated for prostatic joint infection and discharged home. Today is my first encounter with the patient/chart reviewed. Reviewed his care with Dr Thorne. * acute kidney injury Creatinine is 5.2 Nephrology to see him today Ultrasound shows normal appearing kidneys without hydronephrosis Will avoid any nephrotoxic medications continue normal saline * vancomycin toxicity likely causing the above *fever likely due to drug toxicity blood cx pending * diabetes Metformin on hold *Left total knee arthroplasty wound dehiscence. s/p 3 weeks of treatment w vanco likely to start on oral therapy per ID * hypertension Lisinopril on hold in the setting of acute renal failure * hyperlipidemia statin *DVT prophylaxis: heparin sq Subjective: Pietro has been feeling more tired than usual, less of an appetite. Objective: Vital Signs Temp Pulse Resp BP Pulse Ox 37.6 C 79 12 105/46 L 96 06/20/17 07:03 06/20/17 07:03 06/20/17 07:03 06/20/17 07:03 06/20/17 07:03 Laboratory Results 06/20/17 03:20 06/20/17 03:20 06/19/17 06/20/17 06/21/17 05:59 05:59 05:59 Intake Total 750 317 Output Total 300 Balance 450 317 PT 15.9 SEC (12.0-15.0) H 06/20/17 03:20 INR 1.27 (0.83-1.16) H 06/20/17 03:20 - Physical Exam Constitutional: no apparent distress, not in pain Eyes: PERRL Ears, Nose, Mouth, Throat: hearing normal Cardiovascular: regular rate and rhythym, no murmur, rub, or gallop Respiratory: no respiratory distress Gastrointestinal: normoactive bowel sounds Skin: warm, other (left knee area with some swelling and redness) Musculoskeletal: generalized weakness Neurologic: AAOx3 Psychiatric: interacting appropriately ICD10 Worksheet Patient Problems: Problems Problem Status Onset Acute renal failure Acute Fever Acute Hyponatremia Acute Arthritis of right knee Acute
--- NOTE | 2017-06-20 10:42 | SOAPPROG ---
SOAP Progress Note Assessment/Plan: Assessment:Plan: OPAL-appears to be due to vanco toxicity -this had been closely monitored with vanco levels right at 15 with a baseline creatinine of 1 -sudden rise in both vanco level (63) and creatinine (5.2) without any other obvious insults -patient had been using 1-2 OTC ibuprofen 200mg per day -he had been on metformin and lisinopril -while his PO intake had been low, he had no N/V/D to result in volume loss or dehydration. -normotensive with normal HR's on presentation to the ED and since being admitted to the hospital -he had been receiving IVF -urinalysis without blood or protein, which make an inflammatory/nephritic process unlikely -likely has tubular injury related to vanco -renal ultrasound with normal-sized, normal-appearing kidneys -he remains non-oliguric with no significant electrolytes abnormalities, which would be typical of this injury -has has no indications for dialysis, and would be unlikely to need this sort of intervention (although it would help clear vanco faster) -vanco levels already are falling (63 down to 45) -I would expect creatinine levels to fall once the vanco is at less toxic levels 06/20/17 10:43 Subjective: L Knee pain Objective: Vital Signs Temp Pulse Resp BP Pulse Ox 37.6 C 79 12 105/46 L 96 06/20/17 07:03 06/20/17 07:03 06/20/17 07:03 06/20/17 07:03 06/20/17 07:03 Laboratory Results 06/20/17 03:20 06/20/17 03:20 06/19/17 06/20/17 06/21/17 05:59 05:59 05:59 Intake Total 750 317 Output Total 300 Balance 450 317 PT 15.9 SEC (12.0-15.0) H 06/20/17 03:20 INR 1.27 (0.83-1.16) H 06/20/17 03:20 Physical Exam - Physical Exam General Appearance: mild distress EENT: normal ENT inspection Neck: normal inspection, No carotid bruit, No lymphadenopathy (R), No lymphadenopathy (L) Respiratory: lungs clear, normal breath sounds, No respiratory distress Cardiac/Chest: regular rate, rhythm, No diastolic murmur, No systolic murmur Abdomen: normal bowel sounds, non-tender, soft, No hepatomegaly, No splenomegaly Back: Normal inspection Skin: normal color, warm/dry Extremities: swelling (L knee, post-surgical changes) Neuro/Psych: no motor/sensory deficits, alert, normal mood/affect ICD10 Worksheet Patient Problems: Problems Problem Status Onset Acute renal failure Acute Fever Acute Hyponatremia Acute Arthritis of right knee Acute
[2017-06-20 11:34] LABS: EOSMR EOSINOPHILS FEW EOS (NO EOS SEEN); EOSMR EPITHELIAL CELLS MANY EPITH CELLS
[2017-06-20 11:37] LABS: EOSMR PMNS FEW PMN CELLS; EOSMR RBCS NO RBCS SEEN
--- NOTE | 2017-06-20 11:53 | GCON ---
[f rep st] CONSULTATION NEPHROLOGY CONSULTATION DATE OF CONSULTATION: 06/20/2017 REASON FOR CONSULTATION: Acute kidney injury. ASSESSMENT: 1. Vancomycin toxicity. 2. Mild hyponatremia. 3. Total knee arthroplasty on May 23, 2017, complicated by wound dehiscence requiring a second jose juan nilda on May 26, 2017 and postoperative antibiotics. 4. Hypertension. 5. Diabetes. 6. Hyperlipidemia. 7. Obstructive sleep apnea. RECOMMENDATION: 1. Continue current IV fluid. 2. Check urine studies as you have done. 3. Follow chemistries off vanco. 4. Continue to hold metformin, lisinopril and nonsteroidal agents while the patient's creatinine is elevated. 5. Avoid IV contrast. 6. No indications for acute dialysis. 7. Check complement levels. HISTORY: Pietro Sadler is very pleasant, 71-year-old gentleman I have been asked to consult on by Dr. Juan uLis Thorne. The patient was admitted yesterday with an elevated creatinine and vancomycin level fou nd incidentally on routine monitoring while on a 6 week course of vancomycin. His vancomycin was st arted on the . He has been getting labs twice a week which have showed stable measurements of c reatinine ranging from 0.9 to 1.09. The patient's baseline creatinine is 0.9 based on review of old records. On the , his creatinine had jumped up suddenly to 5.2. Vancomycin levels that had be en ranging between 14.5 and 16.5, were found to be elevated at 63.9. The patient was brought into [facility] emergency room for further evaluation. There his creatinine was confirmed to be elevated at 4.9. The patient received IV fluids and was admitted for further evaluation. Here in the hospital he has been receiving IV fluids. He had a renal ultrasound that showed symmetr ic normal appearing kidneys bilaterally. There is no hydronephrosis. He was taken off his metformi n and lisinopril. He is on these medications for treatment of his chronic high blood pressure and d iabetes related issues. He had been using ibuprofen 200 mg 1-2 tablets per day. This medication wa s also discontinued. The patient states he had some decreased oral intake but had no nausea, vomiti ng or diarrhea. He had no other obvious volume losses. During this time, he has received no IV contrast. He has received no other nephrotoxic agents or an tibiotics. On presentation, the patient had normal heart rate and was normotensive. There was no history of hy potension or orthostasis at home. PAST MEDICAL HISTORY: Hypertension, diabetes, hyperlipidemia, obstructive sleep apnea, and orthoped ic issues. He had left knee pain which resulted in him getting his left total knee replacement on May 23, 2017 . He has had prior orthopedic surgeries. He has had a rotator cuff surgery as well as removal of his left patella. The left patella surgery was in 1967. Other surgical history is for left heart hussain terization in 2004. OUTPATIENT MEDICATIONS: Oxycodone IR, metformin 500 mg once daily, ibuprofen 200 mg 1-2 per daily p er day, lisinopril 30 mg daily and simvastatin 20 mg daily. He also takes Singulair. ALLERGIES: None. FAMILY HISTORY: Coronary artery disease. SOCIAL HISTORY: He drinks 3-4 servings per wine per day. He is originally from [place], [place]. He went to [employer] for [employer]. 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 He has been in [place] since 1984. 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 He reti red in 2011. REVIEW OF SYSTEMS: A 10-point review of systems is unremarkable. The patient has knee pain and swe lling. He has no nausea, vomiting or diarrhea. Denies any other constitutional symptoms up until y when he developed a fever. There is also report of chest rash and redness in his face and scalp. The remainder is completely negative. PHYSICAL EXAMINATION: VITAL SIGNS: Temp 37.6, T-max 38.3, pulse 79, respiration 12, blood pressure 105/46, saturating 96% on room air. IN'S AND OUT'S: He has had 750 in and 300 out overnight. He weighs 84 kilos. GENERAL: No apparent distress. Slightly overweight male sitting fairly comfortable in bed. He ross s complain of left knee pain. HEENT: Atraumatic, normocephalic. NECK: Unremarkable without carotid bruits. Upstrokes are normal. No lymphadenopathy. HEART: Regular with no extra heart sounds. LUNGS: Clear. ABDOMEN: Benign. Soft. Nontender. No rebound or guarding. No obvious organomegaly or masses. H e specifically has no hepatomegaly or splenomegaly. EXTREMITIES: He has some edema and postsurgical changes around his left knee. His ankles are free of edema. Distal pulses are intact. LABORATORY DATA: Labs show a creatinine of 5.2, potassium 4.1, sodium 128. ASSESSMENT: Acute kidney injury. I suspect this is related to vancomycin toxicity. The surprising thing is how sudden the onset of the injury was and the fact that it occurred with such close monit oring and with levels that were right at target range. Unfortunately, vancomycin toxicity appears to be occurring more frequently and at lower doses of van comycin than what has been seen in the past. The patient has no other obvious provocative factors c ausing his acute kidney injury. His urinalysis is free of blood and protein. There is no evidence to suggest a co-infectious or postinfectious glomerular nephritis or an allergic interstitial nephri tis based on what his current urine studies show. This is all consistent with tubular injury related to vancomycin toxicity. If this is indeed vancom ycin toxicity, the creatinine should plateau and subsequently come down as vanco levels fall. Patie nt's typically remain nonoliguric. They typically do not develop any significant electrolyte abnorm alities that would prompt the need for dialysis. Given his lack of blood and protein in the urine, I do not think he needs a serologic workup. I certainly do not think he needs empiric steroids for treatment of an allergic interstitial nephritis. Vancomycin typically is a tubular injury and stero id therapy is not indicated in that setting. He should remain off his FAY inhibitor, metformin and nonsteroidal agents. It sounds like he will f inish his 6 week course of antibiotic with an agent that has limited kidney related risk. Once we see his creatinine fall in a meaningful way, I think the patient can be monitored effectivel y and managed as an outpatient. I would like to see the creatinine below 4 before doing that. He should stay off his FAY inhibitor, nonsteroidal agent and metformin until his creatinine has comp letely normalized. /[id number]/MODL
[2017-06-20] MEDS ORDERED: BISACODYL 10 MG SUPP PR PRN (15:12)
[2017-06-20] MEDS ORDERED: POLYETHYLENE GLYCOL 3350 17 GM PKT PO PRN (15:12)
[2017-06-20] MEDS ORDERED: NON-FORMULARY NEW DRUG (Simvastatin [Zocor] 20 MG) PO SCH (21:00)
[2017-06-20] MEDS: ATORVASTATIN CALCIUM 10 MG TAB PO SCH (21:22)
[2017-06-20] MEDS: SENNOSIDES/DOCUSATE SODIUM TAB PO SCH (21:22)
[2017-06-21] MEDS: NS 1,000 ML IV SCH (05:54)
[2017-06-21] MEDS: HEPARIN 5,000 UNIT/0.5 ML SYR SC SCH ×3 (05:54→21:05)
[2017-06-21 06:27] LABS: ALANINE AMINOTRANSFERASE 49 IU/L (21-72); ALBUMIN 2.8 g/dL (3.5-5.0); ALKALINE PHOSPHATASE 54 IU/L (38-126); ANION GAP 13 mEq/L (8-16); ASPARTATE AMINOTRANSFERASE 30 IU/L (17-59); BILIRUBIN,TOTAL 0.4 mg/dL (0.1-1.4); BILIRUBIN-CONJUGATED 0.4 mg/dL (0.0-0.5); CALCIUM 8.1 mg/dL (8.5-10.4); CARBON DIOXIDE 15 mEq/l (22-31); CHLORIDE 104 mEq/L (97-110); GLOMERULAR FILTRATION RATE 9; GLUCOSE 90 mg/dL (70-100); POTASSIUM 4.3 mEq/L (3.5-5.2); SODIUM 132 mEq/L (134-144); TOTAL PROTEIN 4.8 g/dL (6.3-8.2)
[2017-06-21 06:33] LABS: VANCOMYCIN RANDOM LEVEL 35.4 mcg/mL (0.0-40.0)
[2017-06-21] MEDS: INSULIN LISPRO 100 UNIT/ML SC SCH ×3 (07:26→17:56)
[2017-06-21] MEDS: SENNOSIDES/DOCUSATE SODIUM TAB PO SCH ×2 (10:07→21:05)
--- NOTE | 2017-06-21 11:03 | HOSPPROG ---
Hospitalist Progress Note Assessment/Plan: The patient is a 71-year-old male with history of hypertension diabetes who underwent a TKA in April 2017. During his recent hospitalization he was treated for prostatic joint infection and discharged home. * acute kidney injury Creatinine is 6 (trending up) Ultrasound shows normal appearing kidneys without hydronephrosis Will avoid any nephrotoxic medications continue normal saline appreciate nephrology seeing Pietro * vancomycin toxicity causing the above *fever likely due to drug toxicity blood cx pending *rash/chest, back and left leg ?if from the vancomycin on back in more of a macular rash/on abd/leg flat fine rash (dermatitis) * diabetes Metformin on hold *Left total knee arthroplasty wound dehiscence. s/p 3 weeks of treatment w vanco likely to start on oral therapy per ID * hypertension/BP stable Lisinopril on hold in the setting of acute renal failure * hyperlipidemia statin *DVT prophylaxis: heparin sq Subjective: Pietro has no complaints. Objective: Vital Signs Temp Pulse Resp BP Pulse Ox 37.2 C 75 20 116/46 L 94 06/21/17 07:14 06/21/17 07:14 06/21/17 07:14 06/21/17 07:14 06/21/17 07:14 Laboratory Results 06/21/17 05:45 06/20/17 06/21/17 06/22/17 05:59 05:59 05:59 Intake Total 275 Output Total 400 Balance -125 PT 15.9 SEC (12.0-15.0) H 06/20/17 03:20 INR 1.27 (0.83-1.16) H 06/20/17 03:20 - Physical Exam Constitutional: no apparent distress, appears nourished, not in pain Eyes: PERRL Ears, Nose, Mouth, Throat: hearing normal Cardiovascular: regular rate and rhythym Respiratory: no respiratory distress Gastrointestinal: normoactive bowel sounds Skin: rash (back, chest, left leg upper thigh area) Musculoskeletal: generalized weakness (left knee with redness along the incision (well approximated) and has some swelling) Neurologic: AAOx3 Psychiatric: interacting appropriately, not anxious, not encephalopathic ICD10 Worksheet Patient Problems: Problems Problem Status Onset Acute renal failure Acute Fever Acute Hyponatremia Acute Arthritis of right knee Acute
--- NOTE | 2017-06-21 13:46 | SOAPPROG ---
SOAP Progress Note Assessment/Plan: Assessment: 1. arf: likely atn, vanco toxicity vs ischemia vs combo. Management unchanged regardless of etiology. No convincing evidence of ain and management of this would also be withdrawal of drug and observation. Creat cont to increase but non -oliguric with good volume status and stable lytes. Has developed met acidosis, will add some bicarb to ivf. Would cont to hold acei, particularly in light of bp here. 2. ID: off vanco, level decreasing, ID following 3. htn: hold lisinopril as above. If anything, bp running a bit low here. Plan: 06/21/17 13:42 Subjective: Feeling relatively well overall. Objective: Vital Signs Temp Pulse Resp BP Pulse Ox 37.8 C 71 18 114/65 94 06/21/17 11:29 06/21/17 11:29 06/21/17 11:29 06/21/17 11:29 06/21/17 11:29 Laboratory Results 06/21/17 05:45 06/20/17 06/21/17 06/22/17 05:59 05:59 05:59 Intake Total 275 Output Total 400 Balance -125 PT 15.9 SEC (12.0-15.0) H 06/20/17 03:20 INR 1.27 (0.83-1.16) H 06/20/17 03:20 Physical Exam - Physical Exam General Appearance: no apparent distress Respiratory: lungs clear Cardiac/Chest: regular rate, rhythm Extremities: pedal edema (none) ICD10 Worksheet Patient Problems: Problems Problem Status Onset Acute renal failure Acute Fever Acute Hyponatremia Acute Arthritis of right knee Acute
[2017-06-21] MEDS: SODIUM BICARBONATE 150 MEQ in D5W 1,000 ML IV SCH (14:12)
[2017-06-21] MEDS: oxyCODONE IR 5 MG TAB PO PRN ×2 (14:21→21:08)
--- NOTE | 2017-06-21 16:26 | PCMIDPN ---
Assessment/Plan: Assessment/Plan: * Acute nephrotoxicity likely associated with vancomycin nephrotoxicity: Creatinine increased to 6.0 today. Electrolytes remained stable. Clinical findings and plan reviewed with Nephrology today. * Left total knee arthroplasty wound dehiscence with penetration to joint: Treating as if prosthetic joint infection given penetration to joint. Anticipate transitioning to oral therapy such as doxycycline to complete remaining 3 weeks once vancomycin level decreased below 10. * Fever: Likely associated with drug toxicity rather than new infectious process. Blood cultures remain negative. * Rash: Faint, subtle rash over chest wall and left thigh which may be vancomycin related. No significant worsening last 24 hours. 06/21/17 16:21 Subjective: Patient without complaints. Continues to make urine. Objective: Vital Signs Temp Pulse Resp BP Pulse Ox 37.3 C 70 18 127/61 H 94 06/21/17 15:36 06/21/17 15:36 06/21/17 15:36 06/21/17 15:36 06/21/17 15:36 Laboratory Results 06/21/17 05:45 06/20/17 06/21/17 06/22/17 05:59 05:59 05:59 Intake Total 275 Output Total 400 Balance -125 Laboratory Tests 06/21/17 05:45 Total Bilirubin 0.4 AST 30 ALT 49 Alkaline Phosphatase 54 Albumin 2.8 L Random Vancomycin 35.4 - Physical Exam General Appearance: alert, no apparent distress EENT: No scleral icterus Extremities: inflammation (Left knee incision intact with mild warmth; no overlying erythema; some scabbing present) Abdomen: non-tender, No distended Skin: rash (Fine macular rash over upper abdomen/lower chest/back (back also with follicular rash)) ICD10 Worksheet Patient Problems: Problems Problem Status Onset Acute renal failure Acute Fever Acute Hyponatremia Acute Arthritis of right knee Acute
[2017-06-21] MEDS: ACETAMINOPHEN 325 MG TAB PO PRN (17:44)
[2017-06-21 18:20] LABS: C3 COMPLEMENT COMPONENT 91 mg/dL (75 - 175); C4 COMPLEMENT COMPONENT 27 mg/dL (14 - 40)
[2017-06-21] MEDS: ATORVASTATIN CALCIUM 10 MG TAB PO SCH (21:05)
[2017-06-22] MEDS: SODIUM BICARBONATE 150 MEQ in D5W 1,000 ML IV SCH (04:00)
[2017-06-22] MEDS: ACETAMINOPHEN 325 MG TAB PO PRN ×3 (04:02→13:10)
[2017-06-22] MEDS: HEPARIN 5,000 UNIT/0.5 ML SYR SC SCH ×3 (05:17→21:08)
[2017-06-22 05:42] LABS: ANION GAP 10 mEq/L (8-16); CALCIUM 7.9 mg/dL (8.5-10.4); CARBON DIOXIDE 19 mEq/l (22-31); CHLORIDE 100 mEq/L (97-110); CREATININE 6.1 mg/dL (0.7-1.3); GLOMERULAR FILTRATION RATE 9; GLUCOSE 126 mg/dL (70-100); SODIUM 129 mEq/L (134-144)
[2017-06-22 05:43] LABS: ALBUMIN 2.5 g/dL (3.5-5.0)
[2017-06-22 05:47] LABS: VANCOMYCIN RANDOM LEVEL 32.5 mcg/mL (0.0-40.0)
[2017-06-22] MEDS: oxyCODONE IR 5 MG TAB PO PRN ×3 (07:32→21:07)
[2017-06-22] MEDS: INSULIN LISPRO 100 UNIT/ML SC SCH ×3 (07:58→18:49)
--- NOTE | 2017-06-22 08:37 | SOAPPROG ---
SOAP Progress Note Assessment/Plan: Assessment: 1. OPAL. Suspected vanco nephrotoxicity/possible ATN (lots of epith cells seen in urine). Vanc related AIN seems less likely given abruptness although has few urine eos. OPAL in this situation can be sign of occult infection but this is thought to be improving. Vanc on hold. Holding lisinopril, metformin. Creat may be plateauing (delta lower today). Oliguric, but uop picking up. No acute HD indications. Can slow IVF slightly, likely d/c soon. 2. Acidosis. Improving on HCO3 gtt. 3. L knee prosthesis infection. Vanc level 32. BCxs neg. Plan: 06/22/17 08:35 06/22/17 08:36 06/22/17 08:37 06/22/17 08:38 06/22/17 08:39 06/22/17 08:42 06/22/17 08:46 Subjective: Concerned b/c BS was 140 this am and needed to start NC O2 for RA sat of 87%. L knee still hurts. Has not had an appetite for weeks. Was worse over last weekend. Had temp of 38.8 c last night. Objective: Vital Signs Temp Pulse Resp BP Pulse Ox 98.7 C H 72 18 122/62 H 97 06/22/17 07:19 06/22/17 07:19 06/22/17 07:19 06/22/17 07:19 06/22/17 07:19 Laboratory Results 06/22/17 05:15 06/21/17 06/22/17 06/23/17 05:59 05:59 05:59 Intake Total 275 2400 Output Total 400 550 Balance -125 1850 PT 15.9 SEC (12.0-15.0) H 06/20/17 03:20 INR 1.27 (0.83-1.16) H 06/20/17 03:20 Comfortable wm in bed RRR, no m/g/r CTAB Abdom soft, nt L knee with lat incision, well healed, ice on No edema No skin tenting ICD10 Worksheet Patient Problems: Problems Problem Status Onset Arthritis of right knee Acute Acute renal failure Acute Fever Acute Hyponatremia Acute
[2017-06-22] MEDS: SENNOSIDES/DOCUSATE SODIUM TAB PO SCH ×2 (09:20→21:08)
--- NOTE | 2017-06-22 09:53 | HOSPPROG ---
Hospitalist Progress Note Assessment/Plan: *s/p TKA in April 2017 recent prosthetic joint infection treated with vanco wound dehiscence, healing cryo machine started for comfort PT * acute kidney injury secondary to vanco toxicity Creatinine remains >6 Ultrasound shows normal appearing kidneys without hydronephrosis Will avoid any nephrotoxic medications continue normal saline appreciate nephrology, discussed care plan with [facility] *fever likely due to drug toxicity blood cx pending Discussed care plan with Dr Thorne, ID *hypoxia ?volume overload vs infection CXR this AM O2 trial nebs *rash/chest, back and left leg ?if from the vancomycin *type 2 diabetes Metformin on hold blood sugars OK * hypertension BP stable Lisinopril on hold in the setting of acute renal failure * hyperlipidemia statin *DVT prophylaxis: heparin sq DISPO > 2 mdnts due to severeity of OPAL FULL CODE Subjective: Feels some difficulty with breathing- low O2, needing oxygen. No n/v /d. Had temp last nt. Objective: Vital Signs Temp Pulse Resp BP Pulse Ox 209.7 F H 72 18 122/62 H 97 06/22/17 07:19 06/22/17 07:19 06/22/17 07:19 06/22/17 07:19 06/22/17 07:19 Laboratory Results 06/22/17 05:15 06/20/17 06/21/17 06/22/17 11:59 11:59 11:59 Intake Total 275 2400 Output Total 400 550 Balance -125 1850 PT 15.9 SEC (12.0-15.0) H 06/20/17 03:20 INR 1.27 (0.83-1.16) H 06/20/17 03:20 - Time Spent With Patient Time Spent with Patient: greater than 35 minutes Time Spent with Patient: Greater than 35 minutes spent on this patients care, greater than 50% of time spent counseling, educating, and coordinating care regarding the above mentioned plan. - Pending Discharge Pending Discharge Within 48 Hours: No - Physical Exam Constitutional: no apparent distress, appears nourished, not in pain Eyes: anicteric sclera, EOMI Ears, Nose, Mouth, Throat: moist mucous membranes, hearing normal Cardiovascular: regular rate and rhythym, edema (trace B) Respiratory: no respiratory distress, reduced air movement, No no rales or rhonchi Skin: warm, other (LLE knee scare noted) Psychiatric: interacting appropriately, not anxious, not encephalopathic, thought process linear ICD10 Worksheet Patient Problems: Problems Problem Status Onset Acute renal failure Acute Fever Acute Hyponatremia Acute Arthritis of right knee Acute
[2017-06-22 10:47] LABS: % IMMATURE GRANULYOCYTES 0.6 % (0.0-1.1); ABSOLUTE IMMATURE GRANULOCYTES 0.04 10^3/uL (0.00-0.10); ADD DIFF? NO; ADD MORPH? NO; ADD SCAN? NO; ATYPICAL LYMPHOCYTE FLAG 50 (0-99); FRAGMENT RBC FLAG 0 (0-99); HEMATOCRIT 26.7 % (40.0-51.0); HEMOGLOBIN 8.9 g/dL (13.7-17.5); LEFT SHIFT FLG 10 (0-99); LIPEMIA HEMOLYSIS FLAG 80 (0-99); MEAN CELL HEMOGLOBIN 30.3 pg (27.9-34.1); MEAN CELL HEMOGLOBIN CONCENTR. 33.3 g/dL (32.4-36.7); MEAN CELL VOLUME 90.8 fL (81.5-99.8); MEAN PLATELET VOLUME 9.9 fL (8.7-11.7); PLATELET CLUMPS FLAG 0 (0-99); PLATELET COUNT 152 10^3/uL (150-400); RED BLOOD CELL COUNT 2.94 10^6/uL (4.40-6.38); RED CELL DISTRIBUTION WIDTH 13.8 % (11.5-15.2)
[2017-06-22] MEDS: ALBUTEROL 3 ML DEYVIAL IH PRN ×2 (11:10→16:36)
--- NOTE | 2017-06-22 11:49 | PCMIDPN ---
Assessment/Plan: Assessment/Plan: * Acute nephrotoxicity likely associated with vancomycin nephrotoxicity: Creatinine relatively stable today. Hope this represents plateau. Continue to follow with assistance from Nephrology. * Left total knee arthroplasty wound dehiscence with penetration to joint: Treating as if prosthetic joint infection given penetration to joint. Anticipate transitioning to oral therapy such as doxycycline to complete remaining 3 weeks once vancomycin level decreased below 10. * Fever: Likely associated with drug toxicity rather than new infectious process. Continues to have increase in eosinophil proportion. Will begin prednisone 40 mg orally daily with goal of decreasing inflammatory response. Plan 5 days of treatment. Side effects of prednisone reviewed with patient. Await repeat chest x-ray. * Rash: Faint, subtle rash over chest wall and left thigh which may be vancomycin related. See above discussion. 06/22/17 11:45 06/22/17 11:49 Subjective: Patient more short of breath today. No significant cough or chest pain. Knee feels significantly improved. Objective: Vital Signs Temp Pulse Resp BP Pulse Ox 37.1 C 86 16 143/62 H 100 06/22/17 07:19 06/22/17 11:16 06/22/17 11:16 06/22/17 11:16 06/22/17 11:16 Laboratory Results 06/22/17 10:30 06/22/17 05:15 06/21/17 06/22/17 06/23/17 05:59 05:59 05:59 Intake Total 275 2400 Output Total 400 550 Balance -125 1850 Blood cultures x2 06/19/2017 no growth Blood cultures x2 06/22/2017 pending Tm 38.8 Absolute eosinophil count 940 Laboratory Tests 06/22/17 05:15 Random Vancomycin 32.5 - Physical Exam General Appearance: alert, no apparent distress, non-toxic EENT: pharynx normal, other (No conjunctival injection), No scleral icterus Respiratory: other (Decreased breath sounds both bases) Cardiac/Chest: regular rate, rhythm, No systolic murmur Extremities: inflammation (Mild warmth over left knee; incision remains intact without painful range of motion) Abdomen: non-tender, No distended Skin: rash (Patient has follicular and fine macular rash over back; fine macular rash over chest and abdomen as well as anterior thighs) - Line/s LUE PICC Lines: other (Mild contact dermatitis under dressing), No drainage, No erythema ICD10 Worksheet Patient Problems: Problems Problem Status Onset Acute renal failure Acute Fever Acute Hyponatremia Acute Arthritis of right knee Acute
[2017-06-22] MEDS: predniSONE 20 MG TAB PO SCH (13:11)
[2017-06-22] MEDS: ATORVASTATIN CALCIUM 10 MG TAB PO SCH (21:08)
[2017-06-23] MEDS: ACETAMINOPHEN 325 MG TAB PO PRN (00:30)
[2017-06-23] MEDS: NS 1,000 ML IV SCH ×2 (00:30→18:06)
[2017-06-23] MEDS: HEPARIN 5,000 UNIT/0.5 ML SYR SC SCH ×3 (05:24→21:46)
[2017-06-23] MEDS: oxyCODONE IR 5 MG TAB PO PRN (05:24)
[2017-06-23 05:52] LABS: ALBUMIN 2.9 g/dL (3.5-5.0); ANION GAP 13 mEq/L (8-16); CARBON DIOXIDE 19 mEq/l (22-31); CHLORIDE 99 mEq/L (97-110); CREATININE 6.1 mg/dL (0.7-1.3); GLOMERULAR FILTRATION RATE 9; GLUCOSE 190 mg/dL (70-100); POTASSIUM 4.8 mEq/L (3.5-5.2); SODIUM 131 mEq/L (134-144)
[2017-06-23] MEDS: predniSONE 20 MG TAB PO SCH (08:26)
[2017-06-23] MEDS: SENNOSIDES/DOCUSATE SODIUM TAB PO SCH ×2 (08:26→20:06)
[2017-06-23] MEDS: INSULIN LISPRO 100 UNIT/ML SC SCH ×3 (08:27→18:06)
[2017-06-23] MEDS ORDERED: predniSONE 20 MG TAB PO SCH (09:00)
[2017-06-23] MEDS: ALBUTEROL 3 ML DEYVIAL IH PRN (09:09)
--- NOTE | 2017-06-23 10:38 | PCMIDPN ---
Assessment/Plan: 1. Nephrotoxicity associated with vancomycin: Continue supportive care. Thankfully, the patient is making urine. His creatinine seems to have plateaued. Repeat CBC with differential, CMP, and vancomycin level tomorrow. 2. History of left TKA with wound dehiscence down to the joint: As per Dr. Drew instructions, will change to doxycycline once vancomycin level has becomes subtherapeutic, or less than 10. his knee looks great. 3. History of fever: Likely secondary to AIN from vancomycin. Continue prednisone 40 mg daily, stop date June 26. 4. Rash: Likely secondary to vancomycin. On prednisone. No mucous membrane lesions, or evidence of TEN. Subjective: Feels better on prednisone. States that his appetite has returned and he feels more energetic. states that albuterol is helping his breathing. His knee feels fine. No nausea vomiting, diarrhea. Making good urine. Objective: Prednisone 40 mg daily day 2/, stop date June 26 Now afebrile on prednisone Vital Signs Temp Pulse Resp BP Pulse Ox 36.6 C 75 18 139/70 H 98 06/23/17 08:00 06/23/17 09:10 06/23/17 09:10 06/23/17 09:10 06/23/17 09:10 Laboratory Results 06/22/17 10:30 06/23/17 05:20 06/22/17 06/23/17 06/24/17 05:59 05:59 05:59 Intake Total 2400 400 Output Total 550 750 200 Balance 1850 -350 -200 repeat blood cultures yesterday no growth so far - Physical Exam General Appearance: alert, no apparent distress EENT: pharynx normal, No thrush Respiratory: lungs clear, wheezing ( very faint end-expiratory wheeze) Cardiac/Chest: regular rate, rhythm, No systolic murmur Extremities: other ( left knee incision clean, dry intact. Some scabbing superior pole of the incision that is dry. perhaps is some increased warmth compared with the right knee, but no obvious swelling.) Abdomen: non-tender, soft Skin: other ( Scarlatiniform rash noted on face neck and anterior chest. Apparently he had this on his anterior thighs and legs yesterday but I cannot appreciate that today. He has some hyperpigmented macules on his lower back that look more consistent with a contact dermatitis from sweating) ICD10 Worksheet Patient Problems: Problems Problem Status Onset Acute renal failure Acute Fever Acute Hyponatremia Acute Arthritis of right knee Acute
--- NOTE | 2017-06-23 13:46 | HOSPPROG ---
Hospitalist Progress Note Assessment/Plan: The patient is a 71-year-old male with history of hypertension, diabetes who underwent a TKA in April 2017. During his recent hospitalization he was treated for prostatic joint infection and discharged home. First encounter, chart reviewed. D/W Dr Lopez. *s/p TKA in April 2017 recent prosthetic joint infection treated with vanco wound dehiscence, healing cryo machine started for comfort PT * acute kidney injury secondary to vanco toxicity Creatinine remains >6 Ultrasound shows normal appearing kidneys without hydronephrosis Will avoid any nephrotoxic medications continue normal saline appreciate nephrology *fever likely due to drug toxicity blood cx ngtd Discussed care plan with Dr Lopez *hypoxia volume overload CXR shows some fluid overload consider lasix, defer to nephrology in the setting of OPAL O2 nebs *rash/chest, back and left leg ?if from the vancomycin *type 2 diabetes Metformin on hold blood sugars OK * hypertension BP stable Lisinopril on hold in the setting of acute renal failure * hyperlipidemia statin *Anemia ?related to renal fx and infection follow *DVT prophylaxis: heparin sq DISPO > 2 mdnts due to severeity of OPAL FULL CODE Subjective: Feeling better today. Concerned with kidney function. Pain controlled. Objective: Vital Signs Temp Pulse Resp BP Pulse Ox 36.7 C 75 20 136/64 H 98 06/23/17 11:57 06/23/17 11:57 06/23/17 11:57 06/23/17 11:57 06/23/17 11:57 Laboratory Results 06/22/17 10:30 06/23/17 05:20 06/22/17 06/23/17 06/24/17 05:59 05:59 05:59 Intake Total 2400 400 Output Total 550 750 200 Balance 1850 -350 -200 PT 15.9 SEC (12.0-15.0) H 06/20/17 03:20 INR 1.27 (0.83-1.16) H 06/20/17 03:20 - Physical Exam Constitutional: appears nourished, not in pain, chronically ill appearing Eyes: PERRL, anicteric sclera, EOMI Ears, Nose, Mouth, Throat: moist mucous membranes, hearing normal, ears appear normal Cardiovascular: regular rate and rhythym, edema, No JVD Respiratory: no respiratory distress, no rales or rhonchi, reduced air movement Gastrointestinal: normoactive bowel sounds, No tenderness, No ascites Skin: warm, normal color, No mottled Musculoskeletal: normal joint ROM, no joint effusions, generalized weakness Neurologic: AAOx3 Psychiatric: interacting appropriately, not anxious, not encephalopathic, thought process linear ICD10 Worksheet Patient Problems: Problems Problem Status Onset Acute renal failure Acute Fever Acute Hyponatremia Acute Arthritis of right knee Acute
--- NOTE | 2017-06-23 14:10 | SOAPPROG ---
SOAP Progress Note Assessment/Plan: Assessment: 1. arf: likely atn, vanco toxicity vs ischemia vs combo, possible element of ain. Management unchanged at this point regardless of etiology. On pred per ID for possible drug rxn, mgmt of ain would be w/d of offending agent. Creat stable , non-oliguric with reasonable volume status and stable lytes. No indication for hd. Anticipate improvment in creat shortly. 2. ID: off vanco, level decreasing, ID following 3. htn: hold lisinopril. Plan: 06/21/17 13:42 06/23/17 14:07 06/23/17 14:09 Subjective: No c/o Objective: Vital Signs Temp Pulse Resp BP Pulse Ox 36.7 C 75 20 136/64 H 98 06/23/17 11:57 06/23/17 11:57 06/23/17 11:57 06/23/17 11:57 06/23/17 11:57 Laboratory Results 06/22/17 10:30 06/23/17 05:20 06/22/17 06/23/17 06/24/17 05:59 05:59 05:59 Intake Total 2400 400 Output Total 550 750 200 Balance 1850 -350 -200 PT 15.9 SEC (12.0-15.0) H 06/20/17 03:20 INR 1.27 (0.83-1.16) H 06/20/17 03:20 Physical Exam - Physical Exam General Appearance: no apparent distress Respiratory: lungs clear Cardiac/Chest: regular rate, rhythm Extremities: pedal edema (trace) ICD10 Worksheet Patient Problems: Problems Problem Status Onset Acute renal failure Acute Fever Acute Hyponatremia Acute Arthritis of right knee Acute
[2017-06-23] MEDS: ATORVASTATIN CALCIUM 10 MG TAB PO SCH (21:46)
[2017-06-23] MEDS: METHOCARBAMOL 750 MG TAB PO PRN (21:46)
[2017-06-24 04:07] LABS: % IMMATURE GRANULYOCYTES 1.6 % (0.0-1.1); ABSOLUTE IMMATURE GRANULOCYTES 0.15 10^3/uL (0.00-0.10); ADD DIFF? NO; ADD MORPH? NO; ADD SCAN? NO; ATYPICAL LYMPHOCYTE FLAG 50 (0-99); FRAGMENT RBC FLAG 0 (0-99); HEMOGLOBIN 7.6 g/dL (13.7-17.5); LEFT SHIFT FLG 10 (0-99); LIPEMIA HEMOLYSIS FLAG 80 (0-99); MEAN CELL HEMOGLOBIN 30.2 pg (27.9-34.1); MEAN CELL VOLUME 91.3 fL (81.5-99.8); PLATELET CLUMPS FLAG 10 (0-99); PLATELET COUNT 180 10^3/uL (150-400); RED BLOOD CELL COUNT 2.52 10^6/uL (4.40-6.38); RED CELL DISTRIBUTION WIDTH 13.9 % (11.5-15.2)
[2017-06-24 04:24] LABS: ALANINE AMINOTRANSFERASE 72 IU/L (21-72); ALBUMIN 2.8 g/dL (3.5-5.0); ALKALINE PHOSPHATASE 57 IU/L (38-126); ANION GAP 12 mEq/L (8-16); ASPARTATE AMINOTRANSFERASE 39 IU/L (17-59); BILIRUBIN,TOTAL 0.4 mg/dL (0.1-1.4); CALCIUM 8.3 mg/dL (8.5-10.4); CARBON DIOXIDE 19 mEq/l (22-31); CHLORIDE 102 mEq/L (97-110); CREATININE 5.8 mg/dL (0.7-1.3); GLOMERULAR FILTRATION RATE 10; GLUCOSE 158 mg/dL (70-100); POTASSIUM 4.6 mEq/L (3.5-5.2); SODIUM 133 mEq/L (134-144); TOTAL PROTEIN 4.9 g/dL (6.3-8.2)
[2017-06-24 04:29] LABS: VANCOMYCIN RANDOM LEVEL 21.9 mcg/mL (0.0-40.0)
[2017-06-24] MEDS: HEPARIN 5,000 UNIT/0.5 ML SYR SC SCH ×3 (06:49→21:12)
[2017-06-24] MEDS: INSULIN LISPRO 100 UNIT/ML SC SCH ×3 (08:41→18:21)
[2017-06-24] MEDS: predniSONE 20 MG TAB PO SCH (08:43)
[2017-06-24] MEDS: ACETAMINOPHEN 325 MG TAB PO PRN ×3 (08:48→23:25)
[2017-06-24] MEDS: SENNOSIDES/DOCUSATE SODIUM TAB PO SCH ×2 (09:10→21:27)
[2017-06-24] MEDS ORDERED: FUROSEMIDE 40 MG/4 ML VIAL IVP ONE (09:51)
--- NOTE | 2017-06-24 10:00 | SOAPPROG ---
SOAP Progress Note Assessment/Plan: Assessment:Plan: OPAL-due to vanco toxicity -he remains non-oliguric with no significant electrolytes abnormalities, which would be typical of this injury -has has no indications for dialysis, and would be unlikely to need this sort of intervention (although it would have helped clear vanco faster) -vanco levels are falling very slowly, still 20+ today -he has volume overload -I would expect creatinine levels to fall once the vanco is at less toxic levels -given he has been started on prednisone for his rash, pursuing renal biopsy to distinguish between vanco induced ATN and allergic interstitial nephritis would have little utility as it would not change his course of therapy. -in addition, he will never receive vanco again and I will list this as an allergy Volume overload-stop MIVF -give lasix -follow response Anemia-check retic and iron studies -certainly has increased destruction and decreased production in the setting of acute illness -I do not think there is a role for REE -may benefit from transfusion, but I would correct his volume status first Rash-likely due to vanco -on steroids -other medications reviewed 06/24/17 09:54 Subjective: feels his heart rate is up, has had hearing issues that have worsened, ongoing rash Objective: Vital Signs Temp Pulse Resp BP Pulse Ox 37.3 C 100 18 129/62 H 96 06/24/17 08:00 06/24/17 08:00 06/24/17 08:00 06/24/17 08:00 06/24/17 08:00 Laboratory Results 06/24/17 03:45 06/24/17 03:45 06/23/17 06/24/17 06/25/17 05:59 05:59 05:59 Intake Total 400 1087 147 Output Total 750 550 250 Balance -350 537 -103 PT 15.9 SEC (12.0-15.0) H 06/20/17 03:20 INR 1.27 (0.83-1.16) H 06/20/17 03:20 Physical Exam - Physical Exam General Appearance: alert, mild distress EENT: normal ENT inspection, other (bilateral hearing aids) Neck: normal inspection Respiratory: decreased breath sounds (1/3 bilaterally) Cardiac/Chest: regular rate, rhythm, No diastolic murmur, No systolic murmur Abdomen: normal bowel sounds, non-tender, distended, No hepatomegaly, No splenomegaly Skin: rash Extremities: swelling Neuro/Psych: no motor/sensory deficits, alert, normal mood/affect ICD10 Worksheet Patient Problems: Problems Problem Status Onset Acute renal failure Acute Fever Acute Hyponatremia Acute Arthritis of right knee Acute
--- NOTE | 2017-06-24 10:07 | PCMIDPN ---
Assessment/Plan: 1. Nephrotoxicity associated with vancomycin: Continue supportive care. Thankfully, the patient is making urine. His creatinine seems to have plateaued. 2. History of left TKA with wound dehiscence down to the joint: The patient and his are loath to start a different antibiotic. This will need to be an ongoing discussion when Dr. Thorne returns. 3. History of fever: Likely secondary to AIN from vancomycin. Continue prednisone 40 mg daily, stop date June 26. 4. Rash: Worse today, on arms and under armpits; also confluent erythema along his back. No bullae, or skin desquamation or mucous membrane lesions. Continue prednisone. Reviewed medication list; no other culpable medications other than vancomycin. 5. Hearing dysfunction: Concerning for Vancomycin ototoxicity. Spoke with Dr. Juan Luis Albright of Otolaryngology. They do not do in-house audiograms; will try and arrange for the patient to go down to ENT clinic in a wheelchair on Monday. We will need to call them again on Monday to arrange for this. He also thought that perhaps the patient had some fluid in his inner ear that could be causing the patient to hear his own heartbeat, etc. Diuresis may help this. That being said, he also feels the patient needs an audiogram (last audiogram 2 years ago). Agreed with prednisone. This plan was conveyed to the patient and his . 06/24/17 09:56 Subjective: Patient's rash is worse today. It has spread to his arms and underneath axillae. His face is red, and the rash is now confluent on his back. Did not sleep very well. His also notes that his TV volume was turned up to the maximum yesterday. Patient states he had to turn his hearing aids to the highest level. Denies tinnitus, but feels that he can hear his own heartbeat. No nausea or vomiting. Objective: T-max 37.3degrees Vital Signs Temp Pulse Resp BP Pulse Ox 37.3 C 100 18 129/62 H 96 06/24/17 08:00 06/24/17 08:00 06/24/17 08:00 06/24/17 08:00 06/24/17 08:00 Laboratory Results 06/24/17 03:45 06/24/17 03:45 06/23/17 06/24/1717 05:59 05:59 05:59 Intake Total 400 1087 147 Output Total 750 550 250 Balance -350 537 -103 Laboratory Tests 06/23/17 06/24/17 06/24/17 05:20 03:45 03:45 Hct 23.0 L Creatinine 6.1 H 5.8 H ALT 72 Alkaline Phosphatase 57 Random Vancomycin 21.9 - Physical Exam General Appearance: other (Looks uncomfortable.) EENT: pharynx normal, No thrush Respiratory: other (decreased breath sounds) Cardiac/Chest: tachycardia Abdomen: non-tender, soft Skin: rash (Patient has confluent blanching erythema along his entire back. Scarlatiniform erythematous macular papular rash along his neck, chest, arms and under arms, abdomen and legs. Confluent blanching erythema of his face as well. No bullae. No skin desquamation.) ICD10 Worksheet Patient Problems: Problems Problem Status Onset Acute renal failure Acute Fever Acute Hyponatremia Acute Arthritis of right knee Acute
--- NOTE | 2017-06-24 10:41 | HOSPPROG ---
Hospitalist Progress Note Assessment/Plan: The patient is a 71-year-old male with history of hypertension, diabetes who underwent a TKA in April 2017. During his recent hospitalization he was treated for prostatic joint infection and discharged home. D/W Dr Lopez and Dr Huntley. *s/p TKA in April 2017 recent prosthetic joint infection treated with vanco wound dehiscence, healing cryo machine PT * acute kidney injury secondary to vanco toxicity he remains non-oliguric with no significant electrolytes abnormalities, which would be typical of this injury vanco levels are falling very slowly, still 20+ today I would expect creatinine levels to fall once the vanco is at less toxic levels he has been started on prednisone for his rash * Volume overload-stop MIVF give lasix per nephrology * Anemia-check labs, retic and iron studies has increased destruction and decreased production in the setting of acute illness partial dilution in the setting of fluid overload follow labs in am * Rash-likely due to vanco on steroids *fever likely due to drug toxicity blood cx ngtd Discussed care plan with Dr Lopez *hypoxia volume overload CXR shows some fluid overload lasix tody per nephro O2, nebs *type 2 diabetes Metformin on hold blood sugars OK * hypertension BP stable Lisinopril on hold in the setting of acute renal failure * hyperlipidemia statin *DVT prophylaxis: heparin sq DISPO > 2 mdnts due to severeity of OPAL FULL CODE Subjective: Not feeling well today. Some SOB. Tired. Objective: Vital Signs Temp Pulse Resp BP Pulse Ox 37.3 C 100 18 129/62 H 96 06/24/17 08:00 06/24/17 08:00 06/24/17 08:00 06/24/17 08:00 06/24/17 08:00 Laboratory Results 06/24/17 03:45 06/24/17 03:45 06/23/17 06/24/17 06/25/17 05:59 05:59 05:59 Intake Total 400 1087 147 Output Total 750 550 250 Balance -350 537 -103 PT 15.9 SEC (12.0-15.0) H 06/20/17 03:20 INR 1.27 (0.83-1.16) H 06/20/17 03:20 - Physical Exam Constitutional: appears nourished, chronically ill appearing, uncomfortable Eyes: PERRL, anicteric sclera, EOMI Ears, Nose, Mouth, Throat: moist mucous membranes, hearing normal, ears appear normal Cardiovascular: tachycardia, edema, No JVD Respiratory: no respiratory distress, no rales or rhonchi, reduced air movement Gastrointestinal: normoactive bowel sounds, No tenderness, No ascites Skin: warm, erythema, rash Musculoskeletal: no joint effusions, pain with ROM, generalized weakness Neurologic: AAOx3 Psychiatric: interacting appropriately, not anxious, not encephalopathic, thought process linear ICD10 Worksheet Patient Problems: Problems Problem Status Onset Arthritis of right knee Acute Acute renal failure Acute Fever Acute Hyponatremia Acute
[2017-06-24 12:09] LABS: ALBUMIN 2.7 g/dL (3.5-5.0); ANION GAP 12 mEq/L (8-16); CALCIUM 8.3 mg/dL (8.5-10.4); CARBON DIOXIDE 19 mEq/l (22-31); CHLORIDE 102 mEq/L (97-110); CREATININE 5.9 mg/dL (0.7-1.3); GLOMERULAR FILTRATION RATE 10; GLUCOSE 158 mg/dL (70-100); POTASSIUM 4.7 mEq/L (3.5-5.2); SODIUM 133 mEq/L (134-144)
[2017-06-24] MEDS: ATORVASTATIN CALCIUM 10 MG TAB PO SCH (21:12)
[2017-06-24] MEDS: METHOCARBAMOL 750 MG TAB PO PRN (21:20)
[2017-06-25] MEDS: HEPARIN 5,000 UNIT/0.5 ML SYR SC SCH ×3 (05:25→22:15)
[2017-06-25 05:36] LABS: HEMATOCRIT 30.3 % (40.0-51.0); HEMOGLOBIN 10.3 g/dL (13.7-17.5); MEAN CELL HEMOGLOBIN 30.5 pg (27.9-34.1); MEAN CELL VOLUME 89.6 fL (81.5-99.8); RED BLOOD CELL COUNT 3.38 10^6/uL (4.40-6.38); RED CELL DISTRIBUTION WIDTH 14.3 % (11.5-15.2)
[2017-06-25 05:50] LABS: ALBUMIN 2.6 g/dL (3.5-5.0); ANION GAP 10 mEq/L (8-16); CALCIUM 8.6 mg/dL (8.5-10.4); CARBON DIOXIDE 18 mEq/l (22-31); CHLORIDE 102 mEq/L (97-110); GLOMERULAR FILTRATION RATE 9; GLUCOSE 103 mg/dL (70-100); POTASSIUM 4.7 mEq/L (3.5-5.2); SODIUM 130 mEq/L (134-144)
[2017-06-25 05:59] LABS: % SATURATION 21 % (20-55); TOTAL IRON BINDING CAPACITY 192 ug/dL (260-490)
[2017-06-25] MEDS: ALBUTEROL 3 ML DEYVIAL IH PRN (08:16)
[2017-06-25] MEDS: ACETAMINOPHEN 325 MG TAB PO PRN (08:34)
[2017-06-25] MEDS ORDERED: methylPREDNISolone SOD SUCC 125 MG/2 ML VIAL IVP STA (08:56)
[2017-06-25] MEDS ORDERED: FAMOTIDINE 20 MG/NACL 50 ML IV STA (08:57)
[2017-06-25] MEDS ORDERED: FAMOTIDINE 20 MG/NACL/50 ML BAG IV ONE (09:02)
[2017-06-25 09:03] LABS: HEMATOCRIT 31.7 % (40.0-51.0); HEMOGLOBIN 10.6 g/dL (13.7-17.5); LIPEMIA HEMOLYSIS FLAG 80 (0-99); MEAN CELL HEMOGLOBIN CONCENTR. 33.4 g/dL (32.4-36.7); MEAN CELL VOLUME 89.8 fL (81.5-99.8); PLATELET CLUMPS FLAG 0 (0-99); PLATELET COUNT 277 10^3/uL (150-400); RED BLOOD CELL COUNT 3.53 10^6/uL (4.40-6.38); RED CELL DISTRIBUTION WIDTH 14.4 % (11.5-15.2)
[2017-06-25] MEDS ORDERED: methylPREDNISolone SOD SUCC 125 MG/2 ML VIAL ONE (09:05)
[2017-06-25] MEDS ORDERED: FUROSEMIDE 100 MG/10 ML VIAL IVP STA (09:06)
--- NOTE | 2017-06-25 09:09 | PCMIDPN ---
Assessment/Plan: 1. Hypersensitivity reaction secondary to vancomycin with nephrotoxicity, drug eruption, fever, and probable ototoxicity: Much worse today, with significant facial swelling; orbits are practically swollen shut. No evidence of TEN, or mucous membrane lesions. Stat vancomycin level pending. He is still making urine and his airway is intact although he is tachypneic in the setting of fever. Will transfer him to the intensive care unit and start Solu-Medrol and H1 H2 blockers. I was able to get in touch with Dr. Casandra Bourgeois, who recommended Solu-Medrol 125 mg x1 and then 60 mg IV Q 6 thereafter, which we are doing as outlined above. She will come and see the patient this afternoon. Question for Nephrology moving forward is whether dialysis to remove remaining vancomycin would be beneficial. Dr. Huntley will see the patient in short order this morning. Over 35 mins spent with pt this morning, coordinating acute care. Subjective: I was called to see the patient this morning in the setting of new facial swelling and tachypnea. Patient woke up this morning and told me "I could not see." He was reported to be confused, but the patient is alert and oriented x3 for me this morning. He denies tongue swelling or difficulty swallowing. There is no stridor but he is clearly tachypneic. His rash is worse, spreading in his inner thighs and lower extremities. Denies tinnitus, but feels that his hearing is not the same. Objective: Prednisone 40 mg daily (has received 3 days only. Does not given yet today) T-max 38.8degrees Vital Signs Temp Pulse Resp BP Pulse Ox 38.8 C H 122 H 26 H 123/69 H 96 06/25/17 08:00 06/25/17 08:00 06/25/17 08:00 06/25/17 08:00 06/25/17 08:00 Laboratory Results 06/25/17 05:30 06/24/17 06/25/17 06/26/17 05:59 05:59 05:59 Intake Total 1087 927 Output Total 550 1350 275 Balance 101 -471 -633 - Physical Exam General Appearance: other (Significant facial edema. Eyes are swollen shut.) EENT: pharynx normal Respiratory: other (Increased respiratory effort, but lungs clear) Cardiac/Chest: tachycardia Abdomen: soft, distended Skin: rash, other (No mucous membrane lesions. Patient has confluent blanching erythema along his entire back. Scarlatiniform erythematous macular papular eruption on neck chest arms underneath his arms abdomen and lower extremities. It appears worse on his lower extremities and inner thighs. No desquamation or bullae.) Neuro/Psych: oriented x 3 ICD10 Worksheet Patient Problems: Problems Problem Status Onset Acute renal failure Acute Fever Acute Hyponatremia Acute Arthritis of right knee Acute
[2017-06-25] MEDS ORDERED: FUROSEMIDE 40 MG/4 ML VIAL IVP ONE ×2 (09:11→09:15)
--- NOTE | 2017-06-25 09:11 | CPEKG ---
Heart Rate: 137 RR Interval: 438 P-R Interval: 164 QRSD Interval: 74 QT Interval: 308 QTC Interval: 465 P [place]: 250 QRS [place]: 56 T Wave [place]: 25 EKG Severity - ABNORMAL ECG - EKG Impression: SUPRAVENTRICULAR TACHYCARDIA ,LOW VOLTAGE EKG Impression: BORDERLINE R WAVE PROGRESSION, ANTERIOR LEADS Electronically Signed By: Sanchez Dumont 26-Jun-2017 08:26:13
--- NOTE | 2017-06-25 09:27 | HOSPPROG ---
Hospitalist Progress Note Assessment/Plan: The patient is a 71-year-old male with history of hypertension, diabetes who underwent a TKA in April 2017. During his recent hospitalization he was treated for prostatic joint infection and discharged home. D/W Dr Lopez and Dr Huntley. Transfer to ICU. D/W Dr Cabrera. 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 check LFT *Tachy in the setting of allergic reaction * acute kidney injury secondary to vanco toxicity he remains non-oliguric with no significant electrolytes abnormalities, which would be typical of this injury vanco levels are falling very slowly, still 20+ recheck today I would expect creatinine levels to fall once the vanco is at less toxic levels he has been started on prednisone for his rash * Volume overload-stop MIVF 40mg lasix given yesterday * Anemia-check labs, retic and iron studies has increased destruction and decreased production in the setting of acute illness partial dilution in the setting of fluid overload better today * Rash-likely due to vanco on steroids, low dose D/W Dr Lopez will give IV solumedrol 125mg then Q6h *fever likely due to drug toxicity blood cx ngtd Discussed care plan with Dr Lopez *hypoxia volume overload CXR shows some fluid overload, stat CXR today lasix per nephro O2, nebs *type 2 diabetes Metformin on hold blood sugars OK * hypertension BP stable Lisinopril on hold in the setting of acute renal failure * hyperlipidemia statin *DVT prophylaxis: heparin sq DISPO > 2 mdnts due to severeity of OPAL FULL CODE >75minutes spent Subjective: No specific complaints. SOB, no pain. Objective: Vital Signs Temp Pulse Resp BP Pulse Ox 38.8 C H 122 H 26 H 123/69 H 96 06/25/17 08:00 06/25/17 08:00 06/25/17 08:00 06/25/17 08:00 06/25/17 08:00 Laboratory Results 06/25/17 08:50 06/25/17 05:30 06/24/17 06/25/17 06/26/17 05:59 05:59 05:59 Intake Total 1087 927 Output Total 550 1350 275 Balance 537 -423 -826 PT 15.9 SEC (12.0-15.0) H 06/20/17 03:20 INR 1.27 (0.83-1.16) H 06/20/17 03:20 - Physical Exam Constitutional: chronically ill appearing, uncomfortable, No no apparent distress Eyes: PERRL, anicteric sclera, EOMI Ears, Nose, Mouth, Throat: moist mucous membranes, hearing normal, ears appear normal, no oral mucosal ulcers Cardiovascular: tachycardia, edema, No JVD Respiratory: reduced air movement, respiratory distress, rhonchi Gastrointestinal: No tenderness, No ascites, No guarding Skin: no induration, erythema, rash, No abrasion Musculoskeletal: no joint effusions, pain with ROM, generalized weakness Neurologic: AAOx3 Psychiatric: interacting appropriately, not encephalopathic, thought process linear ICD10 Worksheet Patient Problems: Problems Problem Status Onset Arthritis of right knee Acute Acute renal failure Acute Fever Acute Hyponatremia Acute
[2017-06-25 10:05] LABS: ALBUMIN 2.7 g/dL (3.5-5.0); BILIRUBIN,TOTAL 0.6 mg/dL (0.1-1.4); BILIRUBIN-CONJUGATED 0.6 mg/dL (0.0-0.5); TOTAL PROTEIN 4.7 g/dL (6.3-8.2)
--- NOTE | 2017-06-25 11:24 | SOAPPROG ---
SOAP Progress Note Assessment/Plan: Assessment:Plan: Facial Edema-ongoing severe allergic reaction -worsening rash -fever -given solumedrol famotidine and diphenhydramine OPAL-due to vanco toxicity -he remains non-oliguric with no significant electrolytes abnormalities, which would be typical of this injury -now he very well could have superimposed AIN from vanco or another agent -has has no indications for dialysis, and would be unlikely to need this sort of intervention (although it would have helped clear vanco faster) -vanco levels are falling very slowly, still 20+ today -he had volume overload, which appear improved today based on CXR and exam of LE's -I would expect creatinine levels to fall once the vanco is at less toxic levels -given he has been started on prednisone for his rash, pursuing renal biopsy to distinguish between vanco induced ATN and allergic interstitial nephritis would have little utility as it would not change his course of therapy. -in addition, he will never receive vanco again and I will list this as an allergy Volume overload-off MIVF -s/p lasix yesterday -follow response Anemia-better -low retic and iron sat -certainly has increased destruction and decreased production in the setting of acute illness -I do not think there is a role for REE Rash-could be due to vanco, but other causes need to be evaluated -on steroids -other medications reviewed -I would stop any and all extraneous medication, no matter how benign they may appear 06/25/17 11:29 Subjective: transferred to ICU due to facial edema and respiratory distress Objective: Vital Signs Temp Pulse Resp BP Pulse Ox 37.2 C 107 H 24 H 110/43 L 99 06/25/17 10:39 06/25/17 10:39 06/25/17 10:39 06/25/17 10:39 06/25/17 10:39 Laboratory Results 06/25/17 08:50 06/25/17 05:30 06/24/17 06/25/17 06/26/17 05:59 05:59 05:59 Intake Total 1087 927 Output Total 550 1350 275 Balance 537 -423 -275 PT 15.9 SEC (12.0-15.0) H 06/20/17 03:20 INR 1.27 (0.83-1.16) H 06/20/17 03:20 Physical Exam - Physical Exam General Appearance: moderate distress, obese EENT: other (facial edema, eyes swollen shut) Neck: normal inspection, other (swollen) Respiratory: decreased breath sounds, rhonchi Cardiac/Chest: regular rate, rhythm, No diastolic murmur, No systolic murmur Abdomen: normal bowel sounds, non-tender, soft, distended, No hepatomegaly, No splenomegaly Back: Normal inspection Skin: rash Extremities: No swelling Neuro/Psych: no motor/sensory deficits ICD10 Worksheet Patient Problems: Problems Problem Status Onset Acute renal failure Acute Fever Acute Hyponatremia Acute Arthritis of right knee Acute
[2017-06-25] MEDS ORDERED: D10W 250 ML PRN HYPOGLYCEMIA IV (11:30)
[2017-06-25] MEDS: SENNOSIDES/DOCUSATE SODIUM TAB PO SCH (11:42)
[2017-06-25] MEDS: INSULIN LISPRO 100 UNIT/ML SC SCH ×4 (11:45→22:14)
[2017-06-25] MEDS ORDERED: methylPREDNISolone SOD SUCC 125 MG/2 ML VIAL IVP SCH (12:00)
[2017-06-25 12:04] LABS: % IMMATURE GRANULYOCYTES 1.7 % (0.0-1.1); ADD DIFF? NO
[2017-06-25] MEDS: predniSONE 20 MG TAB PO SCH (12:51)
--- NOTE | 2017-06-25 15:14 | HOSPPROG ---
Hospitalist Progress Note Assessment/Plan: I'm am assuming care from Elizabeth Miranda due to severe allergic reaction / drug hypersensitivity requiring transfer to ICU. Pt seen and evaluated and chart reviewed. Case discussed with ID, Nephrology and dynamo tender # Severe drug hypersensitivity with extensive drug rash, facial edema and fever - Suspect Vancomycin is the culprit in the setting of poor clearance with renal failure. ?DRESS with recent eosinopilia and now mild elevation of LFT's. -IV Solumedrol, H2 roland, Benadryl -dc statin (received different statin here), robaxin, and other new meds -customer service representative teller to consult -ICU monitoring # Acute hypoxemic respiratory failure - Requiring 6 LPM. Consider pneumonitis given above, though pt likely atelectatic given sedation with Benadryl. CXR without edema or infiltrate. -Wean O2 as able # OPAL - Nephrotoxicity from Vancomycin, plus patient was on FAY and NSAID's, both of which have been held since admission. Renal following. Deferring dialysis at this time given severe allergic reaction as above. No UOP today. May be intravascularly deplete. -urine studies sent to calculate FeNa -avoid further nephrotoxic agents # S/P TKA 05/23/[address] Hernandez - had wound dehiscence post-op down to joint space and treated for joint infection with Vancomycin. No e/o wound infection at this time. # Blood loss anemia - Apparently had significant blood loss during dehiscence episode. Hgb now stable ~10. # Hypertension - BP's 110's, holding lisinopril as above # DM - Holding Metformin in setting of OPAL. -cont SSI # Full code # Dispo - cont inpt, ICU care # DVT PPLX - Heparin A total of 40 minutes was spent providing critical care, reviewing chart and discussing case with sub-specialty care. Subjective: Pt feels okay. Appears a bit SOB, but denies CP or SOB. +fever. Facial swelling. Denies throat swelling or difficulty with airway. Objective: Vital Signs Temp Pulse Resp BP Pulse Ox 37.2 C 73 16 112/46 L 96 06/25/17 10:39 06/25/17 14:00 06/25/17 14:00 06/25/17 14:00 06/25/17 14:00 Laboratory Results 06/25/17 08:50 06/25/17 05:30 06/24/17 06/25/17 06/26/17 05:59 05:59 05:59 Intake Total 1087 927 Output Total 550 5960 275 Balance 537 -423 -275 PT 15.9 SEC (12.0-15.0) H 06/20/17 03:20 INR 1.27 (0.83-1.16) H 06/20/17 03:20 - Physical Exam Constitutional: no apparent distress Eyes: PERRL, other (rosita-orbital edema) Ears, Nose, Mouth, Throat: other (+facial edema, no angioedema or swelling of tongue or lips) Cardiovascular: tachycardia Respiratory: no respiratory distress, clear to auscultation Gastrointestinal: normoactive bowel sounds, soft, non-tender abdomen Skin: warm Neurologic: AAOx3 Psychiatric: interacting appropriately ICD10 Worksheet Patient Problems: Problems Problem Status Onset Acute renal failure Acute Fever Acute Hyponatremia Acute Arthritis of right knee Acute
[2017-06-25] MEDS: methylPREDNISolone SOD SUCC 125 MG/2 ML VIAL IVP SCH ×3 (16:55→23:53)
--- NOTE | 2017-06-25 17:00 | PDCONSULT ---
Workers Compensation Attorney Note: Reason For Consult: Allergic Reaction HPI: Pietro is a 71 y/o male who is being seen in consultation for suspected medication allergy to Vancomycin. He has a history of hypertension, diabetes, hyperlipidemia. He had a TKA 05/23/[address] China Hernandez, then had repair and I&D of dehisced wound 05/26/2017. He was started on Vancomycin and has been on home Vancomycin infusions starting May 30. His reports that he had a mild rash starting around June 08. Fever began June 19 which went up to approx 101. He was admitted on June 19 with a creatinine of 4.9. His eosinophils were mildly elevated at 530 on 06/19. They were previously normal at 0.24 on May 30. (note intercurrent labs were done outside of [facility] and not available at this point in time). He had a renal ultrasound which was unremarkable and CXR which was unremarkable other than a calcified granuloma. Up until today he had been on prednisone 40mg daily. He has continued to have fevers, and this morning had severe facial angioedema, respiratory distress and with maculopapular rash. He was given an increased dose of steroids-solumedrol 125mg IV and started on 60mg IV q6 hours, h2 and h1 blockade. At the time of exam this afteroon he was much improved. Facial swelling had signficantly improved as had the rash on his face. He was no longer in respiratory distress. He reported some relatively mild itching on his skin. Review of Systems: All/Immun- he reports no history of prior allergic reactions or angiodema Resp- currently does not report feeling sob - + for decreased urine output GI- no diarrhea/adb pain CV- history of hypertension PMHx: TKA 04/2017 with wound dehiscence, PICC line placement for Vanco infusion , HTN, Hyperlipidemia, Diabetes Home Medications Prior to Admit: Ibuprofen, Lisinopril, Zocor, Singulair, Metformin, Oxycodone Current Hospital Medications: Benadryl 25mg IV q6 hours prn, Solumedrol 125mg IV x 1 at 9:11am and 60mg q6 hours on going, famotidine 50mg IV qd, Albuterol neb q4 hours prn, tylenol 650mg q4 prn, heparin 5000 SC q8 hours Social History: He is . No tobacco or illicit drug use. Fam Hx: no history of angioedema, drug rash Physical Exam: Gen: sitting in chair, NAD HEENT: no erythema of face, face mild- mod edematous,able to open eyes, decreased hearing (wears hearing aids) Skin: confluent mac/pap rash over his back, blanching, no blisters/target lesions, no involvement of hands/soles of feet CV: RRR, no murmers Lungs: mild insp crackles b/l bases Ext- left knee with healing incision Neuro- Alert, oriented Laboratory data: Eosinophil levelsL 2.69 (06/25), 0.16 (06/24), 0.94( 06/22), 0.53 06/19 and normal on 05/30/17 at 0.24 Creatinine: 6 (06/25), 4.9 (06/19) 0.7 (06/19) ALT elevated at 106 06/25 which had previously been normal Blood clutures done 06/19 x2 and 06/22 x 2 no growth CXR: 06/22: mild new CHF Impression/Plan: 71 y/o with clinical presentation 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 He has significant worsening of symptoms this morning in association with a signficant increase in his eosinophil count. He has improved with increased steroid dose. DDX includes other types of severe drug reaction such as SJS, Vanco induced IgA bullous dermatosis, vasculitis, HES although based on his clinical history and laboratory results these are less likely and most c/w DRESS. Regarding further evaluation we could consider a skin biopsy with immunoflourescence if the clinical picture changes. Recommend continuing with present dose of IV steroids: solumedrol 60mg IV q6, we may be able to taper to a lower dose tomorrow such as solumedrol 40mg IV q6 hours if his eosinophil count has significantly decreased tomorrow and his symptoms are improving Close monitor for steroid side effects He will likely need to stay on relatively high doses of steroids as long as he has vancomycin in his system, and often DRESS can persists for months after the medication is discontinued From an allergic standpoint it would be ideal if the vancomycin could be removed via dialysis/CVVH if his renal function is not improving, however the risks and benefits of treating with steroids versus dialysis/cvvh need to be balanced. If he fails to improve we also could consider off label use, compassionate use, of an anti IL5 inhibitor of which there are case reports of using in DRESS syndrome. I discussed above with family (pt, and daughter) and answered questions
--- NOTE | 2017-06-25 18:46 | GCON ---
[f rep st] CONSULTATION PULMONARY CRITICAL CARE CONSULTATION DATE OF CONSULTATION: 06/25/2017 REASON FOR CONSULTATION: Intensive care unit evaluation and management of an acute allergic reactio n. HISTORY: The patient is a very pleasant 71-year-old who has been on vancomycin for a possible knee infection following left total knee surgery on 05/23. He was admitted on 06/19 secondary to acute r enal failure. This was felt to be due to vancomycin toxicity. He was doing well yesterday and subs equently developed increased drug rash, facial edema and fever. He was transferred to the intensive care unit as a stat call. He was given Benadryl, famotidine, and IV Solu-Medrol. Throughout the d ay, he has improved, with decreased swelling of his face. He has had no laryngeal symptoms, no sign ificant pulmonary symptoms. He is being seen by Allergy/Immunology at this time. His vancomycin reaction is also associated with renal toxicity. His creatinine is 6, BUN 84. He is being seen by Renal and dialysis is being considered. Urine output has been somewhat marginal toda y. At the current time, he feels significantly better than he did this morning. Vital signs are stable . He is on 6 L of oxygen. He feels he is significantly less swollen. PAST MEDICAL HISTORY: Remarkable for systemic hypertension, hyperlipidemia, type 2 diabetes, and ar thritis of the right knee. DRUG ALLERGIES: Vancomycin now. SOCIAL HISTORY: , worked at [employer]. Alcohol is minimal. He is a never smoker. PHYSICAL EXAMINATION: GENERAL: Physical examination reveals a relatively large man who is in no ac mary's igloo distress. His face remains somewhat puffy but he is able to open his eyes and currently see. V ITAL SIGNS: Blood pressure is 112/46, heart rate 80 with sinus rhythm on the monitor. Respiratory rate is 16. On 6 L OxyMask, he is 99%. He is afebrile with a maximum temperature earlier today of 38.8. HEENT: Remarkable for the facial swelling as outlined above. There is no stridor. The neck is large. CHEST: Clear. Breath sounds are somewhat diminished secondary to body habitus. There are no wheezes, no rhonchi. The heart tones are distant. The rhythm is regular. ABDOMEN: The abd omen is overweight, soft, nontender. Bowel sounds are present. EXTREMITIES: Remarkable for trace plus edema. NEUROLOGIC: Nonfocal. SKIN: There is some erythema, quite mild about the face and ne ck. DATABASE: Chest x-ray shows good expansion of both lungs. There may be a small infiltrate or area of atelectasis retrocardiac above the diaphragm. LABORATORY: Sodium is 130, potassium 4.7, CO2 18 with an anion gap of 10. BUN is 84 with creatinin e of 6. Glucose is 113. Iron and TIBC are both low. Bilirubin is 0.6, AST 49, with an ALT of 106. Albumin is 2.7. TSH is normal. Vancomycin level this morning was approximately 21. White blood cell count is 17,000, hematocrit 31, platelets 277,000. Lactate was 1.8. ASSESSMENT: 1. Allergic reaction. Secondary to vancomycin. He has been treated with Benadryl, Solu-Medrol, an d famotidine, and has improved significantly compared to where he was at this morning. Steroids angel l be continued. Famotidine is being given daily, adjusted for renal failure. Benadryl will be cont inued as needed. 2. Acute renal failure. Also secondary to vancomycin. Nephrology is following the patient. Dialy sis is being considered. 3. Recent total knee arthroplasty. 4. Infected knee, on vancomycin. 5. Deep venous thrombosis prophylaxis: Subcutaneous heparin. 6. History of diabetes. With the steroids, sugars may rise significantly. He is on sliding scale insulin coverage. Metformin is on hold. PLAN AND RECOMMENDATIONS: The patient will be kept in the intensive care unit. Solu-Medrol will be continued, Benadryl can be given routinely or as needed at this point. Famotidine will be continue d once a day. He may need dialysis: Per Renal. Infectious Disease will continue to follow the pat ient regarding possibly needing further antibiotics for a possible infection of his knee and associa bella hardware. Laboratory will be followed. Further plans and recommendations will be made based on his progress over the next 12 to 24 hours. /[id number]/MODL
[2017-06-26 05:06] LABS: ADD DIFF? YES; ADD MORPH? NO; ADD SCAN? NO; ALBUMIN 2.6 g/dL (3.5-5.0); ANION GAP 11 mEq/L (8-16); ATYPICAL LYMPHOCYTE FLAG 60 (0-99); CALCIUM 8.7 mg/dL (8.5-10.4); CARBON DIOXIDE 17 mEq/l (22-31); CHLORIDE 102 mEq/L (97-110); FRAGMENT RBC FLAG 0 (0-99); GLOMERULAR FILTRATION RATE 9; GLUCOSE 165 mg/dL (70-100); HEMOGLOBIN 8.9 g/dL (13.7-17.5); LEFT SHIFT FLG 50 (0-99); LIPEMIA HEMOLYSIS FLAG 80 (0-99); MEAN CELL HEMOGLOBIN 29.9 pg (27.9-34.1); MEAN CELL VOLUME 90.6 fL (81.5-99.8); MEAN PLATELET VOLUME 10.1 fL (8.7-11.7); PLATELET CLUMPS FLAG 0 (0-99); PLATELET COUNT 257 10^3/uL (150-400); POTASSIUM 4.9 mEq/L (3.5-5.2); RED BLOOD CELL COUNT 2.98 10^6/uL (4.40-6.38); RED CELL DISTRIBUTION WIDTH 14.6 % (11.5-15.2); SODIUM 130 mEq/L (134-144)
[2017-06-26 06:06] LABS: ECHINOCYTES 1+; PLATELET ESTIMATE ADEQUATE (ADEQ)
[2017-06-26] MEDS: methylPREDNISolone SOD SUCC 125 MG/2 ML VIAL IVP SCH ×3 (06:38→20:10)
[2017-06-26] MEDS: HEPARIN 5,000 UNIT/0.5 ML SYR SC SCH ×3 (06:39→21:43)
[2017-06-26] MEDS: INSULIN LISPRO 100 UNIT/ML SC SCH ×3 (07:34→18:40)
[2017-06-26] MEDS: ACETAMINOPHEN 325 MG TAB PO PRN ×2 (08:44→18:41)
[2017-06-26] MEDS: FAMOTIDINE 20 MG/NACL 50 ML IV SCH (08:45)
--- NOTE | 2017-06-26 09:05 | SOAPPROG ---
SOAP Progress Note Assessment/Plan: Assessment/Plan: * Allergic reaction-secondary to vancomycin. * Acute renal failure-creatinine is mostly unchanged. -follow closely. Continue hydration * Recent total knee arthroplasty * Infected knee-per Infectious Disease * Diabetes-blood sugars under control * VT prophylaxis Subjective: Resting comfortably. Denies any pain. Objective: Vital Signs Temp Pulse Resp BP Pulse Ox 37.1 C 81 26 H 131/58 H 95 06/25/17 23:58 06/26/17 04:00 06/26/17 04:00 06/26/17 04:00 06/26/17 04:00 Laboratory Results 06/26/17 04:40 06/26/17 04:40 06/25/17 06/26/17 06/27/17 05:59 05:59 05:59 Intake Total 927 450 Output Total 1350 975 Balance -423 -525 PT 15.9 SEC (12.0-15.0) H 06/20/17 03:20 INR 1.27 (0.83-1.16) H 06/20/17 03:20 Physical Exam - Physical Exam General Appearance: WD/WN, alert, mild distress EENT: PERRL/EOMI, normal ENT inspection Neck: non-tender, full range of motion, supple, normal inspection Respiratory: chest non-tender, lungs clear, normal breath sounds Cardiac/Chest: normal peripheral pulses, regular rate, rhythm Peripheral Pulses: 2+: carotid (R), carotid (L), femoral (R), femoral (L), dorsalis-pedis (R), dorsalis-pedis (L) Abdomen: normal bowel sounds, non-tender, soft Male Genitalia: deferred Rectal: deferred Extremities: normal range of motion, non-tender, normal inspection, normal capillary refill Neuro/Psych: alert, oriented x 3 ICD10 Worksheet Patient Problems: Problems Problem Status Onset Acute renal failure Acute Fever Acute Hyponatremia Acute Arthritis of right knee Acute
--- NOTE | 2017-06-26 10:06 | SOAPPROG ---
SOAP Progress Note Assessment/Plan: Assessment:Plan: Facial Edema-severe allergic reaction presumed to be from Vanco -worsening rash -fever -given solumedrol famotidine and diphenhydramine -responding well -vanco level coming down -given clinical improvement and decline in vanco level, I do not feel dialysis is indicated OPAL-due to vanco toxicity -he remains non-oliguric with no significant electrolytes abnormalities, which would be typical of this injury -hydrate Volume overload-resolved -urine Na now low -will give MIVF to aid in clearing vanco Anemia-stable 06/26/17 10:03 Subjective: up in chair Objective: Vital Signs Temp Pulse Resp BP Pulse Ox 37.1 C 81 26 H 131/58 H 95 06/25/17 23:58 06/26/17 04:00 06/26/17 04:00 06/26/17 04:00 06/26/17 04:00 Laboratory Results 06/26/17 04:40 06/26/17 04:40 06/25/17 06/26/17 06/27/17 05:59 05:59 05:59 Intake Total 927 450 Output Total 1350 975 Balance -423 -525 PT 15.9 SEC (12.0-15.0) H 06/20/17 03:20 INR 1.27 (0.83-1.16) H 06/20/17 03:20 Physical Exam - Physical Exam General Appearance: alert, no apparent distress, obese EENT: other (facial edema better) Neck: normal inspection Respiratory: lungs clear, normal breath sounds, No respiratory distress Cardiac/Chest: regular rate, rhythm, No diastolic murmur, No systolic murmur Abdomen: normal bowel sounds, non-tender, soft, No hepatomegaly, No splenomegaly Skin: warm/dry, rash (improved) Extremities: No swelling (decreased) Neuro/Psych: no motor/sensory deficits, alert, normal mood/affect, other ([place]) ICD10 Worksheet Patient Problems: Problems Problem Status Onset Acute renal failure Acute Fever Acute Hyponatremia Acute Arthritis of right knee Acute
[2017-06-26] MEDS: NS 1,000 ML IV SCH ×2 (10:15→18:40)
--- NOTE | 2017-06-26 11:07 | HOSPPROG ---
Hospitalist Progress Note Assessment/Plan: 71 male admitted with vancomycin nephrotoxicity and allergic symptoms, transferred to ICU 06/25 with worsening allergic symptoms. # Severe drug hypersensitivity / DRESS with extensive drug rash, facial edema and fever - Suspect Vancomycin is the culprit in the setting of poor clearance with renal failure. Symptoms improving today. Vanc levels decreasing. No dialysis planned per nephrology. -Will wean IV Solumedrol to q8h -Cont benadryl, H2 roland -dc'd statin (received different statin here), robaxin, and other new meds -lithographic photographer apprentice is following -cont ICU monitoring for now # Acute hypoxemic respiratory failure - Was requiring 6 LPM, now on room air. Consider pneumonitis given above, though pt was likely atelectatic given sedation with Benadryl. CXR without edema or infiltrate. # OPAL - Nephrotoxicity from Vancomycin, plus patient was on FAY and NSAID's, both of which have been held since admission. Renal following. Deferring dialysis at this time given severe allergic reaction as above, levels now trending down. UOP improved. -renal following, appreciate assistance -avoid further nephrotoxic agents # S/P TKA 05/23/[address] Hernandez - had wound dehiscence post-op down to joint space and treated for joint infection with Vancomycin. No e/o wound infection at this time. Vanc d/c'd on admission. # Blood loss anemia - Apparently had significant blood loss during dehiscence episode. Hgb now stable ~10. # Leukocytosis - suspect due to steroids, monitor. # Hypertension - BP's 110's, holding lisinopril as above # DM - Holding Metformin in setting of OPAL. -cont SSI # Full code # Dispo - cont inpt, ICU care # DVT PPLX - Heparin Subjective: Pt feels much better. Facial swelling mostly resolved. Denies CP, SOB. No fevers/chills. Objective: Vital Signs Temp Pulse Resp BP Pulse Ox 37.1 C 81 26 H 131/58 H 95 06/25/17 23:58 06/26/17 04:00 06/26/17 04:00 06/26/17 04:00 06/26/17 04:00 Laboratory Results 06/26/17 04:40 06/26/17 04:40 06/25/17 06/26/17 06/27/17 05:59 05:59 05:59 Intake Total 927 450 Output Total 1350 975 Balance -423 -525 PT 15.9 SEC (12.0-15.0) H 06/20/17 03:20 INR 1.27 (0.83-1.16) H 06/20/17 03:20 - Physical Exam Constitutional: no apparent distress Eyes: PERRL Ears, Nose, Mouth, Throat: moist mucous membranes Cardiovascular: regular rate and rhythym Respiratory: no respiratory distress Gastrointestinal: normoactive bowel sounds, soft, non-tender abdomen Skin: warm Musculoskeletal: full muscle strength Neurologic: AAOx3 Psychiatric: interacting appropriately ICD10 Worksheet Patient Problems: Problems Problem Status Onset Acute renal failure Acute Fever Acute Hyponatremia Acute Arthritis of right knee Acute
--- NOTE | 2017-06-26 11:23 | GCON ---
[f rep st] CONSULTATION ENT CONSULTATION NOTE DATE OF CONSULTATION: 06/26/2017 REASON FOR CONSULTATION: Hearing change in the setting of vancomycin reaction. HISTORY OF PRESENT ILLNESS: The patient is a 71-year-old male seen in consultation for allergy/reaction to vancomycin. During the course of his treatment, it was noted that his hearing had decreased. At baseline he does wear hearing aids and has what he describes as likely a sensorineural hearing loss. He states his hearing aids have been more difficult to use as he has had some ear and ear canal swelling and his ears have been quite sensitive. Thus, he has not been wearing his hearing aids. Has a history of bilateral myringotomy with tubes about 10 years ago for eustachian tube dysfunction. He does feel that his hearing is slightly worse on the left. He denies vertigo, otorrhea. He does have some baseline tinnitus. REVIEW OF SYSTEMS: HEENT: As above, negative otherwise. PAST MEDICAL HISTORY: Reviewed. HOME MEDICATIONS: Reviewed. Current hospital medications: P.r.n. Tylenol, p.r.n. albuterol, p.r.n. alteplase, p.r.n. dextrose, diphenhydramine, famotidine , heparin, insulin, methylprednisolone, montelukast p.r.n., ondansetron p.r.n. PHYSICAL EXAM: VITAL SIGNS: Blood pressure 131/58, heart rate 81, O2 saturation 95% on room air, respiratory rate of 26. GENERAL: Alert, interactive, no acute distress. GENERAL HEAD AND FACE: Normocephalic, atraumatic with generally symmetric facial features. EARS: Bilateral pinnae mildly tender to palpation. Canals mildly tender to palpation but both pinnae and canals are nonerythematous. The left canal with minimal cerumen and only some mild squamous debris. Otherwise, clear without fluid. Tympanic membrane has mild tympanosclerosis preventing good visualization into the middle ear. Otherwise, normal tympanic membrane morphology. Right pinna is mildly tender but nonerythematous as is the canal. Otoscopy again shows only mild squamous debris and minimal cerumen. Tympanic membrane shows evidence of some mild tympanosclerosis that prevents good visualization into the middle ear. Eden goes to the left. Bilateral Rinne are negative. NOSE: Anterior rhinoscopy shows normal septal and turbinate anatomy with minimal crusting. OP/OC: Clear with no evidence of masses or lesions. NECK: Full but supple without palpable mass or adenopathy. NEURO: Cranial nerves 2-12 are grossly intact. ASSESSMENT AND PLAN: A 71-year-old male with concerns of increased hearing loss since his recent medication reaction. In reviewing the literature, vancomycin ototoxicity is exceedingly rare and its existence is even somewhat controversial. Often reports of this can be linked to aminoglycoside toxicity with gentamicin concomitantly given with the vancomycin. As far as I can tell from his record, he has not had gentamicin during this course of illness. Moreover, I suspect that he has eustachian tube dysfunction related to soft tissue swelling and that this has caused some fluid and/or pressure in his middle ear, especially at the left to cause these symptoms. This is evidenced on today's exam by a Eden tuning fork exam going to the left, indicating a conductive hearing loss. Unfortunately, I do not have his prior audiograms and he has not had an audiogram he states in more than 2 years. Were it actually a case of vancomycin ototoxicity, the usual recommendation would be for steroid taper. Fortunately, he is already receiving steroids. I recommend that he follow up for a full audiogram with tympanometry following his discharge. Should you have any further questions or concerns, please not hesitate to contact me at my cell phone. I am at [phone]. /[id number]/MODL MTDD
--- NOTE | 2017-06-26 14:08 | PCMIDPN ---
Assessment/Plan: Assessment/Plan: * Acute nephrotoxicity likely associated with vancomycin nephrotoxicity: Creatinine remains stable and appears to have plateaued. Continue Nephrology follow-up. * Left total knee arthroplasty wound dehiscence with penetration to joint: Given persistent vancomycin levels and significant associated toxicity will consider treatment course complete once his levels dissipate and will not plan to embark on oral therapy with doxycycline. * Fever, rash, eosinophilia, increased LFTs: Worsening rash, eosinophilia and development of increased LFTs over weekend consistent with DRESS syndrome. Clinically improved with higher dose steroids in the form of Solu-Medrol. Discussed with Nephrology consideration of dialysis to remove vancomycin to avoid ongoing toxicity but given improvement will continue to monitor with steroids alone. Vancomycin level is slowly decreasing. Clinical findings and plan reviewed with patient, family, Nephrology, and Dr. Bourgeois. 06/26/17 14:05 Subjective: Feels much improved this morning. Facial swelling has significantly decreased. No longer dyspneic. Weekend events reviewed and noted. Objective: Vital Signs Temp Pulse Resp BP Pulse Ox 37.1 C 79 18 119/60 98 06/26/17 12:00 06/26/17 12:00 06/26/17 12:00 06/26/17 12:00 06/26/17 12:00 Laboratory Results 06/26/17 04:40 06/26/17 04:40 06/25/17 06/26/17 06/27/17 05:59 05:59 05:59 Intake Total 927 450 Output Total 1350 975 Balance -423 -525 Solu-Medrol # 2, steroids # 5 Laboratory Tests 06/26/17 08:50 Vancomycin Trough 16.8 - Physical Exam General Appearance: alert, no apparent distress EENT: other (No conjunctival injection or oral ulcerations), No scleral icterus Respiratory: lungs clear, No respiratory distress Cardiac/Chest: regular rate, rhythm Extremities: other (Left knee incision healing well without erythema or drainage ) Abdomen: non-tender, No distended Skin: rash (More prominent rash over abdomen, chest, and back with some involvement of anterior thighs) Neuro/Psych: alert ICD10 Worksheet Patient Problems: Problems Problem Status Onset Acute renal failure Acute Fever Acute Hyponatremia Acute Arthritis of right knee Acute
[2017-06-27] MEDS: ACETAMINOPHEN 325 MG TAB PO PRN ×2 (00:28→21:03)
[2017-06-27] MEDS: methylPREDNISolone SOD SUCC 125 MG/2 ML VIAL IVP SCH ×4 (03:13→21:04)
[2017-06-27] MEDS: HEPARIN 5,000 UNIT/0.5 ML SYR SC SCH ×3 (06:02→21:10)
[2017-06-27 06:13] LABS: ADD DIFF? YES; ADD MORPH? NO; ADD SCAN? NO; ATYPICAL LYMPHOCYTE FLAG 60 (0-99); FRAGMENT RBC FLAG 0 (0-99); HEMATOCRIT 24.8 % (40.0-51.0); HEMOGLOBIN 8.4 g/dL (13.7-17.5); LEFT SHIFT FLG 20 (0-99); LIPEMIA HEMOLYSIS FLAG 90 (0-99); MEAN CELL HEMOGLOBIN 30.5 pg (27.9-34.1); MEAN CELL HEMOGLOBIN CONCENTR. 33.9 g/dL (32.4-36.7); MEAN CELL VOLUME 90.2 fL (81.5-99.8); MEAN PLATELET VOLUME 10.2 fL (8.7-11.7); PLATELET CLUMPS FLAG 10 (0-99); PLATELET COUNT 286 10^3/uL (150-400); RED BLOOD CELL COUNT 2.75 10^6/uL (4.40-6.38); RED CELL DISTRIBUTION WIDTH 14.6 % (11.5-15.2)
[2017-06-27 06:34] LABS: ALBUMIN 2.4 g/dL (3.5-5.0); ANION GAP 10 mEq/L (8-16); CALCIUM 8.3 mg/dL (8.5-10.4); CARBON DIOXIDE 17 mEq/l (22-31); CHLORIDE 102 mEq/L (97-110); CREATININE 5.6 mg/dL (0.7-1.3); GLOMERULAR FILTRATION RATE 10; GLUCOSE 155 mg/dL (70-100); POTASSIUM 4.7 mEq/L (3.5-5.2); SODIUM 129 mEq/L (134-144)
[2017-06-27 06:39] LABS: VANCOMYCIN RANDOM LEVEL 13.6 mcg/mL (0.0-40.0)
[2017-06-27 06:41] LABS: PLATELET ESTIMATE ADEQUATE (ADEQ); TOXIC VACUOLIZATION PRESENT
[2017-06-27 06:42] LABS: MICROCYTES 1+
[2017-06-27] MEDS: INSULIN LISPRO 100 UNIT/ML SC SCH ×3 (07:31→18:14)
[2017-06-27] MEDS: FAMOTIDINE 20 MG/NACL 50 ML IV SCH (07:31)
--- NOTE | 2017-06-27 08:51 | PCMIDPN ---
Assessment/Plan: Assessment/Plan: 1. Acute nephrotoxicity likely associated with vancomycin nephrotoxicity: -Creatinine improving slowly. -Appreciate nephrology. 2. Left total knee arthroplasty wound dehiscence with penetration to joint: -persistent vancomycin levels, no plans for additional antibiotics 3. DRESS syndrome secondary to Vancomycin: -Clinically improved with higher dose steroids in the form of Solu-Medrol. - Vancomycin level decreasing. -Rash is still peaking -Update , patient on lab results, likely expected clinical course, plan of care. Subjective: Afebrile. Feeling better. Denies sob, cough, phlegm. Denies abd pain, diarrhea. Rash all over. itching better, no pain. at bedside. Objective: Vital Signs Temp Pulse Resp BP Pulse Ox 36.7 C 72 20 136/65 H 98 06/27/17 07:27 06/27/17 07:27 06/27/17 07:27 06/27/17 07:27 06/27/17 07:27 Laboratory Results 06/27/17 05:55 06/27/17 05:56 06/26/17 06/27/17 06/28/17 05:59 05:59 05:59 Intake Total 450 2000 150 Output Total 975 Balance -525 2000 150 - Physical Exam General Appearance: alert, no apparent distress Respiratory: lungs clear Cardiac/Chest: regular rate, rhythm Extremities: No swelling Abdomen: normal bowel sounds, non-tender, soft, No distended Skin: erythema (diffuse mp rash all over, from face, down to toes and back. no bullae, blisters, vesicles, pustules, or evidence of desquamation at this time. left LE more involved than right. ) ICD10 Worksheet Patient Problems: Problems Problem Status Onset Acute renal failure Acute Fever Acute Hyponatremia Acute Arthritis of right knee Acute
--- NOTE | 2017-06-27 09:23 | PDINTPN ---
Cart Driver Progress Note Assessment/Plan: Assessment/Plan: * Allergic reaction-secondary to vancomycin. * Acute renal failure-improved -follow closely. Continue hydration * Recent total knee arthroplasty * Infected knee-per Infectious Disease * Diabetes-blood sugars under control * VT prophylaxis * Disposition-okay for transfer to the medical surgical floor Subjective: Resting comfortably. Rash still present but not itchy. Feels markedly improved Objective: Vital Signs Temp Pulse Resp BP Pulse Ox 36.7 C 72 20 136/65 H 98 06/27/17 07:27 06/27/17 07:27 06/27/17 07:27 06/27/17 07:27 06/27/17 07:27 Laboratory Results 06/27/17 05:55 06/27/17 05:56 06/26/17 06/27/17 06/28/17 05:59 05:59 05:59 Intake Total 450 2000 150 Output Total 975 Balance -525 2000 150 PT 15.9 SEC (12.0-15.0) H 06/20/17 03:20 INR 1.27 (0.83-1.16) H 06/20/17 03:20 Physical Exam - Physical Exam General Appearance: alert, no apparent distress EENT: PERRL/EOMI, normal ENT inspection, pharynx normal, TMs normal Neck: non-tender, full range of motion, supple, normal inspection Respiratory: chest non-tender, lungs clear, normal breath sounds Cardiac/Chest: normal peripheral pulses, regular rate, rhythm Abdomen: normal bowel sounds, non-tender, soft Male Genitalia: deferred Rectal: deferred Extremities: normal range of motion, non-tender, normal inspection, normal capillary refill Neuro/Psych: no motor/sensory deficits, alert, normal mood/affect, oriented x 3 ICD10 Worksheet Patient Problems: Problems Problem Status Onset Acute renal failure Acute Fever Acute Hyponatremia Acute Arthritis of right knee Acute
--- NOTE | 2017-06-27 10:32 | SOAPPROG ---
SOAP Progress Note Assessment/Plan: Assessment: 1. Non oliguric ATN in the setting of Vancomycin Cr moving down. Vanco level falling, showing renal clearance. Expect continued, but slow, recovery. 2. Hyponatremia Mild fluid restriction, encourage protein intake 3. Decrease IVF slightly 4. Acidosis Add sodium bicarbonate Plan: 06/27/17 10:29 Subjective: In pretty good spirits Objective: Vital Signs Temp Pulse Resp BP Pulse Ox 36.7 C 72 20 136/65 H 98 06/27/17 07:27 06/27/17 07:27 06/27/17 07:27 06/27/17 07:27 06/27/17 07:27 Laboratory Results 06/27/17 05:55 06/27/17 05:56 06/26/17 06/27/17 06/28/17 05:59 05:59 05:59 Intake Total 450 2000 150 Output Total 975 Balance -525 2000 150 PT 15.9 SEC (12.0-15.0) H 06/20/17 03:20 INR 1.27 (0.83-1.16) H 06/20/17 03:20 Physical Exam - Physical Exam General Appearance: no apparent distress Respiratory: lungs clear Cardiac/Chest: regular rate, rhythm Skin: other (Still with some pruritic rash, but appears much improved) Extremities: pedal edema (trace) Neuro/Psych: oriented x 3 ICD10 Worksheet Patient Problems: Problems Problem Status Onset Acute renal failure Acute Fever Acute Hyponatremia Acute Arthritis of right knee Acute
--- NOTE | 2017-06-27 12:46 | SOAPPROG ---
SOAP Progress Note Assessment/Plan: Assessment: 71 y/o with DRESS syndrome, renal failure secondary to vancomycin toxicity. Sx of acute allergic reaction have abated, fever has declined, mild improvement in creatine however rash has worsened, still no evidence of mucous membrane involvement or vesicles/bulla, eosinophil level better than transfer to ICU at which time it was 2690, but increased from yesterday at 180 to 1340 today. Vanco level declining at 13.6 today. Plan: - recommend increasing steroids back to methylprednisone 60mg IV q 6 hours - continue benadryl as needed - continue famotidine - labs: check lfts, c3, c4, continue to monitor daily eosinophil levels - depending on rash we may need derm consult for skin biopsy - still may need to consider removal of vanco via dialysis depending on clinical picture and continued evaluation of risks/benefits with renals input. 06/27/17 12:47 Subjective: Alo says he feels better this am. no temp overnight. however new/progressing rash noted particularly over left leg, back more red. ROS: eating well Abd: no n/v/d Lungs: no sob COR: no chest pain Objective: Vital Signs Temp Pulse Resp BP Pulse Ox 36.7 C 72 20 136/65 H 98 06/27/17 07:27 06/27/17 07:27 06/27/17 07:27 06/27/17 07:27 06/27/17 07:27 Laboratory Results 06/27/17 05:55 06/27/17 05:56 06/26/17 06/27/17 06/28/17 05:59 05:59 05:59 Intake Total 450 2000 150 Output Total 975 Balance -525 2000 150 PT 15.9 SEC (12.0-15.0) H 06/20/17 03:20 INR 1.27 (0.83-1.16) H 06/20/17 03:20 Physical Exam: Gen: NAD HEENT: Op clear, no lesions COR: rrr Lungs: CTA b/l Abd s/nt Skin: confluent erythema on back, non blanching purpuric appearing rash on left lower extremety > rle - Time Spent With Patient Time Spent With Patient: 20 min ICD10 Worksheet Patient Problems: Problems Problem Status Onset Acute renal failure Acute Fever Acute Hyponatremia Acute Arthritis of right knee Acute
[2017-06-27] MEDS: NS 1,000 ML IV SCH ×2 (13:20→15:26)
--- NOTE | 2017-06-27 17:12 | HOSPPROG ---
Hospitalist Progress Note Assessment/Plan: 71 male admitted with vancomycin nephrotoxicity and allergic symptoms, transferred to ICU 06/25 with worsening allergic symptoms. # Severe drug hypersensitivity / DRESS with extensive drug rash, facial edema and fever - Suspect Vancomycin is the culprit in the setting of poor clearance with renal failure. Edema much improved, though rash more confluent and eos increased. Vanc levels decreasing. No dialysis planned per nephrology. -Per rotary engraver, increase Solumedrol back to 60 mg IV q6h, wean when rash improving -Cont prn benadryl, H2 roland -dc'd statin (received different statin here), robaxin, and other new meds -rotary engraver is following, appreciate assistance # S/P TKA 05/23/[address] Hernandez - had wound dehiscence post-op down to joint space and treated for joint infection with Vancomycin. No e/o wound infection at this time. Vanc d/c'd on admission. No further atbx planned. # OPAL - Nephrotoxicity from Vancomycin, plus patient was on FAY and NSAID's, both of which have been held since admission. Renal following. Deferring dialysis at this time given severe allergic reaction as above, levels now trending down. UOP improved. -renal following, appreciate assistance -avoid further nephrotoxic agents # Acute hypoxemic respiratory failure - Was requiring 6 LPM, now on room air. CXR without edema or infiltrate. ?pneumonitis given above vs hypoventilation in setting of sedating meds during acute decompensation. # NAGMA - sodium bicarb started per renal, follow # Hyponatremia - fluid restriction, NS, follow. # Blood loss anemia - Apparently had significant blood loss during dehiscence episode. Hgb a bit labile, no e/o ongoing bleeding. # Leukocytosis - suspect due to steroids, monitor. # Hypertension - BP's 110's, holding lisinopril as above # DM - Holding Metformin in setting of OPAL. -cont SSI # Full code # Dispo - cont inpt, ICU care, transfer back to med surg today # DVT PPLX - Heparin Subjective: Pt feels better, swelling in face nearly completely resolved, but reports increased redness of rash on legs and abdomen. Not itching (though has been on scheduled benadryl). No fevers. Overall feeling much better. Objective: Vital Signs Temp Pulse Resp BP Pulse Ox 36.9 C 78 18 136/77 H 93 06/27/17 15:47 06/27/17 15:47 06/27/17 15:47 06/27/17 15:47 06/27/17 15:47 Microbiology 06/22/17 10:45 Blood Culture - Final Blood 06/22/17 10:35 Blood Culture - Final Blood Laboratory Results 06/27/17 05:55 06/27/17 05:56 06/26/17 06/27/17 06/28/17 05:59 05:59 05:59 Intake Total 450 1999 1175 Output Total 975 500 Balance -525 1999 675 PT 15.9 SEC (12.0-15.0) H 06/20/17 03:20 INR 1.27 (0.83-1.16) H 06/20/17 03:20 - Physical Exam Constitutional: no apparent distress Eyes: PERRL Ears, Nose, Mouth, Throat: moist mucous membranes Cardiovascular: regular rate and rhythym Respiratory: no respiratory distress, clear to auscultation Gastrointestinal: normoactive bowel sounds, soft, non-tender abdomen Skin: warm, rash (more confluent drug eruption) Neurologic: AAOx3 Psychiatric: interacting appropriately ICD10 Worksheet Patient Problems: Problems Problem Status Onset Acute renal failure Acute Fever Acute Hyponatremia Acute Arthritis of right knee Acute
[2017-06-27] MEDS: SODIUM BICARBONATE 650 MG TAB PO SCH (21:03)
[2017-06-28] MEDS: NS 1,000 ML IV SCH (04:33)
[2017-06-28] MEDS: methylPREDNISolone SOD SUCC 125 MG/2 ML VIAL IVP SCH ×4 (04:37→20:52)
[2017-06-28] MEDS: HEPARIN 5,000 UNIT/0.5 ML SYR SC SCH ×3 (04:39→20:54)
[2017-06-28 04:57] LABS: ADD DIFF? YES; ADD MORPH? NO; FRAGMENT RBC FLAG 0 (0-99); HEMATOCRIT 23.9 % (40.0-51.0); HEMOGLOBIN 7.9 g/dL (13.7-17.5); LEFT SHIFT FLG 40 (0-99); LIPEMIA HEMOLYSIS FLAG 80 (0-99); MEAN CELL HEMOGLOBIN 30.2 pg (27.9-34.1); MEAN CELL HEMOGLOBIN CONCENTR. 33.1 g/dL (32.4-36.7); MEAN CELL VOLUME 91.2 fL (81.5-99.8); MEAN PLATELET VOLUME 10.2 fL (8.7-11.7); PLATELET CLUMPS FLAG 0 (0-99); PLATELET COUNT 337 10^3/uL (150-400); RED BLOOD CELL COUNT 2.62 10^6/uL (4.40-6.38); RED CELL DISTRIBUTION WIDTH 14.7 % (11.5-15.2)
[2017-06-28 05:02] LABS: ADD SCAN? NO; ATYPICAL LYMPHOCYTE FLAG 140 (0-99)
[2017-06-28 05:15] LABS: ALANINE AMINOTRANSFERASE 56 IU/L (21-72); ALBUMIN 2.4 g/dL (3.5-5.0); ALKALINE PHOSPHATASE 47 IU/L (38-126); ANION GAP 12 mEq/L (8-16); ASPARTATE AMINOTRANSFERASE 12 IU/L (17-59); BILIRUBIN,TOTAL 0.3 mg/dL (0.1-1.4); BILIRUBIN-CONJUGATED 0.3 mg/dL (0.0-0.5); CALCIUM 8.1 mg/dL (8.5-10.4); CARBON DIOXIDE 17 mEq/l (22-31); CHLORIDE 104 mEq/L (97-110); CREATININE 5.3 mg/dL (0.7-1.3); GLOMERULAR FILTRATION RATE 11; GLUCOSE 172 mg/dL (70-100); POTASSIUM 4.7 mEq/L (3.5-5.2); SODIUM 133 mEq/L (134-144); TOTAL PROTEIN 4.3 g/dL (6.3-8.2)
[2017-06-28 05:27] LABS: PLATELET ESTIMATE ADEQUATE (ADEQ)
--- NOTE | 2017-06-28 08:31 | HOSPPROG ---
Hospitalist Progress Note Assessment/Plan: The patient is a 71-year-old male with history of hypertension diabetes who underwent a TKA in April 2017. During his recent hospitalization he was treated for prostatic joint infection and discharged home. He was admitted due to elevation in his creatinine. Initially, he was on the med surg floor but transferred to ICU w worsening allergic symptoms on 06/25. He is now back on the med surg floor. Rash is significant on his body, weight is up. #Dress syndrome / Severe drug hypersensitivity extensive drug rash-per his this has worsened vanco level decreasing as of yesterday was 13.6 Solumedrol 60 mg q 6 hours, wean when rash improves prn Benadryl and Pepcid no involvement of mucus membrane appreciate Dr Bourgeois involvement # S/P TKA 05/23/[address] Hernandez - had wound dehiscence post-op down to joint space and treated for joint infection plan is no further abx ambulating well/ knee with minimal swelling # Acute renal failure secondary to vancomycin toxicity, had been on ACEI and & NSAIDS (stopped on admission) avoiding any nephrotoxic agents appreciate renal creat is 5.3/trending down # Acute hypoxemic respiratory failure had been on 6 liters, now room air # NAGMA - sodium bicarb started per renal cont close watching # Hyponatremia - fluid restriction, NS, follow. Na at 133 #weight gain on 06/19 was at 83 kg, today is 94 kg will ask nephrology to evaluate ? Lasix # Blood loss anemia - Apparently had significant blood loss during dehiscence episode. also, could be due to acute illness # Leukocytosis - likely due to steroids, monitor. # Hypertension bp 108/54 # DM - Holding Metformin in setting of OPAL. -cont SSI # Full code # Dispo - cont inpt # DVT PPLX - Heparin Subjective: Pietro is concerned about weight increase, also is uncomfortable due the rash. Objective: Vital Signs Temp Pulse Resp BP Pulse Ox 36.6 C 72 18 131/68 H 95 06/28/17 08:00 06/28/17 08:00 06/28/17 08:00 06/28/17 08:00 06/28/17 08:00 Microbiology 06/22/17 10:45 Blood Culture - Final Blood 06/22/17 10:35 Blood Culture - Final Blood Laboratory Results 06/28/17 04:45 06/28/17 04:45 06/27/17 06/28/17 06/29/17 05:59 05:59 05:59 Intake Total 1999 1914 Output Total 999 Balance 1999 915 PT 15.9 SEC (12.0-15.0) H 06/20/17 03:20 INR 1.27 (0.83-1.16) H 06/20/17 03:20 - Physical Exam Constitutional: uncomfortable Eyes: PERRL Ears, Nose, Mouth, Throat: hearing normal Cardiovascular: regular rate and rhythym Respiratory: no respiratory distress Gastrointestinal: normoactive bowel sounds, distension Skin: warm, rash (erythma, diffuse rash on legs, back abdomen, chest) Musculoskeletal: full muscle strength, no joint effusions Neurologic: AAOx3 Psychiatric: interacting appropriately, not anxious ICD10 Worksheet Patient Problems: Problems Problem Status Onset Acute renal failure Acute Fever Acute Hyponatremia Acute Arthritis of right knee Acute
[2017-06-28] MEDS: INSULIN LISPRO 100 UNIT/ML SC SCH ×3 (09:18→18:15)
[2017-06-28] MEDS: FAMOTIDINE 20 MG/NACL 50 ML IV SCH (09:19)
[2017-06-28] MEDS: SODIUM BICARBONATE 650 MG TAB PO SCH ×2 (09:22→20:51)
--- NOTE | 2017-06-28 11:48 | ASMTCMCOM ---
CM Note CM Note Notes: CM spoke w/ TELLO Webb regarding patient. Pt has Dress syndrome and according to his , his kyra h has worsen. Spoke w/ Ester RN and she reports that pt is on steroid IV. D/C unclear at this time. Spoke w/ PT, and she reports that pt is doing w ell and will be doing therapy 3x a week. Spoke w/ Latasha at [facility]. Latasha spoke w/ and is uncertain if they will continue w/ services. would like pt to have more outpatient PT. CM to follow. Date Signed: 06/28/2017 11:48 AM Electronically Signed By:Fany Rucker
--- NOTE | 2017-06-28 12:22 | SOAPPROG ---
SOAP Progress Note Assessment/Plan: Assessment: 1. OPAL. At this point clinical scenario most c/w AIN related to vanco/DRESS sydrome. Continue solumedrol. Creat improving, now 5.3. 2. DRESS syndrome. Vanc level 13 yesterday. No mucosal lesions. Continue steroids. 3. Acidosis. Stable, continue po HCO3. 4. Edema. Will d/c IVF. 5. Hyponatremia. Mild. D/t#1. Improving. Continue fluid restriction. Plan: 06/22/17 08:35 06/22/17 08:36 06/22/17 08:37 06/22/17 08:38 06/22/17 08:39 06/22/17 08:42 06/22/17 08:46 06/28/17 12:19 06/28/17 12:22 Subjective: Has itching in am, better with benadryl. Feels bloated. Has gained 15 lbs here. No SOB, diarrhea, n/v, jt pains. Objective: Vital Signs Temp Pulse Resp BP Pulse Ox 36.7 C 65 12 150/72 H 94 06/28/17 11:11 06/28/17 11:11 06/28/17 11:11 06/28/17 11:11 06/28/17 11:11 Microbiology 06/22/17 10:45 Blood Culture - Final Blood 06/22/17 10:35 Blood Culture - Final Blood Laboratory Results 06/28/17 04:45 06/28/17 04:45 06/27/17 06/28/17 06/29/17 05:59 05:59 05:59 Intake Total 1999 1914 Output Total 1000 300 Balance 1999 915 -300 PT 15.9 SEC (12.0-15.0) H 06/20/17 03:20 INR 1.27 (0.83-1.16) H 06/20/17 03:20 Diffuse petechial/morbilliform rash over most of body RRR, no m/g/r CTAB Abdom soft, nt 1-2+ LE pitting edema ICD10 Worksheet Patient Problems: Problems Problem Status Onset Arthritis of right knee Acute Acute renal failure Acute Fever Acute Hyponatremia Acute
--- NOTE | 2017-06-28 14:03 | PCMIDPN ---
Assessment/Plan: Assessment/Plan: * Acute nephrotoxicity likely associated with vancomycin nephrotoxicity: Creatinine with continued decrease today. Continue to follow trend and appreciate Nephrology input. Reassess vancomycin level tomorrow. * Left total knee arthroplasty wound dehiscence with penetration to joint: Given persistent vancomycin levels and significant associated toxicity will consider treatment course complete once his levels dissipate and will not plan to embark on oral therapy with doxycycline. * Fever, rash, eosinophilia, increased LFTs consistent with DRESS syndrome: Rash more prominent but overall has improved with high-dose steroids. Eosinophilia count decreased significantly today with Q 6 our Solu-Medrol. Not unusual for rash to worsen prior to seeing signs of improvement. No mucosal involvement. Continue Solu-Medrol and follow clinical course. Anticipate will require prolonged course of steroids for complete and sustained resolution. 06/28/17 14:00 Subjective: Patient feels clinically improved. No knee pain. No oral or genital ulcerations. Complains of scrotal retraction. Objective: Vital Signs Temp Pulse Resp BP Pulse Ox 36.7 C 65 12 150/72 H 94 06/28/17 11:11 06/28/17 11:11 06/28/17 11:11 06/28/17 11:11 06/28/17 11:11 Microbiology 06/22/17 10:45 Blood Culture - Final Blood 06/22/17 10:35 Blood Culture - Final Blood Laboratory Results 06/28/17 04:45 06/28/17 04:45 06/27/17 06/28/17 06/29/17 05:59 05:59 05:59 Intake Total 1999 1915 Output Total 1000 300 Balance 1999 915 -300 Solu-Medrol 60 mg IV Q 6 hours Absolute eosinophil count 360 - Physical Exam General Appearance: alert, no apparent distress EENT: other (No oral ulcerations, no conjunctival injection) Respiratory: lungs clear, No respiratory distress Cardiac/Chest: regular rate, rhythm Extremities: inflammation (Left knee with intact incision line and mild overlying warmth; no drainage) Abdomen: non-tender, No distended Skin: rash (Significantly more prominent macular rash when compared to rash at time of last visit; most prominent over bilateral thighs but also present on back and abdomen) ICD10 Worksheet Patient Problems: Problems Problem Status Onset Acute renal failure Acute Fever Acute Hyponatremia Acute Arthritis of right knee Acute
--- NOTE | 2017-06-28 14:43 | SOAPPROG ---
SOAP Progress Note Assessment/Plan: Assessment: 71 y/o with DRESS syndrome, renal failure secondary to vancomycin toxicity. Rash is worse than yesterday as it has spread over bl le, still no mucous membrane involvment. Creatinine trending downwards. Plan: - continue IV steroids -methylprednisone 60mg IV q 6 hours - if eosinophil level continue to be stable at this dose tomorrow and the rash is stable to improving could consider change the steroids to methylprednisone 40mg IV q6 hours - continue benadryl as needed - continue famotidine - labs: continue to monitor daily eosinophil levels 06/28/17 14:38 Subjective: Alo says he is doing ok today. more itchy today from rash. no oral discomfort. would like to get up and walk around if he can get off of iv fluids. Objective: Vital Signs Temp Pulse Resp BP Pulse Ox 36.7 C 65 12 150/72 H 94 06/28/17 11:11 06/28/17 11:11 06/28/17 11:11 06/28/17 11:11 06/28/17 11:11 Microbiology 06/22/17 10:45 Blood Culture - Final Blood 06/22/17 10:35 Blood Culture - Final Blood Laboratory Results 06/28/17 04:45 06/28/17 04:45 06/27/17 06/28/17 06/29/17 05:59 05:59 05:59 Intake Total 1999 1915 Output Total 1000 300 Balance 1999 915 -300 PT 15.9 SEC (12.0-15.0) H 06/20/17 03:20 INR 1.27 (0.83-1.16) H 06/20/17 03:20 Gen: nad HEENT: mmm, no ulcerations Derm: diffuse mac/pap rash, non blanching, dryness with scaling of skin on face Resp: normal effort Ext no le edema ICD10 Worksheet Patient Problems: Problems Problem Status Onset Acute renal failure Acute Fever Acute Hyponatremia Acute Arthritis of right knee Acute
[2017-06-28] MEDS: ACETAMINOPHEN 325 MG TAB PO PRN (20:51)
[2017-06-29] MEDS: methylPREDNISolone SOD SUCC 125 MG/2 ML VIAL IVP SCH ×4 (05:54→21:27)
[2017-06-29] MEDS: HEPARIN 5,000 UNIT/0.5 ML SYR SC SCH ×3 (05:56→21:28)
[2017-06-29 06:16] LABS: ADD DIFF? YES; ADD MORPH? NO; FRAGMENT RBC FLAG 0 (0-99); HEMATOCRIT 25.3 % (40.0-51.0); HEMOGLOBIN 8.4 g/dL (13.7-17.5); LEFT SHIFT FLG 60 (0-99); LIPEMIA HEMOLYSIS FLAG 80 (0-99); MEAN CELL HEMOGLOBIN 30.2 pg (27.9-34.1); MEAN CELL HEMOGLOBIN CONCENTR. 33.2 g/dL (32.4-36.7); MEAN PLATELET VOLUME 9.7 fL (8.7-11.7); PLATELET CLUMPS FLAG 0 (0-99); PLATELET COUNT 379 10^3/uL (150-400); RED BLOOD CELL COUNT 2.78 10^6/uL (4.40-6.38); RED CELL DISTRIBUTION WIDTH 14.8 % (11.5-15.2)
[2017-06-29 06:17] LABS: ADD SCAN? NO; ATYPICAL LYMPHOCYTE FLAG 140 (0-99)
[2017-06-29 06:49] LABS: ALANINE AMINOTRANSFERASE 68 IU/L (21-72); ALBUMIN 2.8 g/dL (3.5-5.0); ALKALINE PHOSPHATASE 52 IU/L (38-126); ANION GAP 12 mEq/L (8-16); ASPARTATE AMINOTRANSFERASE 23 IU/L (17-59); BILIRUBIN,TOTAL 0.4 mg/dL (0.1-1.4); BILIRUBIN-CONJUGATED 0.3 mg/dL (0.0-0.5); BILIRUBIN-UNCONJUGATED 0.1 mg/dL (0.0-1.1); CALCIUM 8.4 mg/dL (8.5-10.4); CARBON DIOXIDE 19 mEq/l (22-31); CHLORIDE 105 mEq/L (97-110); CREATININE 5.1 mg/dL (0.7-1.3); GLOMERULAR FILTRATION RATE 11; GLUCOSE 167 mg/dL (70-100); POTASSIUM 4.6 mEq/L (3.5-5.2); SODIUM 136 mEq/L (134-144); TOTAL PROTEIN 4.9 g/dL (6.3-8.2)
[2017-06-29 07:01] LABS: VANCOMYCIN RANDOM LEVEL 9.3 mcg/mL (0.0-40.0)
[2017-06-29 07:05] LABS: PLATELET ESTIMATE ADEQUATE (ADEQ)
[2017-06-29] MEDS: SODIUM BICARBONATE 650 MG TAB PO SCH ×2 (09:00→22:31)
[2017-06-29] MEDS: INSULIN LISPRO 100 UNIT/ML SC SCH ×3 (09:00→18:18)
[2017-06-29] MEDS: FAMOTIDINE 20 MG/NACL 50 ML IV SCH (09:03)
--- NOTE | 2017-06-29 11:01 | SOAPPROG ---
SOAP Progress Note Assessment/Plan: Assessment: 1. Non oliguric ATN in the setting of Vancomycin Cr improving. Volume status ok. 2. Hyponatremia Resolved. DC fluid restriction. 3. High BUN He is drinking protein drinks, he will reduce these. 4. Acidosis On sodium bicarbonate Subjective: Doing pretty well Objective: Vital Signs Temp Pulse Resp BP Pulse Ox 37.1 C 73 20 124/65 H 94 06/29/17 08:00 06/29/17 08:00 06/29/17 08:00 06/29/17 08:00 06/29/17 08:00 Laboratory Results 06/29/17 06:00 06/29/17 06:00 06/28/17 06/29/17 06/30/17 05:59 05:59 05:59 Intake Total 1915 500 Output Total 1000 1250 Balance 915 -750 PT 15.9 SEC (12.0-15.0) H 06/20/17 03:20 INR 1.27 (0.83-1.16) H 06/20/17 03:20 Physical Exam - Physical Exam General Appearance: no apparent distress Respiratory: lungs clear Cardiac/Chest: regular rate, rhythm Extremities: pedal edema Neuro/Psych: oriented x 3 ICD10 Worksheet Patient Problems: Problems Problem Status Onset Acute renal failure Acute Fever Acute Hyponatremia Acute Arthritis of right knee Acute
--- NOTE | 2017-06-29 15:40 | HOSPPROG ---
Hospitalist Progress Note Assessment/Plan: The patient is a 71-year-old male with history of hypertension diabetes who underwent a TKA in April 2017. During his recent hospitalization he was treated for prostatic joint infection and discharged home. He was admitted due to elevation in his creatinine. Initially, he was on the med surg floor but transferred to ICU w worsening allergic symptoms on 06/25. He is now back on the med surg floor. He is slowly improving. #Dress syndrome / Severe drug hypersensitivity extensive drug rash- vanco level decreasing/it's 9.3 today Solumedrol 60 mg q 6 hours, wean when rash improves prn Benadryl and Pepcid no involvement of mucus membrane appreciate Dr Bourgeois involvement rash improving on his back area # S/P TKA 05/23/[address] Hernandez - had wound dehiscence post-op down to joint space and treated for joint infection plan is no further abx ambulating well/ knee with minimal swelling # Acute renal failure secondary to vancomycin toxicity, had been on ACEI and & NSAIDS (stopped on admission) avoiding any nephrotoxic agents appreciate renal creat is 5.o/trending down # Acute hypoxemic respiratory failure resolved # acidosis - sodium bicarb started per renal cont close watching # Hyponatremia - spoke w Dr Tucker and will lift fluid restriction #weight gain no sig change since yesterday # Blood loss anemia - Apparently had significant blood loss during dehiscence episode. also, could be due to acute illness # Leukocytosis - likely due to steroids, monitor. # Hypertension bp 151/80 # DM - Holding Metformin in setting of OPAL. -cont SSI # Full code # Dispo - cont inpt # DVT PPLX - Heparin Subjective: Pietro is starting to feel better/ he feels rash is improving. Objective: Vital Signs Temp Pulse Resp BP Pulse Ox 36.6 C 64 16 151/80 H 97 06/29/17 15:34 06/29/17 15:34 06/29/17 15:34 06/29/17 15:34 06/29/17 15:34 Laboratory Results 06/29/17 06:00 06/29/17 06:00 06/28/17 06/29/17 06/30/17 05:59 05:59 05:59 Intake Total 1915 500 Output Total 1000 1250 Balance 915 -750 PT 15.9 SEC (12.0-15.0) H 06/20/17 03:20 INR 1.27 (0.83-1.16) H 06/20/17 03:20 - Physical Exam Constitutional: appears nourished, not in pain Eyes: PERRL Ears, Nose, Mouth, Throat: hearing normal Respiratory: no respiratory distress Skin: rash (scattered rash that doesn't flaquito/ extensive on legs, but looks improved on his back area) Musculoskeletal: generalized weakness Neurologic: AAOx3 Psychiatric: interacting appropriately, not anxious ICD10 Worksheet Patient Problems: Problems Problem Status Onset Acute renal failure Acute Fever Acute Hyponatremia Acute Arthritis of right knee Acute
--- NOTE | 2017-06-29 16:51 | ASMTCMCOM ---
CM Note CM Note Notes: Spoke w/RN, does not think pt will need homecare, CM attempted to speak w/pt but he was asleep. Anticipate pt will dc home w/support of when medically stable. CM available for any changes. Date Signed: 06/29/2017 04:50 PM Electronically Signed By:Inocencia Callahan
[2017-06-29 17:08] LABS: C3 COMPLEMENT COMPONENT 72 mg/dL (75 - 175); C4 COMPLEMENT COMPONENT 10 mg/dL (14 - 40)
--- NOTE | 2017-06-29 18:17 | SOAPPROG ---
SOAP Progress Note Assessment/Plan: Assessment: 71 y/o with DRESS syndrome, renal failure secondary to vancomycin toxicity. eos stable, creatinine and vanco level trending downwards, rash w/o signficant change. Plan: - continue IV steroids -methylprednisone 60mg IV q 6 hours - if eosinophil level continue to be stable at this dose tomorrow and the rash is stable to improving could consider change the steroids to methylprednisone 40mg IV q6 hours - continue benadryl as needed - continue famotidine - labs: continue to monitor daily eosinophil levels 06/29/17 18:14 Subjective: doing ok, rash still present. no blistering in mouth. c/o fatigue after steroid is adminstered Objective: Vital Signs Temp Pulse Resp BP Pulse Ox 36.6 C 64 16 151/80 H 97 06/29/17 15:34 06/29/17 15:34 06/29/17 15:34 06/29/17 15:34 06/29/17 15:34 Laboratory Results 06/29/17 06:00 06/29/17 06:00 06/28/17 06/29/17 06/30/17 05:59 05:59 05:59 Intake Total 1915 500 Output Total 1000 1250 Balance 915 -750 PT 15.9 SEC (12.0-15.0) H 06/20/17 03:20 INR 1.27 (0.83-1.16) H 06/20/17 03:20 Gen- nad Heent- mmm, no blisters Derm- flaking of skin face/scalp, diffuse non blanching macular rash bl le, palms and back ICD10 Worksheet Patient Problems: Problems Problem Status Onset Acute renal failure Acute Fever Acute Hyponatremia Acute Arthritis of right knee Acute
[2017-06-30] MEDS: methylPREDNISolone SOD SUCC 125 MG/2 ML VIAL IVP SCH ×2 (04:54→09:33)
[2017-06-30] MEDS: HEPARIN 5,000 UNIT/0.5 ML SYR SC SCH ×3 (04:55→21:26)
[2017-06-30 05:18] LABS: ADD DIFF? YES; ADD MORPH? NO; FRAGMENT RBC FLAG 0 (0-99); HEMATOCRIT 24.2 % (40.0-51.0); HEMOGLOBIN 8.1 g/dL (13.7-17.5); LEFT SHIFT FLG 80 (0-99); LIPEMIA HEMOLYSIS FLAG 80 (0-99); MEAN CELL HEMOGLOBIN 30.5 pg (27.9-34.1); MEAN CELL HEMOGLOBIN CONCENTR. 33.5 g/dL (32.4-36.7); PLATELET CLUMPS FLAG 0 (0-99); PLATELET COUNT 372 10^3/uL (150-400); RED BLOOD CELL COUNT 2.66 10^6/uL (4.40-6.38)
[2017-06-30 05:21] LABS: ADD SCAN? NO; ATYPICAL LYMPHOCYTE FLAG 130 (0-99)
[2017-06-30 05:33] LABS: ALANINE AMINOTRANSFERASE 81 IU/L (21-72); ALBUMIN 2.7 g/dL (3.5-5.0); ALKALINE PHOSPHATASE 57 IU/L (38-126); ANION GAP 11 mEq/L (8-16); ASPARTATE AMINOTRANSFERASE 22 IU/L (17-59); BILIRUBIN,TOTAL 0.5 mg/dL (0.1-1.4); BILIRUBIN-CONJUGATED 0.3 mg/dL (0.0-0.5); BILIRUBIN-UNCONJUGATED 0.2 mg/dL (0.0-1.1); CALCIUM 8.4 mg/dL (8.5-10.4); CARBON DIOXIDE 18 mEq/l (22-31); CHLORIDE 104 mEq/L (97-110); CREATININE 4.6 mg/dL (0.7-1.3); GLOMERULAR FILTRATION RATE 13; GLUCOSE 176 mg/dL (70-100); POTASSIUM 4.4 mEq/L (3.5-5.2); SODIUM 133 mEq/L (134-144)
[2017-06-30 05:53] LABS: HYPOCHROMIA 1+; PLATELET ESTIMATE ADEQUATE (ADEQ); POLYCHROMASIA 1+; SPHEROCYTES 1+
[2017-06-30] MEDS: INSULIN LISPRO 100 UNIT/ML SC SCH ×3 (09:28→18:05)
[2017-06-30] MEDS: FAMOTIDINE 20 MG/NACL 50 ML IV SCH (09:30)
[2017-06-30] MEDS: SODIUM BICARBONATE 650 MG TAB PO SCH ×3 (10:05→21:26)
--- NOTE | 2017-06-30 11:14 | PCMIDPN ---
Assessment/Plan: Assessment/Plan: * Acute nephrotoxicity likely associated with vancomycin nephrotoxicity: Continued decrease in creatinine. Continue to follow. * Left total knee arthroplasty wound dehiscence with penetration to joint: Will consider treatment complete at this point as vancomycin slowly dissipating. * Fever, rash, eosinophilia, increased LFTs consistent with DRESS syndrome: Rash starting to resolve with desquamation with underlying intact skin over face , chest and back. Rash over thighs with less intense erythema now. Eosinophils slightly higher today but not significantly. Have reviewed with Dr. Bourgeois, will try to decrease Solu-Medrol to 40 mg IV Q 6 hours with continued monitoring of rash and eosinophil count. 06/30/17 11:11 Subjective: Patient feels better. Solu-Medrol makes and tired. Skin beginning to peel over face, chest and back. No significant associated pruritus. Objective: Vital Signs Temp Pulse Resp BP Pulse Ox 36.9 C 64 20 136/70 H 95 06/30/17 08:00 06/30/17 08:00 06/30/17 08:00 06/30/17 08:00 06/30/17 08:00 Laboratory Results 06/30/17 05:00 06/30/17 05:00 06/29/17 06/30/17 07/01/17 05:59 05:59 05:59 Intake Total 500 100 Output Total 1250 Balance -750 100 Absolute eosinophils 590 Laboratory Tests 06/30/17 05:00 Total Bilirubin 0.5 AST 22 ALT 81 H Alkaline Phosphatase 57 Albumin 2.7 L - Physical Exam General Appearance: alert, no apparent distress, No non-toxic EENT: other (No oral ulcerations or conjunctival injection) Respiratory: lungs clear, No respiratory distress Cardiac/Chest: regular rate, rhythm Abdomen: non-tender, No distended Skin: rash (Macular rash over thighs less prominent/intense erythema; desquamation of skin over face, back and chest with underlying healthy appearing skin; no blisters) ICD10 Worksheet Patient Problems: Problems Problem Status Onset Acute renal failure Acute Fever Acute Hyponatremia Acute Arthritis of right knee Acute
--- NOTE | 2017-06-30 11:29 | SOAPPROG ---
SOAP Progress Note Assessment/Plan: Assessment/Plan: OPAL: in setting of vancomycin, possible AIN. nonoliguric, Cr down to 4.6. - No need for HD. - Pt on steroids. - Will continue to monitor. - Avoid hypotension and nephrotoxins. Metabolic acidosis: in setting of OPAL, will increase sodium bicarb tabs and continue to monitor. Hyponatremia: Na stable at 133, off fluid restriction, will monitor. Azotemia: BUN elevated at 108, likely due to protein intake and steroids in setting of OPAL, hopefully will turn around soon as OPAL improves. Will continue to monitor. Subjective: No acute events overnight. Pt feeling well, hoping to go home soon. Still has swelling in legs. Still has some rash on legs that is mildly itchy. Objective: Vital Signs Temp Pulse Resp BP Pulse Ox 36.9 C 64 20 136/70 H 95 06/30/17 08:00 06/30/17 08:00 06/30/17 08:00 06/30/17 08:00 06/30/17 08:00 Laboratory Results 06/30/17 05:00 06/30/17 05:00 06/29/17 06/30/17 07/01/17 05:59 05:59 05:59 Intake Total 500 100 Output Total 1250 Balance -750 100 PT 15.9 SEC (12.0-15.0) H 06/20/17 03:20 INR 1.27 (0.83-1.16) H 06/20/17 03:20 General: alert and oriented, no acute distress Eyes; EOMI, PERRL OP: Clear CV: RRR Resp: nonlabored respirations on RA Abd: Soft, NT Ext: +1 edema BLE Neuro: CN II-XII grossly intact, no asterixis Psych; cooperative, appropriate mood and affect Skin: macular erythematous rash on legs ICD10 Worksheet Patient Problems: Problems Problem Status Onset Acute renal failure Acute Fever Acute Hyponatremia Acute Arthritis of right knee Acute
[2017-06-30] MEDS ORDERED: methylPREDNISolone SOD SUCC 40 MG/ML VIAL IVP SCH ×2 (12:00→13:30)
[2017-06-30] MEDS: methylPREDNISolone SOD SUCC 40 MG/ML VIAL IVP SCH ×2 (15:35→21:26)
--- NOTE | 2017-06-30 16:32 | HOSPPROG ---
Hospitalist Progress Note Assessment/Plan: The patient is a 71-year-old male with history of hypertension diabetes who underwent a TKA in April 2017. During his recent hospitalization he was treated for prostatic joint infection and discharged home. He was admitted due to elevation in his creatinine. Initially, he was on the med surg floor but transferred to ICU w worsening allergic symptoms on 06/25. He is now back on the med surg floor. He is slowly improving. #Dress syndrome / Severe drug hypersensitivity extensive drug rash- vanco level decreasing/it's 9.3 today Solumedrol decreased to 40 mg q 6 hours, wean when rash improves prn Benadryl and Pepcid no involvement of mucus membrane appreciate Dr Bourgeois involvement rash improving on his back area and right leg # S/P TKA 05/23/[address] Hernandez - had wound dehiscence post-op down to joint space and treated for joint infection plan is no further abx ambulating well/ knee with minimal swelling # Acute renal failure secondary to vancomycin toxicity, had been on ACEI and & NSAIDS (stopped on admission) avoiding any nephrotoxic agents appreciate renal creat is 4.6/trending down # Acute hypoxemic respiratory failure resolved # acidosis - sodium bicarb started per renal/dose was increased cont close watching # Hyponatremia - spoke w Dr Tucker and will lift fluid restriction #weight gain no sig change since yesterday # Blood loss anemia - Apparently had significant blood loss during dehiscence episode. also, could be due to acute illness # Leukocytosis - likely due to steroids, monitor. # Hypertension bp 149/77 # DM - Holding Metformin in setting of OPAL. -cont SSI # Full code # Dispo - cont inpt # DVT PPLX - Heparin Subjective: Pietro is feeling fine, but tired of being in the hospital. Objective: Vital Signs Temp Pulse Resp BP Pulse Ox 36.6 C 80 20 149/77 H 95 06/30/17 14:57 06/30/17 14:57 06/30/17 14:57 06/30/17 14:57 06/30/17 14:57 Laboratory Results 06/30/17 05:00 06/30/17 05:00 06/29/17 06/30/17 07/01/17 05:59 05:59 05:59 Intake Total 500 100 Output Total 1250 Balance -750 100 PT 15.9 SEC (12.0-15.0) H 06/20/17 03:20 INR 1.27 (0.83-1.16) H 06/20/17 03:20 - Physical Exam Constitutional: chronically ill appearing Eyes: PERRL Ears, Nose, Mouth, Throat: hearing normal Cardiovascular: regular rate and rhythym Respiratory: no respiratory distress Gastrointestinal: normoactive bowel sounds Skin: warm, rash (improving overall/ left leg still covered in a non blanching rash) Musculoskeletal: full muscle strength Neurologic: AAOx3 Psychiatric: interacting appropriately ICD10 Worksheet Patient Problems: Problems Problem Status Onset Acute renal failure Acute Fever Acute Hyponatremia Acute Arthritis of right knee Acute
--- NOTE | 2017-06-30 19:23 | SOAPPROG ---
SOAP Progress Note Assessment/Plan: Assessment: 71 y/o with DRESS syndrome, renal failure secondary to vancomycin toxicity. eos non signficantly increased today, creatinine and vanco level trending downwards, rash still signficant but improving. Plan: - continue IV steroids currently on day #1 of methylpred 40mg iv q6, wean as rash improves and if eosinophil level stable - if eosinophil level continue to be stable at this dose tomorrow and the rash is stable to improving could consider change the steroids to methylprednisone 40mg IV q6 hours - continue benadryl as needed - continue famotidine - labs: continue to monitor daily eosinophil levels 06/29/17 18:14 06/30/17 19:19 Subjective: tired after getting steroids injections. notes skin is exfoliating and dry. difficulty sleeping Objective: Vital Signs Temp Pulse Resp BP Pulse Ox 36.6 C 80 20 149/77 H 95 06/30/17 14:57 06/30/17 14:57 06/30/17 14:57 06/30/17 14:57 06/30/17 14:57 Laboratory Results 06/30/17 05:00 06/30/17 05:00 06/29/17 06/30/17 07/01/17 05:59 05:59 05:59 Intake Total 694 658 7349 Output Total 1250 Balance -964 616 9063 PT 15.9 SEC (12.0-15.0) H 06/20/17 03:20 INR 1.27 (0.83-1.16) H 06/20/17 03:20 Derm: skin with superficial exfoliation of scalp, face, back, non blanching erythematous mac/pap rash on bl le L>R, mild diffuse erythema of back ICD10 Worksheet Patient Problems: Problems Problem Status Onset Acute renal failure Acute Fever Acute Hyponatremia Acute Arthritis of right knee Acute
[2017-07-01] MEDS: methylPREDNISolone SOD SUCC 40 MG/ML VIAL IVP SCH ×4 (03:27→21:44)
[2017-07-01] MEDS: HEPARIN 5,000 UNIT/0.5 ML SYR SC SCH ×3 (05:28→21:43)
[2017-07-01 05:58] LABS: ADD DIFF? YES; ADD MORPH? NO; ADD SCAN? NO; ATYPICAL LYMPHOCYTE FLAG 80 (0-99); FRAGMENT RBC FLAG 0 (0-99); HEMATOCRIT 22.9 % (40.0-51.0); HEMOGLOBIN 7.4 g/dL (13.7-17.5); LEFT SHIFT FLG 70 (0-99); LIPEMIA HEMOLYSIS FLAG 80 (0-99); MEAN CELL HEMOGLOBIN 29.5 pg (27.9-34.1); MEAN CELL HEMOGLOBIN CONCENTR. 32.3 g/dL (32.4-36.7); MEAN CELL VOLUME 91.2 fL (81.5-99.8); MEAN PLATELET VOLUME 9.9 fL (8.7-11.7); PLATELET CLUMPS FLAG 40 (0-99); PLATELET COUNT 350 10^3/uL (150-400); RED BLOOD CELL COUNT 2.51 10^6/uL (4.40-6.38); RED CELL DISTRIBUTION WIDTH 14.8 % (11.5-15.2)
[2017-07-01 06:08] LABS: ALANINE AMINOTRANSFERASE 76 IU/L (21-72); ALBUMIN 2.6 g/dL (3.5-5.0); ALKALINE PHOSPHATASE 54 IU/L (38-126); ANION GAP 9 mEq/L (8-16); ASPARTATE AMINOTRANSFERASE 16 IU/L (17-59); BILIRUBIN,TOTAL 0.5 mg/dL (0.1-1.4); BILIRUBIN-CONJUGATED 0.3 mg/dL (0.0-0.5); BILIRUBIN-UNCONJUGATED 0.2 mg/dL (0.0-1.1); CALCIUM 8.4 mg/dL (8.5-10.4); CARBON DIOXIDE 21 mEq/l (22-31); CHLORIDE 104 mEq/L (97-110); CREATININE 4.4 mg/dL (0.7-1.3); GLOMERULAR FILTRATION RATE 13; GLUCOSE 197 mg/dL (70-100); POTASSIUM 4.6 mEq/L (3.5-5.2); SODIUM 134 mEq/L (134-144); TOTAL PROTEIN 4.7 g/dL (6.3-8.2)
[2017-07-01 07:01] LABS: HYPOCHROMIA 1+; PLATELET ESTIMATE ADEQUATE (ADEQ)
[2017-07-01] MEDS: INSULIN LISPRO 100 UNIT/ML SC SCH ×3 (07:52→17:09)
[2017-07-01] MEDS: SODIUM BICARBONATE 650 MG TAB PO SCH ×3 (09:37→21:44)
[2017-07-01] MEDS: FAMOTIDINE 20 MG/NACL 50 ML IV SCH (09:37)
--- NOTE | 2017-07-01 13:27 | PCMIDPN ---
Assessment/Plan: Assessment/Plan: * Acute nephrotoxicity likely associated with vancomycin nephrotoxicity: Continued decrease in creatinine with gradual increase in BUN. Continue to follow. * Left total knee arthroplasty wound dehiscence with penetration to joint: Will consider treatment complete at this point as vancomycin slowly dissipating. * Fever, rash, eosinophilia, increased LFTs consistent with DRESS syndrome: Overall markedly improved with continued desquamation with underlying intact skin over face, chest, and back. Has new bullous lesions over left lower extremity which also appear to have intact skin at base. Suspect these may be related to edema although other considerations would include continuum of Alva-Matthew or linear IgA bullous skin disease with the latter 2 considerations seeming to be less likely to evolve with ongoing corticosteroid management and decreased eosinophilia and in the absence of mucosal membrane involvement. Will continue Solu-Medrol 40 mg IV Q 6 based on this finding with plans to taper if things continue to improve. 07/01/17 13:24 Subjective: Patient feels much better and able to rest more readily on current steroid dose. Notes some blisters have developed over left ankle. No sores in mouth or genitals. Objective: Vital Signs Temp Pulse Resp BP Pulse Ox 36.8 C 58 L 16 146/82 H 98 07/01/17 07:33 07/01/17 07:33 07/01/17 07:33 07/01/17 07:33 07/01/17 07:33 Laboratory Results 07/01/17 05:30 07/01/17 05:30 06/30/17 07/01/17 07/02/17 05:59 05:59 05:59 Intake Total 100 1950 Balance 100 1950 Absolute eosinophils 440 - Physical Exam General Appearance: alert, no apparent distress EENT: other (No conjunctival injection or oral ulcerations) Respiratory: lungs clear, No respiratory distress Cardiac/Chest: regular rate, rhythm, No friction rub Abdomen: non-tender, No distended Skin: rash (Rash over lower extremity significantly less prominent and resolving over abdomen/chest/back; desquamation of skin with intact underlying layer of skin over face, back and chest; several clear bullous lesions over left lower extremity around ankle and lower leg; appear to have intact skin underneath) ICD10 Worksheet Patient Problems: Problems Problem Status Onset Acute renal failure Acute Fever Acute Hyponatremia Acute Arthritis of right knee Acute
--- NOTE | 2017-07-01 14:01 | ASMTCMCOM ---
CM Note CM Note Notes: CM still anticipating independent d/c when ready. CM available should d/c POC change. Date Signed: 07/01/2017 02:00 PM Electronically Signed By:Sandra Meek
--- NOTE | 2017-07-01 14:09 | HOSPPROG ---
Hospitalist Progress Note Assessment/Plan: The patient is a 71-year-old male with history of hypertension diabetes who underwent a TKA in April 2017. During his recent hospitalization he was treated for prostatic joint infection and discharged home. He was admitted due to elevation in his creatinine. Initially, he was on the med surg floor but transferred to ICU w worsening allergic symptoms on 06/25. He is now back on the med surg floor. He is slowly improving. #Dress syndrome / Severe drug hypersensitivity extensive drug rash- vanco level decreasing Solumedrol decreased to 40 mg q 6 hours, wean when rash improves prn Benadryl and Pepcid no involvement of mucus membrane appreciate Dr Bourgeois involvement rash improving on his back area and right leg/ but has some bullous areas on the left ankle area # S/P TKA 05/23/[address] Hernandez - had wound dehiscence post-op down to joint space and treated for joint infection plan is no further abx ambulating well/ knee with minimal swelling # Acute renal failure secondary to vancomycin toxicity, had been on ACEI and & NSAIDS (stopped on admission) avoiding any nephrotoxic agents appreciate renal creat is 4.4/trending down BUN continues to increase # Acute hypoxemic respiratory failure resolved # acidosis - sodium bicarb started per renal/dose was increased cont close watching # Hyponatremia - stable, off fluid restrictions #weight gain cont monitoring # Blood loss anemia - Apparently had significant blood loss during dehiscence episode. also, could be due to acute illness # Leukocytosis - likely due to steroids, monitor. # Hypertension bp 146/82 # DM - Holding Metformin in setting of OPAL. -cont SSI # Full code # Dispo - cont inpt # DVT PPLX - Heparin Subjective: Pietro is feeling better but getting depressed being in the hospital. Objective: Vital Signs Temp Pulse Resp BP Pulse Ox 36.8 C 58 L 16 146/82 H 98 07/01/17 07:33 07/01/17 07:33 07/01/17 07:33 07/01/17 07:33 07/01/17 07:33 Laboratory Results 07/01/17 05:30 07/01/17 05:30 06/30/17 07/01/17 07/02/17 05:59 05:59 05:59 Intake Total 100 1950 Balance 100 1950 PT 15.9 SEC (12.0-15.0) H 06/20/17 03:20 INR 1.27 (0.83-1.16) H 06/20/17 03:20 - Physical Exam Constitutional: appears nourished, not in pain Eyes: PERRL Ears, Nose, Mouth, Throat: hearing normal Cardiovascular: regular rate and rhythym Respiratory: no respiratory distress Gastrointestinal: normoactive bowel sounds Skin: other (rash overall improving/has multiple bullous (clear) on the left ankle area, left calf) Musculoskeletal: full muscle strength Neurologic: AAOx3 Psychiatric: interacting appropriately, not anxious ICD10 Worksheet Patient Problems: Problems Problem Status Onset Acute renal failure Acute Fever Acute Hyponatremia Acute Arthritis of right knee Acute
--- NOTE | 2017-07-01 15:02 | SOAPPROG ---
SOAP Progress Note Assessment/Plan: Assessment: 1)OPAL, non-oliguric -felt related anco, NSAIDS, may have had AIN component -Cr improving, good UOP. BUN out of proportion (steroids likely contributing)- follow -taking good po 2)Edema- mobilizing edema not that Cr improving, monitor blister lesions 3)DRES- improving, tapering steroids 4)s/ L TKR 05/23/17 with exposed hardware, completed abx 5)Met acidosis- can decrease dose of bicarb as level now 21, GFR improving, and contributing to edema 6)high phos- monitor, may need to restrict diet if worse 07/01/17 18:01 Objective: Vital Signs Temp Pulse Resp BP Pulse Ox 36.8 C 58 L 16 146/82 H 98 07/01/17 07:33 07/01/17 07:33 07/01/17 07:33 07/01/17 07:33 07/01/17 07:33 Laboratory Results 07/01/17 05:30 07/01/17 05:30 06/30/17 07/01/17 07/02/17 05:59 05:59 05:59 Intake Total 100 1950 Balance 100 1950 PT 15.9 SEC (12.0-15.0) H 06/20/17 03:20 INR 1.27 (0.83-1.16) H 06/20/17 03:20 Physical Exam - Physical Exam General Appearance: no apparent distress, other (sitting in chair comfortably) EENT: other (mmm) Neck: supple Respiratory: other (faint crackles bases bilat) Cardiac/Chest: regular rate, rhythm Abdomen: normal bowel sounds, non-tender, soft Skin: other (scaly rash diffusely) Extremities: other (++edema bilat, blister lesions on L ankle- no signs infection) Neuro/Psych: alert, oriented x 3 ICD10 Worksheet Patient Problems: Problems Problem Status Onset Acute renal failure Acute Fever Acute Hyponatremia Acute Arthritis of right knee Acute
[2017-07-02] MEDS: methylPREDNISolone SOD SUCC 40 MG/ML VIAL IVP SCH ×3 (03:24→17:31)
[2017-07-02] MEDS: HEPARIN 5,000 UNIT/0.5 ML SYR SC SCH ×3 (05:14→20:47)
[2017-07-02 05:37] LABS: ADD DIFF? YES; ADD MORPH? NO; ADD SCAN? NO; ATYPICAL LYMPHOCYTE FLAG 60 (0-99); FRAGMENT RBC FLAG 0 (0-99); HEMATOCRIT 22.7 % (40.0-51.0); HEMOGLOBIN 7.6 g/dL (13.7-17.5); LEFT SHIFT FLG 80 (0-99); LIPEMIA HEMOLYSIS FLAG 80 (0-99); MEAN CELL HEMOGLOBIN 30.3 pg (27.9-34.1); MEAN CELL HEMOGLOBIN CONCENTR. 33.5 g/dL (32.4-36.7); MEAN CELL VOLUME 90.4 fL (81.5-99.8); MEAN PLATELET VOLUME 9.8 fL (8.7-11.7); PLATELET CLUMPS FLAG 0 (0-99); PLATELET COUNT 355 10^3/uL (150-400); RED BLOOD CELL COUNT 2.51 10^6/uL (4.40-6.38); RED CELL DISTRIBUTION WIDTH 14.9 % (11.5-15.2)
[2017-07-02 05:55] LABS: ALANINE AMINOTRANSFERASE 74 IU/L (21-72); ALBUMIN 2.9 g/dL (3.5-5.0); ALKALINE PHOSPHATASE 62 IU/L (38-126); ANION GAP 11 mEq/L (8-16); ASPARTATE AMINOTRANSFERASE 17 IU/L (17-59); BILIRUBIN,TOTAL 0.6 mg/dL (0.1-1.4); BILIRUBIN-CONJUGATED 0.3 mg/dL (0.0-0.5); BILIRUBIN-UNCONJUGATED 0.3 mg/dL (0.0-1.1); CALCIUM 8.4 mg/dL (8.5-10.4); CARBON DIOXIDE 21 mEq/l (22-31); CHLORIDE 104 mEq/L (97-110); CREATININE 3.9 mg/dL (0.7-1.3); GLOMERULAR FILTRATION RATE 15; GLUCOSE 205 mg/dL (70-100); POTASSIUM 4.5 mEq/L (3.5-5.2); SODIUM 136 mEq/L (134-144); TOTAL PROTEIN 5.2 g/dL (6.3-8.2)
[2017-07-02 06:44] LABS: HYPOCHROMIA 1+; PLATELET ESTIMATE ADEQUATE (ADEQ)
--- NOTE | 2017-07-02 07:52 | SOAPPROG ---
SOAP Progress Note Assessment/Plan: Assessment: 1)OPAL, non-oliguric -felt related vanco, NSAIDS, may have had AIN component -Cr improving, good UOP. BUN out of proportion (steroids likely contributing)- follow -taking good po- encourage -discussed need for labs as outpt next week to continue to monitor trend 2)Edema- mobilizing edema now that Cr improving, monitor blister lesions- better today 3)DRES- improving, tapering steroids- plans to transition to po soon 4)s/ L TKR 05/23/17 with exposed hardware, completed abx 5)Met acidosis- have decreased dose of bicarb as level now 21, GFR improving, and contributing to edema 6)high phos- monitor, may need to restrict diet if worse 7)Anemia- low iron- would start supplement and MVI I discussed with 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 No sob, n/v. Cr improving. Objective: Vital Signs Temp Pulse Resp BP Pulse Ox 36.8 C 59 L 16 156/84 H 98 07/02/17 07:39 07/02/17 07:39 07/02/17 07:39 07/02/17 07:39 07/02/17 07:39 Laboratory Results 07/02/17 05:10 07/02/17 05:10 07/01/17 07/02/17 07/03/17 05:59 05:59 05:59 Intake Total 1950 400 Output Total 350 Balance 1950 50 PT 15.9 SEC (12.0-15.0) H 06/20/17 03:20 INR 1.27 (0.83-1.16) H 06/20/17 03:20 Physical Exam - Physical Exam General Appearance: alert, no apparent distress EENT: other (mmm) Neck: supple Respiratory: lungs clear Cardiac/Chest: regular rate, rhythm Abdomen: normal bowel sounds, non-tender, soft Skin: other (diffuse scaly rash- improving) Extremities: other (+edema with blister lesions- better today) Neuro/Psych: alert, oriented x 3 ICD10 Worksheet Patient Problems: Problems Problem Status Onset Acute renal failure Acute Fever Acute Hyponatremia Acute Arthritis of right knee Acute
[2017-07-02] MEDS: SODIUM BICARBONATE 650 MG TAB PO SCH ×2 (08:06→20:47)
[2017-07-02] MEDS: INSULIN LISPRO 100 UNIT/ML SC SCH ×3 (08:06→17:30)
[2017-07-02] MEDS: FAMOTIDINE 20 MG TAB PO SCH (08:09)
--- NOTE | 2017-07-02 09:09 | HOSPPROG ---
Hospitalist Progress Note Assessment/Plan: The patient is a 71-year-old male with history of hypertension diabetes who underwent a TKA in April 2017. During his recent hospitalization he was treated for prostatic joint infection and discharged home. He was admitted due to elevation in his creatinine. Initially, he was on the med surg floor but transferred to ICU w worsening allergic symptoms on 06/25. He is now back on the med surg floor. He is slowly improving. Reviewed his care with Dr. Ngozi Chaparro. #Dress syndrome / Severe drug hypersensitivity extensive drug rash- Solumedrol decreased to 40 mg q 6 hours, wean when rash improves prn Benadryl and Pepcid no involvement of mucus membrane appreciate Dr Bourgeois involvement rash improving on his back area and right leg/ but has some bullous areas on the left wilson area # S/P TKA 05/23/[address] Hernandez - had wound dehiscence post-op down to joint space and treated for joint infection plan is no further abx ambulating well/ knee with minimal swelling # Acute renal failure secondary to vancomycin toxicity, had been on ACEI and & NSAIDS (stopped on admission) avoiding any nephrotoxic agents appreciate renal creat is 3.9 BUN continues to increase/ spoke with Nephrology- this elevation likley due to steroids # Acute hypoxemic respiratory failure resolved # acidosis - sodium bicarb started per renal/dose was increased cont close watching # Hyponatremia - stable, off fluid restrictions #weight gain cont monitoring # Blood loss anemia - Apparently had significant blood loss during dehiscence episode. also, could be due to acute illness # Leukocytosis - likely due to steroids, monitor. # Hypertension bp 146/82 # DM - Holding Metformin in setting of OPAL. -cont SSI # Full code # Dispo - cont inpt # DVT PPLX - Heparin # plan. Spoke with Nephrology and he can get his kidney function checked weekly at the clinic in [place]. She felt he would be okay to be discharged soon. Once he gets on oral steroids, and all the above specialists agree he can be discharged home. His is a nurse. Subjective: Plan is feeling hopeful. Complains of ongoing lower extremity swelling. Objective: Vital Signs Temp Pulse Resp BP Pulse Ox 36.8 C 59 L 16 156/84 H 98 07/02/17 07:39 07/02/17 07:39 07/02/17 07:39 07/02/17 07:39 07/02/17 07:39 Laboratory Results 07/02/17 05:10 07/02/17 05:10 07/01/17 07/02/17 07/03/17 05:59 05:59 05:59 Intake Total 1950 400 Output Total 350 Balance 1950 50 PT 15.9 SEC (12.0-15.0) H 06/20/17 03:20 INR 1.27 (0.83-1.16) H 06/20/17 03:20 - Physical Exam Constitutional: not in pain Eyes: PERRL Ears, Nose, Mouth, Throat: hearing normal Cardiovascular: regular rate and rhythym Respiratory: no respiratory distress, reduced air movement Skin: warm, other (Nonblanching rash is improving over his back legs abdomen and chest. He has several bullous areas on the left wilson area) Musculoskeletal: full muscle strength Neurologic: AAOx3 Psychiatric: interacting appropriately, not anxious ICD10 Worksheet Patient Problems: Problems Problem Status Onset Acute renal failure Acute Fever Acute Hyponatremia Acute Arthritis of right knee Acute
--- NOTE | 2017-07-02 12:01 | SOAPPROG ---
SOAP Progress Note Assessment/Plan: Assessment: 71 y/o with DRESS syndrome, renal failure secondary to vancomycin toxicity creatinine 3.9, vanco 5.5 bullae on LLE has improved, one area completely resolved, doubt drug related, macular papular rash improving per verbal with lab says 0 eos per 100 cells - although path review results pending Plan: - continue IV steroids for today at methylpred 40mg iv q8 - if doing well tomorrow recommend change to prednisone 40mg po twice daily on then change to prednisone 30mg twice daily for 2 days then prednisone 20mg by mouth twice daily for 2 days and then reeval based on his symptoms, vanco level and eosinophil level - also change to ranitidine or famotidine daily and zyrtec orall daily with renal dosing - labs: continue to monitor daily eosinophil levels, cmp Subjective: Doing well have questions about discharge, coordination of care. less tired after the iv methylpred 40mg v the 60mg Objective: Vital Signs Temp Pulse Resp BP Pulse Ox 36.8 C 59 L 16 156/84 H 98 07/02/17 07:39 07/02/17 07:39 07/02/17 07:39 07/02/17 07:39 07/02/17 07:39 Laboratory Results 07/02/17 05:10 07/02/17 05:10 07/01/17 07/02/17 07/03/17 05:59 05:59 05:59 Intake Total 1950 400 Output Total 350 Balance 1950 50 PT 15.9 SEC (12.0-15.0) H 06/20/17 03:20 INR 1.27 (0.83-1.16) H 06/20/17 03:20 Gen- NAD Derm- desquamation of skin over scalp, back, several intact bullae on left anterior wilson, reviewed wifes pictures and the area on bulla on ankle has resovled, still has non blanching mac/pap rash bl le CV- rrr Lungs- bibasilar mild crackles ICD10 Worksheet Patient Problems: Problems Problem Status Onset Acute renal failure Acute Fever Acute Hyponatremia Acute Arthritis of right knee Acute
--- NOTE | 2017-07-02 13:27 | PCMIDPN ---
Assessment/Plan: Assessment/Plan: * Acute nephrotoxicity likely associated with vancomycin nephrotoxicity: Creatinine improved to 3.9 today. * Left total knee arthroplasty wound dehiscence with penetration to joint: Will consider treatment complete at this point as vancomycin slowly dissipating. * Fever, rash, eosinophilia, increased LFTs consistent with DRESS syndrome: Overall markedly improved with continued desquamation with underlying intact skin over face, chest, and back. Some bulla from yesterday have now flattened with intact skin present. Suspect these are related to edema rather than hypersensitivity. Will change Solu-Medrol to 40 mg IV q.8 hours today with plans for oral prednisone beginning tomorrow if continued improvement. Findings and plan discussed with patient, and Dr. Bourgeois. 07/02/17 13:23 Subjective: Patient feels better today. Few blisters remain over left lower extremity. No oral or genital ulcerations. Objective: Vital Signs Temp Pulse Resp BP Pulse Ox 36.8 C 59 L 16 156/84 H 98 07/02/17 07:39 07/02/17 07:39 07/02/17 07:39 07/02/17 07:39 07/02/17 07:39 Laboratory Results 07/02/17 05:10 07/02/17 05:10 07/01/17 07/02/17 07/03/17 05:59 05:59 05:59 Intake Total 1950 400 Output Total 350 Balance 1950 50 Laboratory Tests 07/02/17 05:10 Random Vancomycin 5.5 - Physical Exam General Appearance: alert, no apparent distress EENT: other (No conjunctival injection or oral ulcerations) Respiratory: lungs clear, No respiratory distress Cardiac/Chest: regular rate, rhythm Skin: rash (Rash over lower extremity significantly less prominent; desquamating skin over face, back and chest starting to resolve; bulla over medial malleolar region from yesterday resolve; bulla with clear/yellow fluid present over anterior wilson x3) ICD10 Worksheet Patient Problems: Problems Problem Status Onset Acute renal failure Acute Fever Acute Hyponatremia Acute Arthritis of right knee Acute
[2017-07-03] MEDS: methylPREDNISolone SOD SUCC 40 MG/ML VIAL IVP SCH ×2 (01:42→09:42)
[2017-07-03] MEDS: HEPARIN 5,000 UNIT/0.5 ML SYR SC SCH (05:33)
[2017-07-03 06:11] LABS: ALBUMIN 2.7 g/dL (3.5-5.0); ANION GAP 11 mEq/L (8-16); CALCIUM 7.9 mg/dL (8.5-10.4); CARBON DIOXIDE 21 mEq/l (22-31); CHLORIDE 106 mEq/L (97-110); CREATININE 3.4 mg/dL (0.7-1.3); GLOMERULAR FILTRATION RATE 18; GLUCOSE 193 mg/dL (70-100); POTASSIUM 4.5 mEq/L (3.5-5.2); SODIUM 138 mEq/L (134-144)
[2017-07-03] MEDS: INSULIN LISPRO 100 UNIT/ML SC SCH ×3 (07:55→18:03)
[2017-07-03] MEDS: SODIUM BICARBONATE 650 MG TAB PO SCH ×2 (09:42→20:47)
[2017-07-03] MEDS: FAMOTIDINE 20 MG TAB PO SCH (09:42)
--- NOTE | 2017-07-03 11:35 | PCMIDPN ---
Assessment/Plan: Assessment/Plan: * Acute nephrotoxicity likely associated with vancomycin nephrotoxicity: Creatinine improved to 3.4 today. * Left total knee arthroplasty wound dehiscence with penetration to joint: Will consider treatment complete at this point as vancomycin slowly dissipating. * Fever, rash, eosinophilia, increased LFTs consistent with DRESS syndrome: Continued improvement with resolving rash. Bulla persist over left lower extremity with intact skin as they resolved. Favor edema rather than drug toxicity as etiology for this finding. Will change Solu-Medrol to prednisone as outlined by Dr. Bourgeois. 07/03/17 11:32 Subjective: Patient continues to feel improved. Still has some blisters over left lower extremity. No oral ulcerations. Did note blood with passage of last bowel movement. Objective: Vital Signs Temp Pulse Resp BP Pulse Ox 36.6 C 87 16 154/78 H 97 07/03/17 09:16 07/03/17 09:16 07/03/17 09:16 07/03/17 09:16 07/03/17 09:16 Laboratory Results 07/02/17 05:10 07/03/17 05:35 07/02/17 07/03/17 07/04/17 05:59 05:59 05:59 Intake Total 400 400 Output Total 350 Balance 50 400 - Physical Exam General Appearance: alert, no apparent distress EENT: other (No oral ulcerations or conjunctival injection) Skin: other (Rash resolving with diffuse peeling of skin with intact underlying skin; bulla over left anterior lower extremity without significant interval change) ICD10 Worksheet Patient Problems: Problems Problem Status Onset Acute renal failure Acute Fever Acute Hyponatremia Acute Arthritis of right knee Acute
--- NOTE | 2017-07-03 11:53 | SOAPPROG ---
SOAP Progress Note Assessment/Plan: Assessment: 1)OPAL, non-oliguric -felt related vanco, NSAIDS, may have had AIN component -Cr improving, good UOP. BUN out of proportion (steroids likely contributing)- follow -taking good po -discussed need for labs as outpt next week to continue to monitor trend 2)Edema- mobilizing edema now that Cr improving, monitor blister lesions- overall this is improving but will take more time to resolve 3)DRES- improving, tapering steroids- plans to transition to po per allergy 4)s/ L TKR 05/23/17 with exposed hardware, completed abx,ID following 5)Met acidosis- have decreased dose of bicarb as level now 21, GFR improving, and contributing to edema 6)high phos- monitor, may need to restrict diet if worse- reviewed diet with pt and 7)Anemia- low iron- would start supplement and MVI when ok by allergy 8)rectal bleeding- ?steroid effect- monitor as may need GI eval if recurs. VItals stable, abd exam benign. May need to add PPI given steroids but would want to run by agricultural sciences professor. 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 Had one episode of loose stool today with a little blood mixed in. No abd pain, dizzines, vomiting. Drinking/eating ok. Objective: Vital Signs Temp Pulse Resp BP Pulse Ox 36.6 C 87 16 154/78 H 97 07/03/17 09:16 07/03/17 09:16 07/03/17 09:16 07/03/17 09:16 07/03/17 09:16 Laboratory Results 07/02/17 05:10 07/03/17 05:35 07/02/17 07/03/17 07/04/17 05:59 05:59 05:59 Intake Total 400 400 Output Total 350 Balance 50 400 PT 15.9 SEC (12.0-15.0) H 06/20/17 03:20 INR 1.27 (0.83-1.16) H 06/20/17 03:20 Physical Exam - Physical Exam General Appearance: alert, no apparent distress EENT: other (mmm) Neck: supple Cardiac/Chest: regular rate, rhythm Abdomen: non-tender, soft Extremities: other (+edema better, blister lesions stable) Neuro/Psych: alert, oriented x 3 ICD10 Worksheet Patient Problems: Problems Problem Status Onset Acute renal failure Acute Fever Acute Hyponatremia Acute Arthritis of right knee Acute
--- NOTE | 2017-07-03 14:34 | HOSPPROG ---
Hospitalist Progress Note Assessment/Plan: Assessment: 71-year-old male p/w DRESS w/ resultant OPAL Plan: # DRESS / Severe drug hypersensitivity. Extensive drug rash in setting of Vanco - Solumedrol adjusted to Pred 40 bid today, then Pred 30 bid x 2 days, then Pred 20 bid x 2 days - cont famotidine/cetirizine - appreciate Dr Bourgeois' involvement - ongoing bullae LLE, desquamating skin dry # S/P TKA 05/23/[address] Hernandez - had wound dehiscence post-op down to joint space and treated for joint infection - plan is no further abx - ambulating well / knee with minimal swelling # OPAL. 2/2 vancomycin toxicity, had been on ACEI and & NSAIDS (stopped on admission) - avoiding any nephrotoxic agents - appreciate ongoing renal consult, today creat is 3.4 - counseled patient regarding edema tx today, avoiding diuretics (OPAL) and TEDs (bullae) # Acute hypoxemic respiratory failure. Resolved # Metabolic acidosis. Acute, 2/2 OPAL, PO sodium bicarb started per renal/dose was increased # Hyponatremia. Acute, stable, off fluid restrictions # Acute blood loss anemia. Significant blood loss during dehiscence episode, hematochezia o/n, likely 2/2 platelet dysfxn - check CBC # Hypertension. Chronic, monitoring, hold ing Rx # DM. Chronic, holding Metformin in setting of OPAL. - cont SSI Diet. Regular PPx. Holding pharm given small hematochezia Code. Full Dispo. ADD 07/05, pending stabilization of above. Subjective: hematochezia o/n, legs edematous, counseled patient and regarding edema trajectory Objective: Vital Signs Temp Pulse Resp BP Pulse Ox 36.6 C 87 16 154/78 H 97 07/03/17 09:16 07/03/17 09:16 07/03/17 09:16 07/03/17 09:16 07/03/17 09:16 Laboratory Results 07/02/17 05:10 07/03/17 05:35 07/02/17 07/03/17 07/04/17 05:59 05:59 05:59 Intake Total 400 400 Output Total 350 Balance 50 400 PT 15.9 SEC (12.0-15.0) H 06/20/17 03:20 INR 1.27 (0.83-1.16) H 06/20/17 03:20 - Time Spent With Patient Time Spent with Patient: greater than 35 minutes Time Spent with Patient: Greater than 35 minutes spent on this patients care, greater than 50% of time spent counseling, educating, and coordinating care regarding the above mentioned plan. - Physical Exam Constitutional: no apparent distress, not in pain, No uncomfortable Ears, Nose, Mouth, Throat: moist mucous membranes, hearing normal, ears appear normal, no oral mucosal ulcers Cardiovascular: regular rate and rhythym, no murmur, rub, or gallop, edema (1+ bilat LE) Respiratory: no respiratory distress, no rales or rhonchi, clear to auscultation Gastrointestinal: normoactive bowel sounds, soft, non-tender abdomen, no palpable masses Skin: other (flaking desquamation diffusely throughout, tense bullae LLE, petechiae bilat LE) Neurologic: AAOx3, sensation intact bilaterally, No weakness Psychiatric: interacting appropriately, not anxious, not encephalopathic, thought process linear ICD10 Worksheet Patient Problems: Problems Problem Status Onset Acute renal failure Acute Fever Acute Hyponatremia Acute Arthritis of right knee Acute
--- NOTE | 2017-07-03 15:21 | ASMTCMCOM ---
CM Note CM Note Notes: Plan remains the same, pt will dc home w/support of when medically stable. CM available for any changes. Date Signed: 07/03/2017 03:20 PM Electronically Signed By:Inocencia Callahan
[2017-07-03 16:09] LABS: ADD DIFF? YES; ADD MORPH? NO; ADD SCAN? NO; ATYPICAL LYMPHOCYTE FLAG 20 (0-99); FRAGMENT RBC FLAG 0 (0-99); HEMATOCRIT 22.9 % (40.0-51.0); HEMOGLOBIN 7.5 g/dL (13.7-17.5); LEFT SHIFT FLG 50 (0-99); LIPEMIA HEMOLYSIS FLAG 80 (0-99); MEAN CELL HEMOGLOBIN 30.4 pg (27.9-34.1); MEAN CELL HEMOGLOBIN CONCENTR. 32.8 g/dL (32.4-36.7); MEAN CELL VOLUME 92.7 fL (81.5-99.8); MEAN PLATELET VOLUME 9.6 fL (8.7-11.7); PLATELET CLUMPS FLAG 0 (0-99); PLATELET COUNT 296 10^3/uL (150-400); RED BLOOD CELL COUNT 2.47 10^6/uL (4.40-6.38); RED CELL DISTRIBUTION WIDTH 15.1 % (11.5-15.2)
[2017-07-03 16:42] LABS: PLATELET ESTIMATE ADEQUATE (ADEQ)
[2017-07-03] MEDS ORDERED: predniSONE 20 MG TAB PO SCH (18:00)
[2017-07-03] MEDS: predniSONE 20 MG TAB PO SCH (20:47)
[2017-07-03] MEDS: CETIRIZINE 10 MG TAB PO SCH (20:47)
[2017-07-03] MEDS ORDERED: CETIRIZINE 5 MG/5 ML UDL PO SCH (21:00)
[2017-07-03 22:22] VITALS: O2SAT 96
[2017-07-04 05:11] LABS: ADD DIFF? YES; ADD SCAN? NO; ATYPICAL LYMPHOCYTE FLAG 20 (0-99); FRAGMENT RBC FLAG 0 (0-99); HEMATOCRIT 20.7 % (40.0-51.0); LEFT SHIFT FLG 30 (0-99); LIPEMIA HEMOLYSIS FLAG 80 (0-99); MEAN CELL HEMOGLOBIN 30.4 pg (27.9-34.1); MEAN CELL HEMOGLOBIN CONCENTR. 32.9 g/dL (32.4-36.7); MEAN CELL VOLUME 92.4 fL (81.5-99.8); MEAN PLATELET VOLUME 9.8 fL (8.7-11.7); PLATELET CLUMPS FLAG 10 (0-99); PLATELET COUNT 255 10^3/uL (150-400); RED BLOOD CELL COUNT 2.24 10^6/uL (4.40-6.38); RED CELL DISTRIBUTION WIDTH 15.3 % (11.5-15.2)
[2017-07-04 05:13] LABS: ADD MORPH? NO; ALANINE AMINOTRANSFERASE 62 IU/L (21-72); ALBUMIN 2.7 g/dL (3.5-5.0); ALKALINE PHOSPHATASE 50 IU/L (38-126); ANION GAP 9 mEq/L (8-16); ASPARTATE AMINOTRANSFERASE 16 IU/L (17-59); BILIRUBIN,TOTAL 0.5 mg/dL (0.1-1.4); BILIRUBIN-CONJUGATED 0.3 mg/dL (0.0-0.5); BILIRUBIN-UNCONJUGATED 0.2 mg/dL (0.0-1.1); CALCIUM 7.8 mg/dL (8.5-10.4); CARBON DIOXIDE 22 mEq/l (22-31); CHLORIDE 108 mEq/L (97-110); CREATININE 3.1 mg/dL (0.7-1.3); GLOMERULAR FILTRATION RATE 20; GLUCOSE 201 mg/dL (70-100); HEMOGLOBIN 6.8 g/dL (13.7-17.5); POTASSIUM 4.6 mEq/L (3.5-5.2); SODIUM 139 mEq/L (134-144); TOTAL PROTEIN 4.7 g/dL (6.3-8.2)
[2017-07-04 05:51] LABS: HYPOCHROMIA 1+; PLATELET ESTIMATE ADEQUATE (ADEQ)
[2017-07-04] MEDS: predniSONE 20 MG TAB PO SCH ×2 (09:05→20:50)
[2017-07-04] MEDS: SODIUM BICARBONATE 650 MG TAB PO SCH (09:05)
[2017-07-04] MEDS: INSULIN LISPRO 100 UNIT/ML SC SCH ×3 (09:05→16:26)
[2017-07-04] MEDS: FAMOTIDINE 20 MG TAB PO SCH (09:05)
--- NOTE | 2017-07-04 13:35 | PCMIDPN ---
Assessment/Plan: Assessment/Plan: 1. Acute nephrotoxicity likely associated with vancomycin nephrotoxicity: -Creatinine improving slowly. -Appreciate nephrology. 2. Left total knee arthroplasty wound dehiscence with penetration to joint: -persistent vancomycin levels, no plans for additional antibiotics 3. 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 -Rash has peaked and is in midst of resolution phase. -taper down prednisone as outlined by Dr. Bourgeois. Appreciate her assistance meds prednisone 40mg bid-07/03 s/p iv solumedrol Subjective: afebrile. feeling better. denies sob, abd pain, diarrhea. no new rashes. Objective: Vital Signs Temp Pulse Resp BP Pulse Ox 36.8 C 65 16 155/78 H 96 07/04/17 08:00 07/04/17 08:00 07/04/17 08:00 07/04/17 08:00 07/04/17 08:00 Laboratory Results 07/04/17 04:40 07/04/17 04:40 07/03/17 07/04/17 07/05/17 05:59 05:59 05:59 Intake Total 400 0 Balance 400 0 - Physical Exam General Appearance: alert, no apparent distress Respiratory: lungs clear Cardiac/Chest: regular rate, rhythm Extremities: swelling Abdomen: normal bowel sounds, non-tender, soft, No distended Skin: other (fading rash overall. still slightly prominent on LLE with four to five medium sized blebs noted. some are collapsing and are not tense. no tenderness to palpate around area. rest of skin involving abdomen, trunk, arms, face, scalp all improving. left knee surgical site noted. peeling of skin in many areas as expected. no desquamation. ) ICD10 Worksheet Patient Problems: Problems Problem Status Onset Acute renal failure Acute Fever Acute Hyponatremia Acute Arthritis of right knee Acute
[2017-07-04] MEDS ORDERED: FUROSEMIDE 40 MG/4 ML VIAL IVP ONE (14:09)
--- NOTE | 2017-07-04 14:14 | SOAPPROG ---
SOAP Progress Note Assessment/Plan: Assessment:Plan: Facial Edema with exfoliative rash-severe allergic reaction from Vanco -improving rash -no fever -given solumedrol famotidine and diphenhydramine -responding well -vanco level coming down -now on oral prednisone -dosing per Dr. Bourgeois OPAL-due to vanco toxicity -he remains non-oliguric with no significant electrolytes abnormalities, which would be typical of this injury -modest volume overload with ongoing edema Volume overload-will stop bicarbonate -lasix after he is given blood Anemia-PRBC's ordered by Dr. Emma Solorzano-likely home tomorrow -labs on Monday -then weekly based on recovery from OPAL -order slips given to patient and spouse 07/04/17 14:10 Subjective: slowly better Objective: Vital Signs Temp Pulse Resp BP Pulse Ox 36.8 C 65 16 155/78 H 96 07/04/17 08:00 07/04/17 08:00 07/04/17 08:00 07/04/17 08:00 07/04/17 08:00 Laboratory Results 07/04/17 04:40 07/04/17 04:40 07/03/17 07/04/17 07/05/17 05:59 05:59 05:59 Intake Total 400 0 Balance 400 0 PT 15.9 SEC (12.0-15.0) H 06/20/17 03:20 INR 1.27 (0.83-1.16) H 06/20/17 03:20 Physical Exam - Physical Exam General Appearance: WD/WN, alert, no apparent distress, obese EENT: normal ENT inspection, other (exfoliative rash) Neck: normal inspection Respiratory: decreased breath sounds, crackles, No respiratory distress Cardiac/Chest: regular rate, rhythm, No diastolic murmur, No systolic murmur Abdomen: normal bowel sounds, non-tender, soft, No organomegaly, No hepatomegaly , No splenomegaly Skin: rash, other (blister on L wilson) Extremities: swelling (into thighs) Neuro/Psych: no motor/sensory deficits, alert, normal mood/affect, oriented x 3 ICD10 Worksheet Patient Problems: Problems Problem Status Onset Acute renal failure Acute Fever Acute Hyponatremia Acute Arthritis of right knee Acute
--- NOTE | 2017-07-04 15:21 | HOSPPROG ---
Hospitalist Progress Note Assessment/Plan: Assessment: 71-year-old male p/w DRESS w/ resultant OPAL Plan: # DRESS / Severe drug hypersensitivity. Extensive drug rash in setting of Vanco , Eos trended to normal - tomorrow Pred 30 bid x 2 days, then Pred 20 bid x 2 days - cont famotidine/cetirizine - appreciate Dr Bourgeois' involvement - ongoing bullae LLE, desquamating skin dry, no worsening today # S/P TKA 05/23/[address] Hernandez. Had wound dehiscence post-op down to joint space and treated for joint infection - plan is no further abx - ambulating well / knee with minimal swelling # OPAL. 2/2 vancomycin toxicity, had been on ACEI and & NSAIDS (stopped on admission) - avoiding any nephrotoxic agents - appreciate ongoing renal consult, today creat is improving to 3.1 - counseled patient regarding edema tx, avoiding diuretics (OPAL) and TEDs ( bullae) # Acute hypoxemic respiratory failure. Resolved # Metabolic acidosis. Acute, 2/2 OPAL, PO sodium bicarb started per renal, continue # Hyponatremia. Acute, stable, off fluid restrictions # Acute blood loss anemia. Significant blood loss during dehiscence episode, very minimal amount hematochezia but has resolved, ongoing downward drift likely 2/2 low epo-state - transfuse 1u PRBC w/ lasix after, d/w Dr. Huntley - check CBC tomorrow # Hypertension. Chronic, monitoring, holding Rx # DM. Chronic, holding Metformin in setting of OPAL. - cont SSI Diet. Regular PPx. Holding pharm given small hematochezia Code. Full Dispo. ADD 07/05, pending stabilization of above. Subjective: Patient feeling more fatigued today, counseled patient and extensively regarding blood transfusions, the role of anemia in the setting of kidney disease, the utility of diuretics following transfusions, and the importance of communicating with the numerous members of the care team Objective: Vital Signs Temp Pulse Resp BP Pulse Ox 36.8 C 65 16 155/78 H 96 07/04/17 08:00 07/04/17 08:00 07/04/17 08:00 07/04/17 08:00 07/04/17 08:00 Laboratory Results 07/04/17 04:40 07/04/17 04:40 09/02/1307/04/17 07/05/17 05:59 05:59 05:59 Intake Total 400 0 Balance 400 0 PT 15.9 SEC (12.0-15.0) H 06/20/17 03:20 INR 1.27 (0.83-1.16) H 06/20/17 03:20 - Time Spent With Patient Time Spent with Patient: greater than 35 minutes Time Spent with Patient: Greater than 35 minutes spent on this patients care, greater than 50% of time spent counseling, educating, and coordinating care regarding the above mentioned plan. - Pending Discharge Pending Discharge Within 24 Hours: Yes Pending Discharge Date: 07/05/17 Pending Discharge Time: 11:00 - Physical Exam Constitutional: no apparent distress, not in pain Cardiovascular: regular rate and rhythym, no murmur, rub, or gallop, systolic murmur (1/6 systolic murmur at all valve), edema (1+ bilateral lower extremity edema) Respiratory: no respiratory distress, no rales or rhonchi, clear to auscultation Gastrointestinal: normoactive bowel sounds, soft, non-tender abdomen, no palpable masses Skin: other (Bullae remain bilateral lower extremities, left greater than right , flaking skin) Neurologic: AAOx3, sensation intact bilaterally Psychiatric: not encephalopathic, anxious, No agitated ICD10 Worksheet Patient Problems: Problems Problem Status Onset Arthritis of right knee Acute Acute renal failure Acute Fever Acute Hyponatremia Acute
--- NOTE | 2017-07-04 18:15 | SOAPPROG ---
SOAP Progress Note Assessment/Plan: Assessment: 71 y/o with DRESS syndrome, renal failure secondary to vancomycin toxicity creatinine 3.1, bullae on LLE improved, probalby related to edema,doubt drug related, macular papular rash improving Plan: - continue IV steroids for today at methylpred 40mg iv q8 - if doing well tomorrow recommend change to prednisone 40mg po twice daily on then change to prednisone 30mg twice daily for 2 days then prednisone 20mg by mouth twice daily for 2 days and then reeval based on his symptoms, vanco level and eosinophil level - also change to ranitidine or famotidine daily and zyrtec oral daily with renal dosing- pt requests script for these to be sent to [facility] with script for injectible epi - labs on monday cbc with diff, cmp, vanco level- he requests these drawn in [place] at nephrologists office - pt has appt at 1:30pm 07/04/17 18:10 Subjective: questions regarding discharge. doing well. getting transfused today. Objective: Vital Signs Temp Pulse Resp BP Pulse Ox 36.2 C 55 L 16 173/90 H 96 07/04/17 16:00 07/04/17 16:00 07/04/17 16:00 07/04/17 16:00 07/04/17 16:00 Laboratory Results 07/04/17 04:40 07/04/17 04:40 07/03/17 07/04/17 07/05/17 05:59 05:59 05:59 Intake Total 400 0 548 Balance 400 0 548 PT 15.9 SEC (12.0-15.0) H 06/20/17 03:20 INR 1.27 (0.83-1.16) H 06/20/17 03:20 Derm: non blanching mac/pap rash on le, desquamation of skin on back and face, left lle with 4 bulla anteriorly and one on medial aspect of ankle COR: RRR Lungs: CTA Ext: + edema Neuro: alert oriented ICD10 Worksheet Patient Problems: Problems Problem Status Onset Acute renal failure Acute Fever Acute Hyponatremia Acute Arthritis of right knee Acute
[2017-07-04] MEDS: CETIRIZINE 10 MG TAB PO SCH (20:50)
[2017-07-05] MEDS ORDERED: INSULIN LISPRO 100 UNIT/ML SC SCH
[2017-07-05 05:47] LABS: ADD DIFF? YES; ADD MORPH? NO; ADD SCAN? NO; ATYPICAL LYMPHOCYTE FLAG 20 (0-99); FRAGMENT RBC FLAG 0 (0-99); HEMATOCRIT 24.7 % (40.0-51.0); HEMOGLOBIN 8.2 g/dL (13.7-17.5); LEFT SHIFT FLG 20 (0-99); LIPEMIA HEMOLYSIS FLAG 80 (0-99); MEAN CELL HEMOGLOBIN 30.4 pg (27.9-34.1); MEAN CELL HEMOGLOBIN CONCENTR. 33.2 g/dL (32.4-36.7); MEAN CELL VOLUME 91.5 fL (81.5-99.8); MEAN PLATELET VOLUME 9.7 fL (8.7-11.7); PLATELET CLUMPS FLAG 0 (0-99); PLATELET COUNT 223 10^3/uL (150-400); RED CELL DISTRIBUTION WIDTH 15.2 % (11.5-15.2)
[2017-07-05 06:12] LABS: ALBUMIN 2.7 g/dL (3.5-5.0); ANION GAP 10 mEq/L (8-16); CALCIUM 8.3 mg/dL (8.5-10.4); CARBON DIOXIDE 24 mEq/l (22-31); CHLORIDE 107 mEq/L (97-110); CREATININE 3.1 mg/dL (0.7-1.3); GLOMERULAR FILTRATION RATE 20; GLUCOSE 203 mg/dL (70-100); POTASSIUM 4.4 mEq/L (3.5-5.2); SODIUM 141 mEq/L (134-144)
[2017-07-05 06:54] LABS: PLATELET ESTIMATE ADEQUATE (ADEQ)
[2017-07-05 06:57] LABS: HYPOCHROMIA 1+
[2017-07-05] MEDS: FAMOTIDINE 20 MG TAB PO SCH (08:22)
[2017-07-05] MEDS: INSULIN LISPRO 100 UNIT/ML SC SCH ×2 (08:28→13:06)
[2017-07-05] MEDS ORDERED: predniSONE 10 MG TAB PO SCH (09:00)
[2017-07-05 09:05] VITALS: BP 148/68; PULSE 58; RESP 14; TEMP 97.9
--- NOTE | 2017-07-05 10:57 | PCMIDPN ---
Assessment/Plan: Assessment/Plan: * Acute nephrotoxicity likely associated with vancomycin nephrotoxicity: Creatinine improved to 3.1 today. * Left total knee arthroplasty wound dehiscence with penetration to joint: Will consider treatment complete at this point. Original stop date 07/08/17 - vancomycin was add measurable levels almost until expected stop date. Will have follow-up in my office next week to ensure knee continues to improve and to reassess below. * Fever, rash, eosinophilia, increased LFTs consistent with DRESS syndrome: Continued improvement with resolving rash. Below over left lower extremity less prominent and skin remains intact. Will continue with prednisone taper as outlined by Dr. Bourgeois. 07/05/17 10:53 Subjective: Patient continues to feel better. No oral ulcerations. Some bulla over left lower extremity have resolved while a few new have appeared over ankle. Objective: Vital Signs Temp Pulse Resp BP Pulse Ox 36.6 C 58 L 14 148/68 H 96 07/05/17 08:00 07/05/17 08:00 07/05/17 08:00 07/05/17 08:00 07/05/17 08:00 Laboratory Results 07/05/17 05:40 07/05/17 05:40 07/04/17 07/05/17 07/06/17 05:59 05:59 05:59 Intake Total 0 1048 Balance 0 1048 - Physical Exam General Appearance: alert, no apparent distress Skin: rash (Rash continuing to resolve; majority of bulla over anterior wilson have resolve with small residual area over ankle on left) ICD10 Worksheet Patient Problems: Problems Problem Status Onset Acute renal failure Acute Fever Acute Hyponatremia Acute Arthritis of right knee Acute
--- NOTE | 2017-07-05 11:58 | ASMTCMCOM ---
CM Note CM Note Notes: CM met w/ pt and . Bedside RN contacted patient rep who came and met w/ pt and . Pt is being discharged independent today. has set up all of pts outpatient appointments. CM available for any changes. Date Signed: 07/05/2017 11:57 AM Electronically Signed By:Fany Rucker
--- NOTE | 2017-07-05 12:29 | HOSPPROG ---
Hospitalist Progress Note Assessment/Plan: The patient is a 71-year-old male with history of hypertension diabetes who underwent a TKA in April 2017. During his recent hospitalization he was treated for prostatic joint infection and discharged home. He was admitted due to elevation in his creatinine. Initially, he was on the med surg floor but transferred to ICU w worsening allergic symptoms on 06/25. He is now back on the med surg floor. He is slowly improving. Reviewed his care with Dr. Thorne #Dress syndrome / Severe drug hypersensitivity extensive drug rash- oral prednisone prn Benadryl and Pepcid no involvement of mucus membrane appreciate Dr Bourgeois involvement rash improving on his back area and right leg/ but has some bullous areas on the left wilson area # S/P TKA 05/23/[address] Hernandez - had wound dehiscence post-op down to joint space and treated for joint infection plan is no further abx ambulating well/ knee with minimal swelling # Acute renal failure secondary to vancomycin toxicity, had been on ACEI and & NSAIDS (stopped on admission) avoiding any nephrotoxic agents appreciate renal creat is 3.1 # Acute hypoxemic respiratory failure resolved # acidosis - sodium bicarb started per renal/dose was increased cont close watching # Hyponatremia -resolved #weight gain cont monitoring # Blood loss anemia - Apparently had significant blood loss during dehiscence episode. also, could be due to acute illness # Leukocytosis - likely due to steroids, monitor. # Hypertension bp 146/68 # DM - Holding Metformin in setting of OPAL. -cont SSI # Full code # Dispo - cont inpt # DVT PPLX - Heparin # plan. DC home. Has close follow-up with all the specialties. Subjective: Pietro is feeling well and is very excited to be discharged. Objective: Vital Signs Temp Pulse Resp BP Pulse Ox 36.6 C 58 L 14 148/68 H 96 07/05/17 08:00 07/05/17 08:00 07/05/17 08:00 07/05/17 08:00 07/05/17 08:00 Laboratory Results 07/05/17 05:40 07/05/17 05:40 07/04/17 07/05/17 07/06/17 05:59 05:59 05:59 Intake Total 0 1048 Balance 0 1048 PT 15.9 SEC (12.0-15.0) H 06/20/17 03:20 INR 1.27 (0.83-1.16) H 06/20/17 03:20 - Physical Exam Constitutional: no apparent distress, appears nourished, not in pain Eyes: PERRL Ears, Nose, Mouth, Throat: hearing normal Respiratory: no respiratory distress Skin: other (Skin rash is markedly improved) Musculoskeletal: full muscle strength Neurologic: AAOx3 Psychiatric: interacting appropriately ICD10 Worksheet Patient Problems: Problems Problem Status Onset Acute renal failure Acute Fever Acute Hyponatremia Acute Arthritis of right knee Acute
--- NOTE | 2017-07-05 13:29 | SOAPPROG ---
SOAP Progress Note Assessment/Plan: Assessment: 1. arf: vanco toxicity, resolving. Arrangements made for outpt labs and f/u in our [place] office. Will take weeks/months to determine new b/l creat. Would cont to hold acei until new b/l determined unless needed for difficult bp control. 2. DRES: resolving 3. htn: hold lisinopril as above. Plan: 06/21/17 13:42 06/23/17 14:07 06/23/17 14:09 07/05/17 13:26 Subjective: Feeling well, anticipating d/c later today. Objective: Vital Signs Temp Pulse Resp BP Pulse Ox 36.6 C 58 L 14 148/68 H 96 07/05/17 08:00 07/05/17 08:00 07/05/17 08:00 07/05/17 08:00 07/05/17 08:00 Laboratory Results 07/05/17 05:40 07/05/17 05:40 07/04/17 07/05/17 07/06/17 05:59 05:59 05:59 Intake Total 0 1048 Balance 0 1048 PT 15.9 SEC (12.0-15.0) H 06/20/17 03:20 INR 1.27 (0.83-1.16) H 06/20/17 03:20 Physical Exam - Physical Exam General Appearance: no apparent distress Respiratory: lungs clear Cardiac/Chest: regular rate, rhythm Skin: other (faded rash, sloughing dry skin) Extremities: pedal edema ICD10 Worksheet Patient Problems: Problems Problem Status Onset Acute renal failure Acute Fever Acute Hyponatremia Acute Arthritis of right knee Acute
--- NOTE | 2017-07-05 15:04 | WOCRNPDOC ---
WOCRN Advanced Assessment Note - Skin Integrity Problem, Advanced Assess Left Anterior Lower Leg Blister Dressing Type: Open to Air Exudate Amount: Moderate Exudate Characteristic(s): Serous Wound Bed Constitution: Intact Serous Filled Blister (x approx 10) Skin Integrity Problem Comment: Various intact and drained bulla of varying sizes, over left lower leg and ankle all roofs intact and some reattaching. Some serous drainage noted. Advise leaving roof intact and keeping covered to stop the bulla from deroofing if possible. Clean in shower and then cover with mepilex transfer, ABD and kerlix. Reported to Génesis CEDILLO. 2 Student RN's Luz Marina x2 in room for care.
--- NOTE | 2017-07-06 03:28 | GDS ---
[f rep st] DISCHARGE SUMMARY DISCHARGE DIAGNOSES: 1. Drug reaction with eosinophilia and systemic. symptoms syndrome/severe drug hypersensitivity. 1. Status post total knee arthroplasty on 05/23. 2. Acute renal failure. 3. Acute hypoxemic respiratory failure. 4. Acidosis. 5. Hyponatremia. 6. Weight gain. 7. Blood loss anemia. 8. Leukocytosis. 9. Hypertension. 10. Diabetes. CONSULTATIONS DURING HIS STAY: 1. Dr. Juan Luis Thorne. 2. Dr. Missael Huntley. 3. Dr. Casandra Bourgeois. HISTORY OF PRESENT ILLNESS: Briefly, the patient is a 71-year-old male with a history of hypertensio n, diabetes, who underwent a left TKA on May 23, 2017, with Dr. Hernandez. After he was hospitalized, hi s knees buckled and his incision dehisced. He underwent a repair an I and D on 05/26/2017. 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 He was following Dr. Thorne in the outpatient setting. While he was home , it was noted that he was in acute renal failure due to decreased p.o. intake, Advil use with lisino pril, and he also had been on vancomycin. He was admitted and seen by various specialties. It was n oted that he had vancomycin toxicity, the etiology of his DRESS syndrome. He was treated with IV hyd ration and over time, he improved. His rash during his stay became increasingly worse and at that ti me, Dr. Bourgeois was asked to further evaluate him. He had severe facial angioedema and some respirat ory distress, and a maculopapular rash. He was transferred up to the ICU and was treated with steroi ds. He was given a dose of 125 mg and started on 60 mg IV q.6 hours with H2 and H1 blockades. Throu ghout his stay, he slowly improved. He will go home with close followup with all the specialties. [facility] rash is markedly improved on discharge. HOSPITAL COURSE PER PROBLEM: 1. DRESS syndrome/severe drug hypersensitivity. His rash improved significantly on his arms and leg s, and back area. He will continue prednisone for several more days and has an appointment on Monday with Dr. Bourgeois. In addition, he has been given a prescription for an EpiPen in case he has a chava re allergic reaction. 2. Status post TKA in April of 2017. The plan is no further antibiotics. He has been ambulating wel l. His knee has minimal swelling. 3. Acute renal failure. He has been doing better daily. His creatinine on discharge is 3.1. He wi ll get labs checked this Monday and have close followup with Dr. Huntley. 4. Acute hypoxemic respiratory failure, resolved. 5. Acidosis, much improved. He was treated with sodium bicarb during his stay. 6. Hyponatremia, resolved. 7. Weight gain, much improved. 8. Blood loss anemia. He was given a unit of packed red blood cells yesterday without any difficult y. 9. Leukocytosis, markedly improved. White blood cell count today is 10. 10. Hypertension, overall stable. 11. Diabetes. Holding his metformin. Given him a prescription for insulin and to stay on the slidi ng scale. CONDITION AT DISCHARGE: Stable. Blood pressure is 148/68, heart rate is 58, respiratory rate is 14, O2 saturation on room air 96%, te mperature is 36.6 Celsius. MEDICATIONS AT DISCHARGE: Please see the EMR. DISCHARGE INSTRUCTIONS: 1. To follow up with Dr. Bourgeois this Monday as scheduled. 2. To get labs drawn. 3. To not acutely stop prednisone until further evaluation with Dr. Bourgeois. 4. Close followup with Dr. Huntley. 5. Hold lisinopril and hold metformin. 6. If he develops fever, chills, worsening rash, or erythema, to return to the ER. Greater than 30 minutes discharging and coordinating care. /[id number]/MODL
[2017-07-07] MEDS ORDERED: predniSONE 20 MG TAB PO SCH (09:00)
--- NOTE | 2017-07-09 17:05 | ASDISCHSUM ---
Discharge Information Plan Status:Home with No Needs Medically Cleared to Leave:07/05/2017 Discharge Date:07/05/2017 03:07 PM CM D/C Disposition:Home, Routine, Self-Care ADT D/C Disposition:Home, Routine, Self-Care Projected Discharge Date:07/05/2017 12:00 AM Transportation at D/C: Discharge Delay Reason: Follow-Up Date:07/05/2017 12:00 AM Discharge Slot: Final Diagnosis: Placement Information Patient Contact Information Contact Name:SOBEIDA Relationship: Address:[address] City:[facility] Phone: [facility]/Zip Code:[place] [address] Email: Financial Information Financial Class: Primary Plan Desc:MEDICARE INPATIENT Primary Plan Number:[id number] Secondary Plan Desc:[facility] Secondary Plan Number:[id number] Assessment Information [facility] CM Progress Note CM Note CM Note Notes: CM spoke w/ TELLO Webb regarding patient. Pt has Dress syndrome and according to his , his rash has worsen. Spoke w/ MAMADOU Norman and she reports that pt is on steroid IV. D/C unclear at this time. Spoke w/ PT, and she reports that pt is doing well and will be doing therapy 3x a week. Spoke w/ Latasha at [facility]. Latasha spoke w/ and is uncertain if they will continue w/ services. would like pt to have more outpatient PT. CM to follow. Date Signed: 06/28/2017 11:48 AM Electronically Signed By:Fany Rucker [facility] CM Progress Note CM Note CM Note Notes: Spoke w/RN, does not think pt will need homecare, CM attempted to speak w/pt but he was asleep. Anticipate pt will dc home w/support of when medically stable. CM available for any changes. Date Signed: 06/29/2017 04:50 PM Electronically Signed By:Inocencia Callahan [facility] CM Progress Note CM Note CM Note Notes: CM still anticipating independent d/c when ready. CM available should d/c POC change. Date Signed: 07/01/2017 02:00 PM Electronically Signed By:Sandra Meek [facility] CM Progress Note CM Note CM Note Notes: Plan remains the same, pt will dc home w/support of when medically stable. CM available for any changes. Date Signed: 07/03/2017 03:20 PM Electronically Signed By:Inocencia Callahan [facility] CM Progress Note CM Note CM Note Notes: CM met w/ pt and . Bedside RN contacted patient rep who came and met w/ pt and . Pt is being discharged independent today. has set up all of pts outpatient appointments. CM available for any changes. Date Signed: 07/05/2017 11:57 AM Electronically Signed By:Fany Rucker Intervention Information
== END 2017-07-05 15:07 | disposition home or self-care (01) | DRG 682 ==
LOC: INTOOBSV 21:07 → F3E 23:03 → OBSVTOIN 06-20 17:36 → F2N 06-25 09:38 → F3E 06-27 14:34
PROVIDERS: ADMIT Internal Medicine; ATTEND Internal Medicine Pulmonary Disease
PROC: 30233N1 Transfusion of Nonautologous Red Blood Cells into Peripheral Vein, Percutaneous Approach (ICD-10-PCS; principal; 2017-07-04)
DX: N17.0 Acute kidney failure with tubular necrosis (principal); T78.40XA Allergy, unspecified, initial encounter; D72.1 Eosinophilia; L27.0 Generalized skin eruption due to drugs and medicaments taken internally; T36.8X5A Adverse effect of other systemic antibiotics, initial encounter; T84.54XD Infection and inflammatory reaction due to internal left knee prosthesis, subsequent encounter; E87.2 Acidosis; E87.1 Hypo-osmolality and hyponatremia; J96.01 Acute respiratory failure with hypoxia; D62 Acute posthemorrhagic anemia; E83.39 Other disorders of phosphorus metabolism; I10 Essential (primary) hypertension; E11.9 Type 2 diabetes mellitus without complications; G47.33 Obstructive sleep apnea (adult) (pediatric); E78.5 Hyperlipidemia, unspecified; M17.11 Unilateral primary osteoarthritis, right knee
CPT/HCPCS: 82947-QW; 83516-90; 83520-90; 97110-GP; 97116-GP; 97161-GP; 97530-GP; G0378; G8978-GP-CI; G8979-GP-CI; J1200; J1815; J1940; J2997; P9016

== ENCOUNTER → 2018-03-14 | Outpatient (CLI) | payer OTHER | LOC: BMCIMAGING 10:01 | PROVIDERS: ATTEND Internal Medicine | DX: M20.11 Hallux valgus (acquired), right foot (principal); M20.12 Hallux valgus (acquired), left foot; M79.9 Soft tissue disorder, unspecified; M21.611 Bunion of right foot; M19.071 Primary osteoarthritis, right ankle and foot; M19.072 Primary osteoarthritis, left ankle and foot ==